=== PATIENT | female | born 1935 | race Caucasian/White ===

== ENCOUNTER 2020-07-17 10:43 | Outpatient (CLI) | payer MEDICARE, SELFPAY ==
--- NOTE | 2020-07-21 16:47 | WPDHOLTEREM ---
Holter/Event Monitor Holter/Event Monitor Date of procedure: 07/17/20 Procedure Type: 24 hour holter monitor Indications: Cardiac arrhythmia Conclusion: 1. 24 hour holter monitor on 07/17/20. 2. Predominant rhythm is sinus rhythm. HR range 49-110 bpm; average HR 67 bpm. 3. There are 3,196 premature supraventricular complexes, 276 supraventricular couplets, 59 supraventricular bigeminy and 27 supraventricular trigeminy. There are 9 runs of atrial tachycardia, fastest at 140 bpm and longest lasting 99 beats. 4. There are 85 premature ventricular complexes. No ventricular tachycardia. 5. No sinoatrial or atrioventricular blocks. No significant pauses greater than 2 seconds. 6. Patient reports symptoms of shortness of breath, heart flutters which demonstrate Sinus rhythm HR range 77-96 bpm with PAC's and one episode of atrial tachycardia at 112 bpm.
== END 2020-07-17 10:44 | disposition home or self-care (01) ==
PROVIDERS: PCP Family Medicine; Visit Provider Family Medicine
DX: I49.8 Other specified cardiac arrhythmias (principal)
CPT/HCPCS: 93225; 93226

== ENCOUNTER 2020-08-25 08:35 | Outpatient (CLI) | payer MEDICARE, SELFPAY ==
--- NOTE | ~2020-08-25 | US_ITS ---
EXAMINATION: US carotid duplex BI DATE: 08/25/2020 09:36 INDICATION: Other specified symptoms and signs involving the circulatory system. TECHNIQUE: Grayscale, color Doppler, and pulsed Doppler images of the cervical carotid arteries were obtained. The degree of vessel stenosis is placed in one of the following categories: normal, <50%, 5 0-69%, >=70% but less than near-occlusion, near-occlusion, or total occlusion. Note that percent sten osis relative to normal distal artery lumen diameter is indirectly measured from velocity measurement s as described by Giuseppe, et al. Radiology 2003; 229:340-346. COMPARISON: None. FINDINGS: RIGHT: The right common carotid artery (CCA) peak systolic velocity (PSV) is 99 cm/s. The right internal car otid artery (ICA) PSV is 147 cm/s. The right ICA end-diastolic velocity (EDV) is 25 cm/s. The right I CA/CCA PSV ratio is 1.5. Grayscale and color Doppler images yield an estimate of <50% diameter reduct ion from plaque in the ICA. There is antegrade flow in the right vertebral artery. LEFT: The left CCA PSV is 106 cm/s. The left ICA PSV is 130 cm/s. The left ICA EDV is 18 cm/s. The left ICA /CCA PSV ratio is 1.2. Grayscale and color Doppler images yield an estimate of <50% diameter reductio n from plaque in the ICA. There is antegrade flow in the left vertebral artery. IMPRESSION: 1. <50% stenosis in the right internal carotid artery. 2. <50% stenosis in the left internal carotid artery. Reviewed, dictated and finalized at location A.
== END 2020-08-25 08:36 | disposition home or self-care (01) ==
LOC: ANHIMG 08:35
PROVIDERS: PCP Family Medicine; Visit Provider Nurse Practitioner Family
DX: I65.23 Occlusion and stenosis of bilateral carotid arteries (principal)
CPT/HCPCS: 93880

== ENCOUNTER → 2021-02-17 14:06 | Outpatient (CLI) | payer MEDICARE, SELFPAY ==
--- NOTE | ~2021-02-17 | XR_ITS ---
XR chest 2V DATE: 02/17/2021 14:47 INDICATION: Emphysema TECHNIQUE: 2 views COMPARISON: 11/22/2016 PA and lateral chest FINDINGS: Mild cardiomegaly. Mitral annulus calcification. There is extensive thoracic aortic calcifi cation. Prominent diffuse osteopenia. Azygos lobe, normal variant. There is moderate bilateral hyperinflation consistent with clinical diagnosis of emphysema. No pulmon esteban infiltrate or consolidation, pleural effusion or pulmonary vascular congestion or pneumothorax is detected. IMPRESSION: Cardiomegaly Aortic atherosclerosis No active pulmonary disease Diffuse osteopenia Reviewed, dictated and finalized at location A.
== END ==
PROVIDERS: PCP Family Medicine; Visit Provider Family Medicine
DX: J43.8 Other emphysema (principal); I51.7 Cardiomegaly; I70.0 Atherosclerosis of aorta; M85.88 Other specified disorders of bone density and structure, other site
CPT/HCPCS: 71046

== ENCOUNTER 2022-04-09 14:17 | Outpatient (CLI) | payer MEDICARE, SELFPAY ==
--- NOTE | ~2022-04-09 | DEXA_ITS ---
Bone Density Report Name: JINNY LANDAVERDE Age: 87 Sex: Female Ethnicity: White Date of : 1935 Indication: osteopenia; height loss; prior fracture; cancer; Referring Provider: JOHN HENLEY Study: Bone densitometry was performed. Exam Date: April 09, 2022 Accession number: [id number] Bone Density: Region BMD T-score Z-score Classification AP Spine(L3, L4) 0.966 -1.2 1.8 Osteopenia Femoral Neck (Left) 0.645 -1.8 0.7 Osteopenia Total Hip (Left) 0.699 -2.0 0.3 Osteopenia Femoral Neck (Right) 0.612 -2.1 0.4 Osteopenia Total Hip (Right) 0.648 -2.4 -0.1 Osteopenia Total Hip Mean 0.674 -2.2 0.1 Osteopenia World Health Organization criteria for BMD impression classify patients as: Normal (T-score at or above -1.0), Osteopenia (T-score between -1.0 and -2.5), or Osteoporosis (T-score at or below -2.5). 10-year Fracture Risk: FRAX not reported because: Prior hip or vertebral fracture Previous Exams: Region Exam Age BMD T-score BMD Change BMD Change Date g/cm2 vs Baseline vs Previous AP Spine (L3-L4) 04/09/2022 87 0.966 -1.2 0.044 (4.7%)* 0.044 (4.7%)* 09/07/2016 81 0.922 -1.6 Total Hip(Left) 04/09/2022 87 0.699 -2.0 -0.051 (-6.9%) -0.051 (-6.9%) 09/07/2016 81 0.751 -1.6 Total Hip(Right) 04/09/2022 87 0.648 -2.4 -0.028 (-4.2%) -0.028 (-4.2%) 09/07/2016 81 0.676 -2.2 *Denotes significance at 95% confidence level, LSC for AP Spine = 0.022 g/cm2, LSC for Total Hip = 0.027 g/cm2 Clinical Information Provided by Patient: Have had a previous hip or vertebral fracture Has had a low trauma fracture Has used the following medications: Vitamin D, Calcium Has the following medical conditions: Cancer Patient maximum height was 66 Menopause Age: 48 No regular weight bearing exercise Drinks caffeinated beverages Onset of menses at age 13 Number of children 1 Impression: The patient has low bone mass, based on the Right Total Hip T-score. The patient has risk factors, including: previous fracture. The BMD for the Total Hip(Left) decreased, changing by -6.9% since the last DXA exam. The BMD for the Total Hip(Right) decreased, changing by -4.2% since the last DXA exam. Discussion: INCREASED RISK OF FRACTURE DUE TO HISTORY OF FRACTURE. The patient's previous fracture puts the patient at high risk of a future fracture. In untreated patients, the risk of osteoporotic fracture increases approximately two-fold for each 1.0 SD dec
== END 2022-04-09 14:18 | disposition home or self-care (01) ==
PROVIDERS: PCP Family Medicine; Visit Provider Internal Medicine Endocrinology, Diabetes & Metabolism
DX: M85.89 Other specified disorders of bone density and structure, multiple sites (principal); E05.90 Thyrotoxicosis, unspecified without thyrotoxic crisis or storm
CPT/HCPCS: 77080

== ENCOUNTER 2022-05-23 11:14 | Inpatient (IN) | payer MEDICARE, SELFPAY ==
[2022-05-23] VITALS (8 sets, daily range): BP systolic 134–163; BP diastolic 44–69; PULSE 70–82; RESP 16–18; TEMP 36.3–36.4; O2SAT 95–100; BMI 24.4
--- NOTE | ~2022-05-23 | XR_ITS ---
XR chest 2V DATE: 05/23/2022 11:45 INDICATION: Shortness of breath TECHNIQUE: PA and lateral views COMPARISON: 2 view chest FINDINGS: Borderline heart size. Aortic calcification. There is mild pulmonary vascular congestion and redistribution. There are small pleural effusions. There is patchy bilateral lower lung infiltrate and/or atelectasis, left greater than right. Differen tial diagnosis for the pulmonary infiltrates includes pneumonia, aspiration and/or pulmonary edema. Diffuse osteopenia. Dextroscoliosis of the thoracolumbar spine. IMPRESSION: Mild congestive heart failure Bilateral lower lung infiltrates, left greater than right, suggesting pneumonia, atelectasis and/or p ulmonary edema Bilateral small pleural effusions Aortic calcification Reviewed, dictated and finalized at location A. IMPRESSION: Mild congestive heart failure Bilateral lower lung infiltrates, left greater than right, suggesting pneumonia , atelectasis and/or pulmonary edema Bilateral small pleural effusions Aortic calcification
--- NOTE | 2022-05-23 11:21 | ECG_ITS ---
Measurements Intervals [place] Rate: 76 P: 95 SC: 235 QRS: -7 QRSD: 138 T: 104 QT: 426 QTc: 480 Interpretive Statements SINUS RHYTHM WITH FIRST DEGREE AV BLOCK LEFT BUNDLE BRANCH BLOCK BASELINE ARTIFACT- V1 ABNORMAL ECG Electronically Signed On 05-23-2022 23:17:09 CDT by Sony Mauricio D.O.
[2022-05-23 11:48] LABS: Basophils Percent Auto 0.4 % (0.2-1.2); Eosinophils Absolute Auto 0.1 K/mm3 (0-0.3); Eosinophils Percent Auto 0.5 % (0-4.4); Hematocrit 34.5 % (37.0-47.0); Hemoglobin 10.7 g/dL (12.0-15.0); Immature Granulocyte Absolute 0.04 K/mm3 (0.00-0.031); Immature Granulocyte Percent A 0.4 % (0-0.5); Lymphocytes Absolute Auto 1.07 K/mm3 (0.9-3.2); Lymphocytes Percent Auto 10.3 % (18.3-44.2); Mean Corpuscular Hemoglobin 28.2 pg (26-34); Mean Platelet Volume 9.6 fl (7.4-10.4); Monocytes Absolute Auto 0.6 K/mm3 (0.1-0.6); Monocytes Percent Auto 5.6 % (2.6-8.5); Neutrophils Absolute Auto 8.6 K/mm3 (1.3-6.7); Neutrophils Percent Auto 82.8 % (45.5-73.1); Platelet Count Result 389 k/mm3 (150-375); Red Blood Count 3.79 M/mm3 (4.2-5.4); Red Cell Distribution Width 13.7 % (11.5-14.5); White Blood Count 10.4 K/mm3 (4.5-10.0)
[2022-05-23 12:02] LABS: Alanine Aminotransferase 31 U/L (6-35); Albumin Level 4.3 g/dL (3.5-5.1); Alkaline Phosphatase 74 U/L (38-126); Anion Gap 4 mmol/L (8-16); Aspartate Amino Transferase 32 U/L (14-36); Bilirubin,Total 1.2 mg/dL (0.2-1.3); Blood Urea Nitrogen 13 mg/dL (7-17); Calcium 8.8 mg/dL (8.4-10.2); Carbon Dioxide 31 mmol/L (22-30); Chloride 96 mmol/L (98-107); Estimated CRCL calculation 37 ml/min; Estimated Glomerular Filt Rate > 60; Glucose 115 mg/dL (65-110); Potassium 4.4 mmol/L (3.4-5.0); Sodium 131 mmol/L (137-145)
[2022-05-23 14:28] LABS: SARS-CoV-2 RNA PCR Negative
--- NOTE | 2022-05-23 14:36 | ED.GENADULT ---
HPI - General Adult General Chief complaint: Shortness of Breath/Dyspnea Stated complaint: SHORTNESS OF BREATH Time Seen by Provider: 05/23/22 13:32 History of Present Illness HPI narrative: 87-year-old female presented the emergency department for evaluation of worsening exertional shortness of breath over the last 2 days. Patient states that normally she is able to walk a fairly significant distance without having any shortness of breath. Patient states since Tuesday she is getting tired simply by walking around the room. Patient denies any prior history of congestive heart failure. Patient does have lower extremity edema which she states is normal for her. Related Data Home Medications Medication Instructions Recorded Confirmed aspirin 81 mg tablet,delayed 81 mg PO DAILY 01/05/20 03/01/22 release (Aspir-) cholecalciferol (vitamin D3) 50 50 mcg PO DAILY 08/28/21 03/01/22 mcg (2,000 unit) capsule sodium chloride 5 % eye drops 1 drp EACH EYE BID 08/28/21 03/01/22 Allergies Allergy/AdvReac Type Severity Reaction Status Date / Time alendronate sodium AdvReac Unknown Gastrointestinal Verified 05/23/22 11:21 [From Fosamax] Upset Review of Systems Review of Systems: CONSTITUTIONAL: Denies fever, chills, or sweats. EYES: Denies visual changes, redness, or discharge. ENT: Denies rhinorrhea, congestion, sore throat, or otalgia. CARDIOVASCULAR: Denies chest pain, palpitations, or edema. RESPIRATORY: See HPI GASTROINTESTINAL: Denies abdominal pain, nausea, vomiting, or diarrhea. GENITOURINARY: Denies dysuria or hematuria. SKIN: Denies rash or itching. MUSCULOSKELETAL: Denies back pain, joint pain, or myalgia. NEUROLOGIC: Denies headache, numbness, or weakness. [facility] Past Medical History Medical History (Updated 05/23/22 @ 18:44 by Edu Womack MD) Anxiety disorder, unspecified BMI 26.0-26.9,adult Carotid bruit Edema of both lower extremities Essential (primary) hypertension GERD without esophagitis Graves disease Hyperthyroidism Low vitamin D level Lumbar spondylosis Murmur Osteopenia Other emphysema Psoriasis Sinus arrhythmia Weight loss Surgical History Surgical History History of cataract surgery both eyes 06/18/21 07/02/21 Family History Family History Sibling Family history of diabetes mellitus in first degree relative Family history of pancreatic cancer Family history of malignant neoplasm of bone Family history of malignant neoplasm of breast in first degree relative Father Family history of pancreatic cancer Social History Social History Second hand tobacco smoke exposure: No Alcohol intake: never Exam Narrative: APPEARANCE: Well appearing, no pain, no distress, well-nourished. HEAD: normocephalic, atraumatic. EYES: PERRLA/EOMI, conjunctivae clear. THROAT: Pharynx clear, no exudate. NECK: Supple. No adenopathy, no masses. RESPIRATORY: Airway patent, respirations nonlabored. Rhonchi bilaterally. CARDIOVASCULAR: Regular rate and rhythm without murmurs rubs or gallops. ABDOMINAL: Soft, nontender, nondistended, normal bowel sounds MUSCULOSKELETAL: Moves all extremities. Lower extreme edema worse on right than left NEURO: Alert. Cranial nerves II through XII intact. Grossly intact SKIN: Warm, dry. Normal Color Course Course Emergency Course: Patient had a chest x-ray showing pulm edema versus pneumonia. Patient does hav an elevated BNP. Patient is afebrile. Patient does have a mild leukocytosis. COVID is negative. Low suspicion for pneumonia higher suspicion for pulmonary edema/new onset CHF. Patient has no prior history of CHF. Patient does not take a diuretic. Patient was treated with IV Lasix and did have a significant output to this. Patient was ambulated in the emergency department and still state
[2022-05-23 14:46] LABS: NT Pro B Type Natriuretic Pept 2130 pg/mL (5-100)
[2022-05-23] MEDS: FUROSEMIDE INJ 40 MG/4 ML VIAL IV PUSH ×2 (15:33→21:08)
--- NOTE | 2022-05-23 18:09 | ECG_ITS ---
Rate 76 CO 235 QRSd 138 QT 426 QTc 480 --[place]-- P 95 QRS -7 T 104 SINUS RHYTHM WITH FIRST DEGREE AV BLOCK LEFT BUNDLE BRANCH BLOCK BASELINE ARTIFACT- V1 ABNORMAL ECG Electronically Signed On 05-23-2022 23:17:09 CDT by Sony Mauricio D.O. NO PREVIOUS ECG AVAILABLE FOR COMPARISO MTDD
--- NOTE | 2022-05-23 18:48 | PM.IMHP ---
H&P: HPI History of Present Illness Date/Time: 05/23/22 18:20 Chief Complaint: Dyspnea Narrative: This pleasant 87 year old female patient with Significant past medical history of anxiety, carotid bruit, bilateral lower extremity edema that is chronic, hypertension, GERD, COPD, Graves disease, hyperthyroidism, vitamin-D deficiency, lumbar spondylosis, heart murmur, osteopenia, psoriasis, sinus arrhythmia who presents to the emergency room this evening with complaints of several days of increased dyspnea with exertion. Patient has no prior history of heart failure, and she endorses that her bilateral lower extremities are Always swollen to some degree. She denies any new cough, fever, chest pain or dyspnea at rest. The only aggravating factor is increased exertion. She was given a dose of IV Lasix in the emergency room with good results, however she does not feel safe going home at this time. Her chest x-ray was significant for pulmonary edema versus pneumonia and her BNP was greater than 2130. Patient has not shown any symptoms of acute infection. No echocardiogram is noted on file for this patient. Her COVID test is negative. Patient denies this feeling like a typical COPD exacerbation for her. Hospitalist service is admitting her to the hospital for cardiac evaluation for potential heart failure, with cardiology consult and further workup of dyspnea. At the time of my exam the patient denies any chest pain, she denies any dyspnea she is lying still in bed at this time. She denies any nausea, vomiting, diarrhea and no urinary complaints of burning, urgency, frequency, hematuria. Review of Systems Review of Systems: All systems reviewed & are unremarkable except as noted in HPI and below PMFSH Past Medical History Medical History Anxiety disorder, unspecified BMI 26.0-26.9,adult Carotid bruit Edema of both lower extremities Essential (primary) hypertension GERD without esophagitis Graves disease Hyperthyroidism Low vitamin D level Lumbar spondylosis Murmur Osteopenia Other emphysema Psoriasis Sinus arrhythmia Weight loss Surgical History Surgical History History of cataract surgery both eyes 06/18/21 07/02/21 Family History Family History Sibling Family history of diabetes mellitus in first degree relative Family history of pancreatic cancer Family history of malignant neoplasm of bone Family history of malignant neoplasm of breast in first degree relative Father Family history of pancreatic cancer Social History Social History Second hand tobacco smoke exposure: No Alcohol intake: never Meds Home Medications and Allergies Home Medications Medication Instructions Recorded Confirmed Type aspirin 81 mg tablet,delayed 81 mg PO DAILY 01/05/20 03/01/22 History release (Aspir-) calcipotriene 0.005 % topical 1 applic topical BID #60 grams 07/07/20 03/01/22 Rx cream (Dovonex) bisacodyl 5 mg tablet,delayed 5 mg PO ONCE #20 tabs 02/17/21 03/01/22 Rx release (Bisa-Lax (bisacodyl)) cholecalciferol (vitamin D3) 50 50 mcg PO DAILY 08/28/21 03/01/22 History mcg (2,000 unit) capsule sodium chloride 5 % eye drops 1 drp EACH EYE BID 08/28/21 03/01/22 History lisinopril 20 mg tablet 20 mg PO DAILY #30 tabs 09/27/21 03/01/22 Rx omeprazole 40 mg capsule,delayed See Rx Instructions .Route 12/17/21 03/01/22 Rx release .COMPLEX #90 caps methimazole 10 mg tablet 10 mg PO DAILY 90 days #90 tabs 12/28/21 03/01/22 Rx metoprolol succinate 25 mg 50 mg PO DAILY #90 tabs 03/02/22 Rx tablet,extended release 24 hr sennosides 8.6 mg tablet (Senokot) 17.2 mg PO DAILY PRN constipation 03/22/22 Rx #30 tabs alendronate 70 mg tablet (Fosamax) 70 mg PO WEEKLY #14 t
--- NOTE | 2022-05-23 19:55 | ADMGEN ---
This patient, Nestor Carter, was admitted to Medical Room 246-01. Patient/family oriented to hospital policies and general routines including ID bracelet, bed and alarms, visiting hours, pain management, procedures, bathroom and other care routines, personal items, smoking policy, room service/diet, and visiting hours. Information on how to activate the Rapid Response Team has been discussed. Patient/Family are encouraged to report perceived risks to care and to ask questions if they do not understand what they are told or what they should do.
[2022-05-23] MEDS: FLUTICASONE/SALMETEROL 115-21 MCG INHALER 1 PUFF 2 PUFF INHALATION (20:32)
[2022-05-23] MEDS: SENNOSIDES 8.6 MG TABLET PO (21:08)
[2022-05-24] VITALS (18 sets, daily range): BP systolic 106–146; BP diastolic 38–73; PULSE 58–150; RESP 16–18; TEMP 36.5–37; O2SAT 93–97; BMI 24.3
--- NOTE | 2022-05-24 | ECHO_ITS ---
Patient Info Name: Nestor Carter Age: 87 years : 1935 Gender: Female Ht: 61 in Wt: 136 lbs BSA: 1.64 m2 HR: 92 bpm BP: 146 / 56 mmHg Heart Rhythm: Sinus Rhythm Exam Date: 05/24/2022 8:33 AM Exam Location: [facility] Patient Status: Inpatient Admit Date: 05/23/2022 Staff Ordering Physician: Sola Ocasio Leaf Tinner: Rodrigo Jalloh RDCS, RT Attending Provider: Cortez Jay MD Referring Physician: Amarjit FARRAR; Exam Type: CA echo doppler color flow Study Info Indications R06.00 - Dyspnea, unspecified Complete two-dimensional, color flow and Doppler transthoracic echocardiogram is performed. Strain analysis performed. Summary 1. Complete two-dimensional, color flow and Doppler transthoracic echocardiogram is performed. 2. There is severe concentric increased left ventricular wall thickness. 3. Left ventricular systolic function is hyperdynamic, estimated at >70%. 4. The left ventricular diastolic function is grade II diastolic dysfunction. 5. Left atrial chamber dimension is severely enlarged. 6. Severe mitral annular calcification. 7. There is trace mitral valve regurgitation. Left Ventricle Left ventricular chamber dimension is normal. Left ventricular systolic function is hyperdynamic, estimated at >70%. There is severe concentric increased left ventricular wall thickness. The left ventricular diastolic function is grade II diastolic dysfunction. Right Ventricle Right ventricular chamber dimension is normal. Left Atria Left atrial chamber dimension is severely enlarged. Right Atria Right atrial chamber dimension is normal. Aortic Valve The aortic valve is normal. Pulmonic Valve The pulmonic valve is normal. Mitral Valve The mitral valve has normal leaflets. There is trace mitral valve regurgitation. Severe mitral annular calcification. Tricuspid Valve The tricuspid valve leaflets are normal. There is mild tricuspid valve regurgitation. Severe pulmonary hypertension, estimated pulmonary arterial systolic pressure is 70 mmHg. Pericardium/Pleural The pericardium appears normal. Aorta The aortic root size at the sinus of Valsalva is normal. Left Ventricular Outflow Tract Name Value Normal LVOT 2D LVOT Diameter 2.0 cm LVOT Doppler LVOT Peak Gradient 9 mmHg LVOT Mean Gradient 4 mmHg LVOT VTI 27 cm LVOT VTI/AV VTI Ratio 0.9 LVOT Stroke Volume 82 ml LVOT CO 7.5 l/min LVOT CI 4.5 l/min/m2 Mitral Valve Name Value Normal MV Doppler MV Decel [place] 863 cm/s2 MV PHT 47 ms MV Area (PHT)
[2022-05-24 05:10] LABS: Basophils Percent Auto 0.5 % (0.2-1.2); Eosinophils Absolute Auto 0.1 K/mm3 (0-0.3); Eosinophils Percent Auto 0.9 % (0-4.4); Hematocrit 34.6 % (37.0-47.0); Hemoglobin 10.6 g/dL (12.0-15.0); Immature Granulocyte Absolute 0.02 K/mm3 (0.00-0.031); Immature Granulocyte Percent A 0.3 % (0-0.5); Lymphocytes Percent Auto 13.5 % (18.3-44.2); Mean Corpuscular HGB Conc 30.6 g/dl (32-36); Mean Corpuscular Hemoglobin 27.9 pg (26-34); Mean Corpuscular Volume 91.1 fl (80-100); Mean Platelet Volume 9.9 fl (7.4-10.4); Monocytes Absolute Auto 0.6 K/mm3 (0.1-0.6); Monocytes Percent Auto 7.8 % (2.6-8.5); Neutrophils Absolute Auto 5.7 K/mm3 (1.3-6.7); Platelet Count Result 357 k/mm3 (150-375); Red Cell Distribution Width 13.8 % (11.5-14.5); White Blood Count 7.4 K/mm3 (4.5-10.0)
[2022-05-24 05:20] LABS: Alanine Aminotransferase 26 U/L (6-35); Albumin Level 3.9 g/dL (3.5-5.1); Alkaline Phosphatase 69 U/L (38-126); Anion Gap 3 mmol/L (8-16); Aspartate Amino Transferase 25 U/L (14-36); Bilirubin,Total 0.9 mg/dL (0.2-1.3); Blood Urea Nitrogen 13 mg/dL (7-17); Calcium 8.6 mg/dL (8.4-10.2); Carbon Dioxide 35 mmol/L (22-30); Chloride 96 mmol/L (98-107); Estimated CRCL calculation 29 ml/min; Estimated Glomerular Filt Rate 59; Glucose 103 mg/dL (65-110); Magnesium 1.9 mg/dL (1.6-2.3); Potassium 3.9 mmol/L (3.4-5.0); Sodium 134 mmol/L (137-145)
--- NOTE | 2022-05-24 07:47 | PM.IMPN ---
Progress Note: A&P Assessment and Plan (1) Exertional shortness of breath: Code(s): R06.02 - Shortness of breath Status: Acute Assessment and Plan: - suspect heart failure. - Echocardiogram pending - daily weight - accurate intake and output -consult Cardiology, appreciate assistance and recommendations - continue Lasix 40 mg q.12 hours IV push. - daily labs and vital signs. - Supplemental potassium initiated at 10 mEq p.o. daily, may increase or discontinue as needed. - heart healthy diet (2) Edema of both lower extremities: Code(s): R60.0 - Localized edema Status: Acute Assessment and Plan: - Etiology uncertain. Suspect secondary to certain degree of heart failure, however may also be secondary to Norvasc. - Monitor for resolution and or worsening. - Elevate extremities - fall precautions - heart healthy diet (3) Hyperthyroidism: Code(s): E05.90 - Thyrotoxicosis, unspecified without thyrotoxic crisis or storm Status: Acute Assessment and Plan: - Graves disease, previously took methimazole. - check TSH. - continue telemetry and metoprolol. (4) Low vitamin D level: Code(s): R79.89 - Other specified abnormal findings of blood chemistry Status: Acute Assessment and Plan: - Continue supplemental cholecalciferol (5) Essential (primary) hypertension: Code(s): I10 - Essential (primary) hypertension Status: Acute Assessment and Plan: - continue home medications of lisinopril 20 mg p.o. daily, metoprolol succinate 50 mg p.o. daily and amlodipine 10 mg daily - monitor blood pressure with vital signs. - Heart healthy diet (6) Anxiety disorder, unspecified: Qualifiers: Anxiety disorder type: generalized anxiety disorder Qualified Code(s): F41.1 - Generalized anxiety disorder Code(s): F41.9 - Anxiety disorder, unspecified Status: Acute Assessment and Plan: - continue p.r.n. Xanax (7) COPD (chronic obstructive pulmonary disease): Code(s): J44.9 - Chronic obstructive pulmonary disease, unspecified Status: Acute Assessment and Plan: - continue budesonide/ formoterol here Advair is substituted. - Monitor SpO2 with vital signs. Subjective Date/time seen: 05/24/22 07:47 Patient is alert and oriented x4. She is sitting up in the bed. Echocardiogram and just finished. Cardiology will be consulted for further recommendations and management pending echocardiogram. Patient current continues to receive diuresis 40 mg IVP Lasix. With good results. Review of Systems Review of Systems: All systems reviewed & are unremarkable except as noted in HPI and below Exam Narrative: General: No acute distress. Mental Status: Awake, alert and oriented to person, place, and time with clear speech. Skin: Skin in warm, dry and intact without rashes or lesions. Head: Normocephalic and atraumatic. Eyes: Conjunctivae are clear without exudates or hemorrhage. Sclera is non-icteric. EOM are intact, PERRLA. Ears: The external ear and canal are non-tender and without swelling or discharge. Nose: Nasal mucosa is pink and moist. Septum midline. Nares patent bilaterally. Throat: Oral mucosa pink and moist with good dentition. Tongue midline. Neck: The neck supple without adenopathy. Trachea midline. No JVD. Cardiac: S1 and S2 regular rate and rhythm. Positive murmurs, no gallops, or rubs auscultated. Respiratory: Chest wall symmetric, nontender and without deformity or trauma. Respirations even and unlabored. Lung sounds are clear to auscultation in all lobes bilaterally without wheezes, rhonchi, or rales. Abdominal: Abdomen soft, round and non-tender to palpation. Bowel sounds present and normoactive in all 4 quadrants. Spine: Neck and back with grossly normal curvature, no deformity in appearance or signs of trauma. Extremities: Upper and lower extremities atraumatic wit
[2022-05-24] MEDS: POTASSIUM CHLORIDE 10 MEQ TABLET.ER PO (08:03)
[2022-05-24] MEDS: ENOXAPARIN 40 MG/0.4 ML SYRINGE SUB-Q (08:04)
[2022-05-24] MEDS: lisinopriL 20 MG TABLET PO (08:04)
[2022-05-24] MEDS: PANTOPRAZOLE 40 MG TABLET PO (08:04)
[2022-05-24] MEDS: amLODIPine BESYLATE 5 MG TABLET 10 MG PO (08:04)
[2022-05-24] MEDS: ASPIRIN 81 MG ENTERIC TABLET PO (08:04)
[2022-05-24] MEDS: FUROSEMIDE INJ 40 MG/4 ML VIAL IV PUSH ×2 (08:04→21:12)
[2022-05-24] MEDS: CHOLECALCIFEROL 1,000 UNITS TABLET 2000 UNITS PO (08:04)
[2022-05-24] MEDS: METOPROLOL SUCCINATE EXT REL 50 MG TABCR PO (08:05)
--- NOTE | 2022-05-24 10:56 | PCNSR ---
On 05/24/22, the student, Josephine Scott, provided care and completed [facility] documentation on this patient. I have reviewed the student's documentation and agree with the findings.
--- NOTE | 2022-05-24 13:31 | PM.CNCAR ---
Assessment and Plan Assessment and plan (1) CHF (congestive heart failure): Qualifiers: Heart failure type: unspecified Code(s): I50.9 - Heart failure, unspecified Status: Acute Plan this is an 87-year-old lady with longstanding hypertension she has mild mitral valve regurgitation impressive left ventricular hypertrophy with vigorous systolic function. She presents with some shortness of breath and appears to have mild diastolic heart failure. She is receiving IV furosemide in is improved. I would recommend probably tomorrow transition her to oral furosemide in hopes of preventing over diuresis. Her physical exam at this time does not suggest that she is significantly or severely volume overloaded. I reassured her that her echocardiogram continues to demonstrate no evidence of systolic heart failure and her valvular heart disease is quite mild. I would anticipate her being ready for discharge in the next 24-48 hours. A low dose of oral furosemide should be part of her discharge regimen. Cortez Suarez MD [facility] History of Present Illness History of Present Illness Consult date/time: 05/24/22 13:31 Consult reason: shortness of breath Reason For Visit: CHF, Exertional Shortness of Breath Narrative: This is a very pleasant elderly 87-year-old lady that I see in the office for follow-up of mild valvular heart disease and hypertension. She entered the hospital here yesterday because of some shortness of breath that is been coming on she thinks for about 5-7 days that she has not had before. When the shortness of breath became more problematic couple of days ago she finally came in for evaluation. She was felt to be in some mild congestive heart failure by the appearance of her chest x-ray with some mild small bilateral pleural effusions. She was placed on some IV furosemide and is feeling better today. She has a history of longstanding hypertension and left ventricular hypertrophy with good systolic function. I saw her in the hospital for the last couple of years initially because of an abnormal Holter monitor. She had the sense of some palpitations and a Holter monitor had been done by her PCP which demonstrated a lot of atrial ectopic activity but no other significant arrhythmia. She has a cyst murmur of mitral valve regurgitation which is mild by echo and with these issues she has been followed in the office. Her last visit with me was about 6 months ago which time she was asymptomatic. Last year she was found also to have Graves disease she was significantly hyperthyroid. I started her on beta-shayne treatment to help the symptoms of this she was seen by an elective machinist 2nd shift treated this with methimazole. Recently she states finally her laboratory data demonstrates her to be euthyroid. She continues to take methimazole. Echocardiogram done during this hospitalization which I just looked at this morning continues to show impressive concentric LVH with vigorous, hyperdynamic looking systolic function a heavily calcified mitral valve annulus and a markedly dilated left atrium. She is in sinus rhythm with left bundle branch block. He is comfortable at the time of providing this history she is denying any orthopnea PND or accumulating edema. Review of Systems Constitutional: Constitutional: Reports no additional constitutional complaints Eyes: Eyes: Reports no additional eye complaints ENT: Reports system reviewed and no additional complaints, except as documented Cardiovascular: Cardiovascular: Reports no additional cardiovascular complaints Respiratory: Respiratory: Reports dyspnea on exertion Gastrointestinal: Gastrointestinal: Reports no additional gastrointestinal complaints Musculoskeletal: Musculoskeletal: Reports no additional musculoskeletal complaints Integumentary/Breasts: Skin/Breast: Reports system reviewed and no additional complaints, except as docu Neurologic: Reports sys
--- NOTE | 2022-05-24 16:21 | ECG_ITS ---
Measurements Intervals [place] Rate: 151 P: TN: 0 QRS: -27 QRSD: 124 T: 125 QT: 296 QTc: 470 Interpretive Statements SUPRAVENTRICULAR TACHYCARDIA LEFT BUNDLE BRANCH BLOCK ABNORMAL ECG Electronically Signed On 05-24-2022 18:54:35 CDT by Sony Mauricio D.O.
[2022-05-24] MEDS: ALPRAZolam (*CRX) 0.25 MG TABLET PO (16:36)
[2022-05-24] MEDS: SODIUM CHLORIDE 0.9% IV 500 ML 100 ML IRRIGATION (16:45)
--- NOTE | 2022-05-24 16:45 | PC.NURSE ---
1615 Pt c/o nausea and feeling hot. On tele with hr jumping up in 150'2 then back down to low 100's. Bp 130/73. RA sat 97%. Wendy Guo HEAD TELLER notified
--- NOTE | 2022-05-24 16:47 | PC.NURSE ---
1624 [facility]ARD ESC[facility] SET UP ON FLOOR TO SEE PATIENT. STAT EKG ORDERED.
[2022-05-24] MEDS: METOPROLOL TARTRATE 12.5 MG TABLET PO (16:48)
--- NOTE | 2022-05-24 18:16 | PC.NURSE ---
This patient, Nestor Carter, was transferred to IMU on 05/24/22 at 1816. Personal belongings sent with patient. Report given to LIZZETH ZHENG. Appropriate documentation sent with patient.
[2022-05-24] MEDS: AMIODARONE 150 MG/D5W 100 ML 150 MG/100 ML BAG 600 MG IV CONT (18:21)
--- NOTE | 2022-05-24 18:36 | PC.NURSE ---
This patient, Nestor Carter, was received from [[id number] ] on 05/24/22 at 1808. Patient/family oriented to unit policies and routines
[2022-05-24] MEDS: FLUTICASONE/SALMETEROL 115-21 MCG INHALER 1 PUFF 2 PUFF INHALATION (20:30)
[2022-05-24] MEDS: AMIODARONE 360 MG/D5W 200 ML 360 MG/200 ML BAG 33.33 MG IV CONT (21:00)
[2022-05-24] MEDS: ENOXAPARIN 60 MG/0.6 ML SYRINGE 58 MG SUB-Q (21:13)
[2022-05-25] VITALS (20 sets, daily range): BP systolic 98–122; BP diastolic 37–46; PULSE 63–88; RESP 16–20; TEMP 36.4–36.8; O2SAT 97–99
[2022-05-25] MEDS: AMIODARONE 360 MG/D5W 200 ML 360 MG/200 ML BAG 16.67 MG IV CONT (03:15)
[2022-05-25] MEDS: PANTOPRAZOLE 40 MG TABLET PO (08:34)
[2022-05-25] MEDS: ASPIRIN 81 MG ENTERIC TABLET PO (08:34)
[2022-05-25] MEDS: CHOLECALCIFEROL 1,000 UNITS TABLET 2000 UNITS PO (08:34)
[2022-05-25] MEDS: POTASSIUM CHLORIDE 10 MEQ TABLET.ER PO (08:34)
[2022-05-25] MEDS: FLUTICASONE/SALMETEROL 115-21 MCG INHALER 1 PUFF 2 PUFF INHALATION ×2 (09:09→19:21)
--- NOTE | 2022-05-25 09:21 | PM.IMPN ---
Progress Note: A&P Assessment and Plan (1) Exertional shortness of breath: Code(s): R06.02 - Shortness of breath Status: Acute Assessment and Plan: - Echo from yesterday 05/24/2022:?1. Complete two-dimensional, color flow and Doppler transthoracic echocardiogram is performed. ? 2. There is severe concentric increased left ventricular wall thickness. ? 3. Left ventricular systolic function is hyperdynamic, estimated at >70%. ? 4. The left ventricular diastolic function is grade II diastolic dysfunction. ? 5. Left atrial chamber dimension is severely enlarged. ? 6. Severe mitral annular calcification. ? 7. There is trace mitral valve regurgitation. - daily weight - accurate intake and output -I spoke with Cardiology regarding patient's treatment plan. Will switch her to oral Lasix now that her DM a is pretty much gone now. Patient had a run of SVT yesterday which may be atrial flutter. May consider anticoagulation. Patient's Ronald Vasc score is a 5. Patient is on subcu Lovenox therapeutic at this time. Further recommendation per Cardiology. -change IV Lasix to p.o. today and continue with supplemental potassium. - daily labs and vital signs. - Supplemental potassium initiated at 10 mEq p.o. daily, may increase or discontinue as needed. - heart healthy diet -continue with lisinopril. However Norvasc may be causing some edema as well. (2) Edema of both lower extremities: Code(s): R60.0 - Localized edema Status: Acute Assessment and Plan: - may also be secondary to Norvasc. - Monitor for resolution and or worsening. - Elevate extremities - fall precautions - heart healthy diet -daily weights. -strict I&O. -continue with p.o. Lasix and potassium (3) Hyperthyroidism: Code(s): E05.90 - Thyrotoxicosis, unspecified without thyrotoxic crisis or storm Status: Acute Assessment and Plan: - Graves disease, previously took methimazole. - continue telemetry and metoprolol. -TSH is 3.080. (4) Low vitamin D level: Code(s): R79.89 - Other specified abnormal findings of blood chemistry Status: Acute Assessment and Plan: - Continue supplemental cholecalciferol (5) Essential (primary) hypertension: Code(s): I10 - Essential (primary) hypertension Status: Acute Assessment and Plan: - continue home medications of lisinopril 20 mg p.o. daily, metoprolol succinate 50 mg p.o. daily and amlodipine 10 mg daily - monitor blood pressure with vital signs. - Heart healthy diet -her blood pressure is low today. (6) Anxiety disorder, unspecified: Qualifiers: Anxiety disorder type: generalized anxiety disorder Qualified Code(s): F41.1 - Generalized anxiety disorder Code(s): F41.9 - Anxiety disorder, unspecified Status: Acute Assessment and Plan: - continue p.r.n. Xanax (7) COPD (chronic obstructive pulmonary disease): Code(s): J44.9 - Chronic obstructive pulmonary disease, unspecified Status: Acute Assessment and Plan: - continue budesonide/ formoterol here Advair is substituted. - Monitor SpO2 with vital signs. Plan I had plan to discharge her today. However spoke with cardiology who is going to determine whether not the patient will be on anticoagulation. The patient is currently on an aspirin. The patient stated that she is too weak to go home today. However the nurse stated that the patient was able to walk to the bathroom without difficulty. Her edema is down and she is -580 mL on her I/o. However the patient stated that she lives home alone and does not feel comfortable going home today. I will have PT and OT evaluate her and have palliative care physician evaluate the patient for some home health. Subjective Date/time seen: 05/25/22 09:21Thiherb is a 87-year-old female patient who came in on 05/24/2022 with exertional shortness of breath. The patient was started on IV Lasix and h
[2022-05-25] MEDS: METOPROLOL SUCCINATE EXT REL 50 MG TABCR PO (09:51)
--- NOTE | 2022-05-25 10:47 | PM.PNCARD ---
Progress Note: A&P Assessment and Plan (1) CHF (congestive heart failure): Qualifiers: Heart failure type: unspecified Code(s): I50.9 - Heart failure, unspecified Status: Acute Assessment and Plan: Presents with mild shortness of breath and is being treated for acute on chronic diastolic heart failure. Improved with IV diuresis. Should be shifted to a low dose of p.o. furosemide upon discharge. (2) SVT (supraventricular tachycardia): Code(s): I47.1 - Supraventricular tachycardia Status: Acute Assessment and Plan: Yesterday evening had some SVT and was symptomatic with palpitations, nausea, light headedness. She converted to sinus rhythm on amiodarone drip which has been stopped at this point. Will place 30 day traffic monitor specialist to assess for recurrence of SVT (? atrial flutter) or any other arrhythmias. Continue usual beta shayne dose. Subjective Date/time seen: 05/25/22 10:47 Cardiology follow up for CHF, SVT Patient transferred to IMU yesterday evening because of SVT that she was very symptomatic with. She converted to sinus rhythm on amiodarone drip which has now been discontinued. She is feeling much better this morning and denies any palpitations, shortness of breath. She complains of feeling weak. Review of Systems Constitutional: Constitutional: Reports no additional constitutional complaints Eyes: Eyes: Reports no additional eye complaints ENT: Reports system reviewed and no additional complaints, except as documented Cardiovascular: Cardiovascular: Reports no additional cardiovascular complaints and Reports dyspnea on exertion Respiratory: Respiratory: Reports dyspnea on exertion Gastrointestinal: Gastrointestinal: Reports no additional gastrointestinal complaints Musculoskeletal: Musculoskeletal: Reports no additional musculoskeletal complaints Integumentary/Breasts: Skin/Breast: Reports system reviewed and no additional complaints, except as docu Neurologic: Reports system reviewed and no additional complaints, except as documented Endocrine: Endocrine: Reports as per HPI Hematologic/Lymphatic: Hematologic/Lymphatic: Reports no additional hematologic/lymphatic complaints Allergic/Immunologic: Allergic/Immunologic: Reports no additional allergic/immunologic complaints Exam Const: General: comfortable and no acute distress Other: Very pleasant elderly lady no distress of any kind HENMT: Mouth: Yes moist mucous membranes Eyes: Sclera: sclerae normal Pupils: Equal, round and reactive pupils present Neck: Neck: supple and no JVD Other: carotid pulses are normal Resp: Effort & Inspection: normal respiratory effort Auscultation: clear to auscultation bilaterally Cardio: Rate: regular rate Rhythm: regular rhythm Heart sounds: Murmur heart sound present systolic II/ Other: GI: Auscultation: normal bowel sounds Skin: General skin exam: normal color Neuro: Cranial nerves: Yes Equal, round and reactive pupils present Other: alert responsive normal cognition Extrem: Other: Objective Data Vital Signs Vital Signs: Vital Signs - 24 hr 05/24/22 12:00 05/24/22 14:00 05/24/22 16:48 Temperature 36.5 C Pulse Rate 85 58 L 150 H Respiratory Rate 16 Blood Pressure 117/64 Pulse Oximetry 95 Oxygen Delivery 05/24/22 16:00 05/24/22 16:15 05/24/22 17:48 Temperature Pulse Rate 103 H Respiratory Rate Blood Pressure 130/73 108/51 L Pulse Oximetry Oxygen Delivery 05/24/22 18:21 05/24/22 18:08 05/24/22 19:08 Temperature Pulse Rate 105 H 136 H Respiratory Rate Blood Pressure Pulse Oximetry Oxygen Delivery Room Air 05/24/22 20:00 05/24/22 20:00 05/24/22 21:00 Temperature 37.0 C Pulse Rate 86 131 H 82 Respiratory Rate 16 Blood Pressure 110/54 L 106/38 L Pulse Oximetry 95 Oxygen Delivery 05/24/22 20:00 05/24/22 20:30 05/24/22 22:[address] [facility]
[2022-05-25] MEDS: ENOXAPARIN 60 MG/0.6 ML SYRINGE 58 MG SUB-Q (20:19)
[2022-05-26] VITALS (16 sets, daily range): BP systolic 102–122; BP diastolic 36–53; PULSE 60–111; RESP 15–18; TEMP 36.4–36.7; O2SAT 96–100
[2022-05-26 05:14] LABS: Basophils Percent Auto 0.3 % (0.2-1.2); Eosinophils Absolute Auto 0.1 K/mm3 (0-0.3); Eosinophils Percent Auto 1.6 % (0-4.4); Hematocrit 30.1 % (37.0-47.0); Hemoglobin 9.6 g/dL (12.0-15.0); Immature Granulocyte Absolute 0.05 K/mm3 (0.00-0.031); Immature Granulocyte Percent A 0.6 % (0-0.5); Lymphocytes Absolute Auto 1.66 K/mm3 (0.9-3.2); Lymphocytes Percent Auto 18.8 % (18.3-44.2); Mean Corpuscular HGB Conc 31.9 g/dl (32-36); Mean Corpuscular Hemoglobin 28.7 pg (26-34); Mean Corpuscular Volume 89.9 fl (80-100); Mean Platelet Volume 9.9 fl (7.4-10.4); Monocytes Absolute Auto 0.9 K/mm3 (0.1-0.6); Neutrophils Absolute Auto 6.1 K/mm3 (1.3-6.7); Neutrophils Percent Auto 68.7 % (45.5-73.1); Platelet Count Result 274 k/mm3 (150-375); Red Blood Count 3.35 M/mm3 (4.2-5.4); Red Cell Distribution Width 13.7 % (11.5-14.5); White Blood Count 8.8 K/mm3 (4.5-10.0)
[2022-05-26 05:22] LABS: Alanine Aminotransferase 17 U/L (6-35); Albumin Level 3.4 g/dL (3.5-5.1); Alkaline Phosphatase 45 U/L (38-126); Anion Gap 6 mmol/L (8-16); Aspartate Amino Transferase 26 U/L (14-36); Bilirubin,Total 0.9 mg/dL (0.2-1.3); Blood Urea Nitrogen 20 mg/dL (7-17); Calcium 7.8 mg/dL (8.4-10.2); Carbon Dioxide 31 mmol/L (22-30); Chloride 91 mmol/L (98-107); Estimated CRCL calculation 29 ml/min; Estimated Glomerular Filt Rate 59; Glucose 95 mg/dL (65-110); Potassium 3.6 mmol/L (3.4-5.0); Sodium 128 mmol/L (137-145)
[2022-05-26] MEDS: POTASSIUM CHLORIDE 10 MEQ TABLET.ER PO (08:11)
[2022-05-26] MEDS: ASPIRIN 81 MG ENTERIC TABLET PO (08:11)
[2022-05-26] MEDS: CHOLECALCIFEROL 1,000 UNITS TABLET 2000 UNITS PO (08:11)
[2022-05-26] MEDS: METOPROLOL SUCCINATE EXT REL 50 MG TABCR PO (08:12)
[2022-05-26] MEDS: ENOXAPARIN 60 MG/0.6 ML SYRINGE 58 MG SUB-Q (08:12)
[2022-05-26] MEDS: FUROSEMIDE 20 MG TABLET PO (08:12)
[2022-05-26] MEDS: PANTOPRAZOLE 40 MG TABLET PO (08:19)
[2022-05-26] MEDS: lisinopriL 20 MG TABLET PO (08:19)
[2022-05-26] MEDS: FLUTICASONE/SALMETEROL 115-21 MCG INHALER 1 PUFF 2 PUFF INHALATION ×2 (09:41→20:46)
--- NOTE | 2022-05-26 11:13 | PM.PNCARD ---
Progress Note: A&P Assessment and Plan (1) SVT (supraventricular tachycardia): Code(s): I47.1 - Supraventricular tachycardia Status: Acute (2) Exertional shortness of breath: Code(s): R06.02 - Shortness of breath Status: Acute Plan 87-year-old lady with hypertension and diastolic dysfunction. She is clinically stable and euvolemic. Appears to be a reasonably good candidate for discharge from my perspective. Her electrolytes are going to be checked again this afternoon. When she does go home plans are in place for a event monitor to be started and then follow-up in the office after that takes place. She has no previous history of documented atrial arrhythmias and no history of syncope so at this time we have decided not to start additional antiarrhythmic medical treatment. Cortez Suarez MD [facility] Subjective Date/time seen: Date of service: 05/26/22 11:13 Interval history: Follow-up visit in this 87-year-old lady with: Shortness of breath evidence of some diastolic heart failure patient has impressive LVH with vigorous systolic function. She feels well this morning and denies any active complaints. Interestingly yesterday she had an episode of SVT most consistent with atypical atrial flutter but other etiologies cannot be excluded. She has not had any history of arrhythmias like this in the past and the incident was terminated with intravenous amiodarone which has been stopped. She feels well this morning was hoping to be discharged. States that her sodium level was lower today and that will be recheck this afternoon and determine her suitability for discharge. Reviewed plans in place to conduct a 30 day event monitor after discharge in the office and then follow-up after that. Exam Const: General: comfortable and no acute distress Other: Very pleasant elderly lady no distress of any kind HENMT: Mouth: Yes moist mucous membranes Eyes: Sclera: sclerae normal Pupils: Equal, round and reactive pupils present Neck: Neck: supple and no JVD Other: carotid pulses are normal Resp: Effort & Inspection: normal respiratory effort Auscultation: clear to auscultation bilaterally Cardio: Rate: regular rate and tachycardic Rhythm: regular rhythm Heart sounds: Murmur heart sound present systolic II/ Other: GI: Auscultation: normal bowel sounds Skin: General skin exam: normal color Neuro: Cranial nerves: Yes Equal, round and reactive pupils present Other: alert responsive normal cognition Extrem: Other: Objective Data Vital Signs Vital Signs: Vital Signs - 24 hr 05/25/22 12:00 05/25/22 12:08 05/25/22 12:00 Temperature 36.6 C Pulse Rate 68 73 Respiratory Rate 18 Blood Pressure 98/39 L Pulse Oximetry 99 Oxygen Delivery Room Air 05/25/22 14:00 05/25/22 16:00 05/25/22 16:00 Temperature Pulse Rate 68 66 Respiratory Rate Blood Pressure Pulse Oximetry Oxygen Delivery Room Air 05/25/22 16:00 05/25/22 18:00 05/25/22 20:00 Temperature 36.6 C 36.8 C Pulse Rate 63 83 73 Respiratory Rate 20 16 Blood Pressure 112/39 L 110/39 L Pulse Oximetry 98 97 Oxygen Delivery 05/25/22 20:55 05/25/22 19:23 05/25/22 20:00 Temperature Pulse Rate 80 80 88 Respiratory Rate 16 16 Blood Pressure Pulse Oximetry 97 Oxygen Delivery Room Air 05/25/22 22:00 05/25/22 20:00 05/25/22 23:48 Temperature 36.4 C Pulse Rate 66 66 68 Respiratory Rate 16 16 Blood Pressure 122/46 L Pulse Oximetry 97 98 Oxygen Delivery Room Air 05/26/22 00:00 05/26/22 00:00 05/26/22 02:00 Temperature Pulse Rate 77 77 71 Respiratory Rate 16 Blood Pressure Pulse Oximetry 98 Oxygen Delivery Room Air 05/26/22 04:00 05/26/22 04:00 05/26/22 04:00 Temperature 36.4 C Pulse Rate 83 77 77 Respiratory Rate 16 16 Blood Pressure 122/42 L Pulse Oximetry 100 100 Oxygen Delivery Room Air 05/26/22 06:00 05/26/22
[2022-05-26] MEDS: amLODIPine BESYLATE 5 MG TABLET 10 MG PO (12:08)
[2022-05-26 12:20] LABS: Sodium 129 mmol/L (137-145)
--- NOTE | 2022-05-26 13:55 | PM.IMPN ---
Progress Note: A&P Assessment and Plan (1) CHF (congestive heart failure): Qualifiers: Heart failure chronicity: acute Heart failure type: diastolic Qualified Code(s): I50.31 - Acute diastolic (congestive) heart failure Code(s): I50.9 - Heart failure, unspecified Status: Acute Assessment and Plan: Patient admitted from home with complaints of dyspnea on exertion, and lower extremity edema, BNP on admission 2130, and chest x-ray with bilateral pleural effusions and likely pulmonary edema. - Transthoracic echocardiogram shows grade 2 diastolic dysfunction, hyperdynamic LV systolic function with an EF greater than 70% and severe concentric left ventricular wall thickness. - patient diuresed with IV Lasix and transitioned to low-dose oral Lasix on 05/26. - continue daily weights and strict I/Os; intake and output inaccurate, and which show 2+ kg gain in 24 hours which is likely inaccurate as well. - patient does appear to be clinically improved and respiratory symptoms have resolved, lower extremity edema is improved. Will continue current plan. - Add 1500 mL fluid restriction for hyponatremia as below. - Continue Addison-inhibitor, beta-shayne, baby aspirin, and potassium supplement. - Elevate extremities for lower extremity edema. - Fall precautions - Heart healthy diet (2) SVT (supraventricular tachycardia): Code(s): I47.1 - Supraventricular tachycardia Status: Acute Assessment and Plan: patient had episode of SVT 150s on 05/24 and was treated with amiodarone drip, to which she converted to sinus rhythm / sinus arrhythmia. - Cardiology following and appreciate recommendations. - Monitor telemetry - Patient was treated with Lovenox 1 milligram/kilogram q.12 hours, started 05/24; no need for DOAC, per Cardiology. Change to dvt prophylaxis Lovenox. - Continue Toprol XL 50 mg daily. - Patient will need event monitor at discharge for further monitoring of arrhythmia. - K 3.6, give 20 mEQ PO x1 and increase to 20 mEQ daily to keep >4.0 - Check magnesium level in am. (3) Hyponatremia: Code(s): E87.1 - Hypo-osmolality and hyponatremia Status: Acute Assessment and Plan: Sodium 128 today, down from 134 yesterday. Patient has been receiving diuretics this hospital stay, but also reports drinking large amounts of water. I/Os appear inaccurate. - Repeat sodium at noon 129 and improving. - 1500 mL fluid restriction. - Patient appears euvolemic. - Repeat BMP tomorrow. Appears baseline 133-134. (4) Hyperthyroidism: Code(s): E05.90 - Thyrotoxicosis, unspecified without thyrotoxic crisis or storm Status: Chronic Assessment and Plan: - Graves disease, chronic. Not in thyrotoxic storm, previously took methimazole. - continue telemetry and metoprolol. - TSH 3.080 and stable. (5) Low vitamin D level: Code(s): R79.89 - Other specified abnormal findings of blood chemistry Status: Chronic Assessment and Plan: - Continue supplemental cholecalciferol (6) Essential (primary) hypertension: Code(s): I10 - Essential (primary) hypertension Status: Chronic Assessment and Plan: - continue home medications of lisinopril 20 mg p.o. daily, metoprolol succinate 50 mg p.o. daily and amlodipine 10 mg daily - Heart healthy diet - Stable (7) Anxiety disorder, unspecified: Qualifiers: Anxiety disorder type: generalized anxiety disorder Qualified Code(s): F41.1 - Generalized anxiety disorder Code(s): F41.9 - Anxiety disorder, unspecified Status: Chronic Assessment and Plan: - continue p.r.n. Xanax - Stable. (8) COPD (chronic obstructive pulmonary disease): Code(s): J44.9 - Chronic obstructive pulmonary disease, unspecified Status: Acute Assessment and Plan: - Not in acute exacerbation. - continue Advair maintena
[2022-05-26] MEDS: ALPRAZolam (*CRX) 0.25 MG TABLET PO (14:04)
[2022-05-26] MEDS: POTASSIUM CHLORIDE 20 MEQ TABLET PO (16:24)
[2022-05-27] VITALS (7 sets, daily range): BP systolic 111–126; BP diastolic 32–46; PULSE 61–90; RESP 12–16; TEMP 36.3–36.5; O2SAT 97–99
[2022-05-27 05:09] LABS: Anion Gap 1 mmol/L (8-16); Blood Urea Nitrogen 24 mg/dL (7-17); Calcium 7.7 mg/dL (8.4-10.2); Carbon Dioxide 34 mmol/L (22-30); Chloride 94 mmol/L (98-107); Estimated CRCL calculation 22 ml/min; Estimated Glomerular Filt Rate 42; Glucose 94 mg/dL (65-110); Magnesium 1.8 mg/dL (1.6-2.3); Potassium 4.4 mmol/L (3.4-5.0); Sodium 129 mmol/L (137-145)
--- NOTE | 2022-05-27 08:17 | PM.DS ---
DS: Admitting Diagnosis Discharge Date 05/27/2022 1003 Admitting Diagnosis Dyspnea on exertion Bilateral lower extremity edema DS: Discharge Diagnosis Discharge Diagnosis (1) CHF (congestive heart failure): Qualifiers: Heart failure chronicity: acute Heart failure type: diastolic Qualified Code(s): I50.31 - Acute diastolic (congestive) heart failure Code(s): I50.9 - Heart failure, unspecified Status: Acute Assessment and Plan: Patient admitted from home with complaints of dyspnea on exertion, and lower extremity edema, BNP on admission 2130, and chest x-ray with bilateral pleural effusions and likely pulmonary edema. - Cardiology was consulted for recommendations and assistance with management. - Transthoracic echocardiogram on 05/24/22 showed grade 2 diastolic dysfunction, hyperdynamic LV systolic function with an EF greater than 70% and severe concentric left ventricular wall thickness. - patient was diuresed with IV Lasix 40 mg BID from 05/23 to 05/25 and transitioned to low-dose oral Lasix on 05/26. - daily weights and strict I/Os were initiated, however, the appeared inaccurate, and weight gain showing 2+ kg gain in 24 hours which is likely inaccurate as well as she improved clinically with respiratory symptoms resolved and lower extremity edema improved. - 1500 mL fluid restriction for hyponatremia as below. - She was continue lisinopril, metoprolol, baby aspirin, and potassium supplement during her hospital stay. - Elevate extremities for lower extremity edema. - Fall precautions - Heart healthy diet (2) SVT (supraventricular tachycardia): Code(s): I47.1 - Supraventricular tachycardia Status: Acute Assessment and Plan: Patient had an episode of SVT 150s on 05/24 and was treated with amiodarone drip, to which she converted to sinus rhythm / sinus arrhythmia. - Cardiology was consulted and assisted with management. Amiodarone drip was stopped when she converted and she was maintained on her home dose of metoprolol XL. - She remained SR/SA versus SR with frequent PACs during her hospital stay. - Patient was treated with Lovenox 1 milligram/kilogram q.12 hours starting 05/24 due arrhythmia; however, this was stopped after she converted and maintained sinus rhythm. Per Cardiology, no need for DOAC or other anticoagulation was needed. - Event monitor was recommended and applied at discharge for further monitoring of arrhythmia. - Electrolytes were replaced: K 3.6, give 20 mEQ PO x1 and increase to 20 mEQ daily to keep >4.0 - magnesium level was stable. (3) Hyponatremia: Code(s): E87.1 - Hypo-osmolality and hyponatremia Status: Acute Assessment and Plan: Sodium 128 on 05/26, down from 134 the preceding day and 131 on admission. The patient had been receiving diuretics during her hospital stay as above, but also reported drinking large amounts of water because she was taking diuretics. Repeat sodium was 129 and maintained this level the following day after initiation of 1500 mL fluid restriction. She was asymptomatic. - I/Os appeared inaccurate. The patient, however, appeared euvolemic. - 1500 mL fluid restriction initiated and recommended to continue for 1 week at discharge. - She was counseled on no added salt diet upon discharge, but otherwise no restriction with well-balanced diet. - Repeat BMP was ordered for 5-7 days and should be addressed by PCP at follow-up. (4) Hyperthyroidism: Code(s): E05.90 - Thyrotoxicosis, unspecified without thyrotoxic crisis or storm Status: Chronic Assessment and Plan: - Graves disease, chronic. Not in thyrotoxic storm, previously took methimazole. - One episode of SVT as above. Metoprolol was continued. - TSH 3.080 and stable. - Methimazole was resumed at maintenance dose at discharge. (5) Low vitamin D level: Code(s): R79.89 - Other specified
[2022-05-27] MEDS: CHOLECALCIFEROL 1,000 UNITS TABLET 2000 UNITS PO (08:30)
[2022-05-27] MEDS: METOPROLOL SUCCINATE EXT REL 50 MG TABCR PO (08:32)
[2022-05-27] MEDS: lisinopriL 20 MG TABLET PO (08:32)
[2022-05-27] MEDS: amLODIPine BESYLATE 5 MG TABLET 10 MG PO (08:32)
[2022-05-27] MEDS: methiMAzole 10 MG TAB PO (08:32)
[2022-05-27] MEDS: ASPIRIN 81 MG ENTERIC TABLET PO (08:32)
[2022-05-27] MEDS: PANTOPRAZOLE 40 MG TABLET PO (08:33)
[2022-05-27] MEDS: FLUTICASONE/SALMETEROL 115-21 MCG INHALER 1 PUFF 2 PUFF INHALATION (08:38)
--- NOTE | 2022-05-27 10:27 | PC.NURSE ---
Discharged home- instructions discussed with pt- and pt verbalized understanding.pt accompanied to [facility] office via w/c with an order to have event monitor applied
== END 2022-05-27 10:27 | disposition home or self-care (01) | DRG 291 ==
LOC: ANHED 14:04 → ANH2MED 18:38 → ANHIMU 05-24 18:06
PROVIDERS: Nurse Practitioner; Nurse Practitioner Adult Health; Admitting Provider Chiropractor; Emergency Provider Emergency Medicine; PCP Family Medicine; Visit Provider Nurse Practitioner Family
DX: I11.0 Hypertensive heart disease with heart failure (principal); I50.33 Acute on chronic diastolic (congestive) heart failure; I47.1 Supraventricular tachycardia; E87.1 Hypo-osmolality and hyponatremia; I34.0 Nonrheumatic mitral (valve) insufficiency; F41.1 Generalized anxiety disorder; J43.8 Other emphysema; R01.1 Cardiac murmur, unspecified; K21.9 Gastro-esophageal reflux disease without esophagitis; E05.00 Thyrotoxicosis with diffuse goiter without thyrotoxic crisis or storm; E55.9 Vitamin D deficiency, unspecified; M47.896 Other spondylosis, lumbar region; M85.80 Other specified disorders of bone density and structure, unspecified site; L40.9 Psoriasis, unspecified; R09.89 Other specified symptoms and signs involving the circulatory and respiratory systems; Z20.822 Contact with and (suspected) exposure to COVID-19; Z79.82 Long term (current) use of aspirin; Z79.899 Other long term (current) drug therapy
CPT/HCPCS: 36415; 71046; 80048; 80053; 83735; 83880; 84295; 84443; 85025; 93005; 93306; 94640; 96365; 96366; 96372; 96374; 96376; 97161; 97165; 99285; A9270; C9803; G0378; J0282; J1650; J1940; J7040; U0003; U0005

== ENCOUNTER → 2023-03-15 12:19 | Outpatient (CLI) | payer MEDICARE, SELFPAY ==
--- NOTE | ~2023-03-15 | XR_ITS ---
Clinical Indication: Bronchitis PA and lateral views of the chest: Comparison: 05/23/2022 Findings: There is mild diffuse interstitial prominence. There is mild blunting of the bilateral cost ophrenic angles. Cardiomediastinal silhouette is within normal limits. Bones and soft tissues are un remarkable. Impression: Interstitial pulmonary edema versus chronic interstitial disease. Suspected small bilateral pleural effusions. Reviewed, dictated and finalized at location . Impression: Interstitial pulmonary edema versus chronic interstitial disease. Suspected small bilateral pleural effusions.
== END ==
PROVIDERS: PCP Family Medicine; Visit Provider Family Medicine
DX: J40 Bronchitis, not specified as acute or chronic (principal); J90 Pleural effusion, not elsewhere classified
CPT/HCPCS: 71046

== ENCOUNTER 2023-04-22 09:58 | Outpatient (CLI) | payer MEDICARE, SELFPAY ==
--- NOTE | ~2023-04-22 | XR_ITS ---
EXAMINATION: XR chest 2V 04/22/2023 11:19 INDICATION: Bronchitis PROCEDURE: 2 view chest COMPARISON: Comparison to multiple prior studies sequentially, with oldest reviewed study dated 11/22. FINDINGS: The lungs are clear. The cardiomediastinal silhouette is within normal limits. There are no pleural effusions. There is no pneumothorax suspected. There is dextroscoliosis. IMPRESSION: 1: NO ACUTE CARDIOPULMONARY DISEASE. Reviewed, dictated and finalized at location []
--- NOTE | 2023-04-26 06:58 | WPDPFTINT ---
PFT Procedure Performed PFT Procedure Performed Spirometry with Pre/Post Bronchodilator Plethysmography (Lung Vol) Diffusing Cap (DLCO) Flow Vol Loop PFT Interpretation DOS: 04/22/2023 REQUESTING: Oliverio Nelson MD REASON FOR TESTING: Interstitial lung disease PULMONARY FUNCTION TESTS Results are reliable and reproducible. Spirometry: The pre-bronchodilator FEV1 is 1.09 L, 69% predicted, mildly decreased. The pre-bronchodilator FVC is 1.60 L, 76%, normal. FEV1/FVC ratio is 68%, normal. After bronchodilator, there is a 5% increase in the FEV1, 1.1 5 L, 73%, normal. There is a 3% increase in the FVC, 1.66 L, 79%, normal. These are not statistically significant increases. Post bronchodilator FEV1/FVC is 70%, normal. There [id number]% is low 47% redicted, 0.60 L, and remains low at 0.69 L, 54% predicted, a 15% increase after bronchodilator administration. Lung volumes: Total lung capacity is 4.35 L, 94%, normal. Residual volume is 2.53 L, 105%, normal. RV/TLC is 58%, within the normal range. Airway resistance is 3.70, 233%, elevated. Diffusion: DLCO 11.2, 65%, low end of normal. DLCO /VA is 3.68, 89%, normal. Flow volume loop: The flow volume loop shows overall diminished size which suggest a restrictive pattern. IMPRESSION: This study shows a decrease in FEV1 which normalizes with bronchodilator administration so a mild obstructive pattern which is severe in the small airways, air trapping reflected in an increase in RV/TLC ratio with normal RV, borderline low diffusion that corrects for alveolar volume. Lack of response to bronchodilator should not preclude use if clinically indicated. This PFT could be seen in interstitial lung disease with a trend toward decrease TLC and decrease in DLCO. Compared to a study 12/21/2016, the FEV1 has dropped more than expected as the FEV1 was 1.31 L, 84%; FVC was 1.92 L, 82%, still with borderline low FEV1/FVC = 69% predicted, no change with bronchodilator, normal TLC 115%, air trapping with RV 164% which is now 105% normal, high RV/TLC 61%, with normal diffusion. DLCO was 80%, DLCO/VA was 139%. There is a trend towards worsening diffusion. Jacquelyn Winkler MD
== END 2023-04-22 09:59 | disposition home or self-care (01) ==
PROVIDERS: PCP Family Medicine; Visit Provider Family Medicine
DX: J84.9 Interstitial pulmonary disease, unspecified (principal)
CPT/HCPCS: 71046; 94060; 94726; 94729

== ENCOUNTER 2024-09-17 12:10 | Outpatient (CLI) | payer MEDICARE, SELFPAY ==
--- NOTE | ~2024-09-17 | DEXA_ITS ---
Bone Density Report Name: JINNY LANDAVERDE Age: 89 Sex: Female Ethnicity: White Date of : 1935 Indication: osteopenia; height loss; history of glucocorticoids; prior fracture; cancer; Referring Provider: JOHN HENLEY Study: Bone densitometry was performed. Exam Date: September 17, 2024 Accession number: [id number] Bone Density: Region BMD T-score Z-score Classification AP Spine(L1-L4) 0.935 -1.0 1.9 Normal Femoral Neck (Left) 0.664 -1.7 0.9 Osteopenia Total Hip (Left) 0.711 -1.9 0.4 Osteopenia Femoral Neck (Right) 0.624 -2.0 0.5 Osteopenia Total Hip (Right) 0.612 -2.7 -0.4 Osteoporosis Total Hip Mean 0.661 -2.3 0.0 Osteopenia World Health Organization criteria for BMD impression classify patients as: Normal (T-score at or above -1.0), Osteopenia (T-score between -1.0 and -2.5), or Osteoporosis (T-score at or below -2.5). 10-year Fracture Risk: FRAX not reported because: Some T-score for Spine Total or Hip Total or Femoral Neck at or below -2.5 Previous Exams: Region Exam Age BMD T-score BMD Change BMD Change Date g/cm2 vs Baseline vs Previous AP Spine (L1-L4) 09/17/2024 89 0.935 -1.0 -0.013 (-1.4%) -0.013 (-1.4%) 09/07/2016 81 0.949 -0.9 Total Hip(Left) 09/17/2024 89 0.711 -1.9 -0.040 (-5.3%) 0.012 (1.7%)# 04/09/2022 87 0.699 -2.0 -0.051 (-6.9%) -0.051 (-6.9%) 09/07/2016 81 0.751 -1.6 Total Hip(Right) 09/17/2024 89 0.612 -2.7 -0.065 (-9.6%) -0.037 (-5.7%) 04/09/2022 87 0.648 -2.4 -0.028 (-4.2%) -0.028 (-4.2%) 09/07/2016 81 0.676 -2.2 *Denotes significance at 95% confidence level, LSC for AP Spine = 0.022 g/cm2, LSC for Total Hip = 0.027 g/cm2 # Denotes dissimilar scan types or analysis methods Clinical Information Provided by Patient: Has had a low trauma fracture Has taken Glucocorticoids Has used the following medications: Vitamin D, Calcium Has the following medical conditions: Cancer Patient maximum height was 65 Menopause Age: 48 No regular weight bearing exercise Drinks caffeinated beverages Onset of menses at age 13 Number of children 1 Impression: The patient has established osteoporosis, based on the Right Total Hip T-score and the existence of a prior fracture. The patient has risk factors, including: previous fracture, history of glucocorticoid therapy. No significant bone loss was observed. Discussion: HIGH RISK OF FRACTURE. BONE DENSITY IS UNDESIRABLY LOW AT ONE OR MORE SKELETAL SITES, CONSISTENT WITH POSTMENOPAUSAL OSTEOPOROSIS. This patient's lowest T-score, in a patient who has previously fractured, meets the World Health Organization's (WHO) criteria for severe osteoporosis. In untreated patients, the risk of osteoporotic fracture increases approximately two-fold for each 1.0 SD decrease in T-score. Low bone density is not the only risk factor for fracture; also consider factors such as patient's age, frailty or poor health, risk of falling, risk of injury, previous osteoporotic fracture, family history of osteoporosis, cigarette smoking, low body weight, etc. Not everyone with low bone mineral density has osteoporosis; osteomalacia and other metabolic bone disorders should also be considered. Patients who have osteoporosis should be evaluated for specific diseases and conditions (secondary causes) that may cause or contribute to bone loss. The [place] Association of Clinical Endocrinologists (AACE) and National Osteoporosis Foundation (NOF) recommend pharmacologic intervention for all postmenopausal women whose T-score is in this range. The patient should follow a healthful lifestyle (good nutrition with adequate calcium and vitamin D, and appropriate weight-bearing exercise). Follow-Up: Consider a repeat BMD and Vertebral Fracture Assessment (VFA) exam in 2 years or sooner if medically necessary, to reassess this patient's status. Reported by: MELANIE on 09/17/2024 12:48:00 PM. Reviewed, dictated and finalized at location AMiriam FELDER
--- NOTE | ~2024-09-17 | XR_ITS ---
3 VIEWS LUMBAR SPINE Ordering provider: Elisha Wing MD History: . evaluate compression fracture . Comparison: None. FINDINGS: VERTEBRAL BODIES:Dextroscoliosis. No visible fracture or subluxation. Degenerative changes of the sp ine. DISK SPACES: Narrowing of the disc spaces T12-L1, L1-L2, L2-L3, L4-L5 and L5-S1 is noted. Facet joint disease at the level of L4-L5 and L5-S1. SOFT TISSUES: Atherosclerotic changes of the aorta. Fibroid calcification in the left side. IMPRESSION: No acute osseous abnormality lumbar spine. Reviewed, dictated and finalized at location A. RVATION CLERK
== END 2024-09-17 12:11 | disposition home or self-care (01) ==
LOC: ANHIMG 12:17
PROVIDERS: PCP Family Medicine; Visit Provider Internal Medicine Endocrinology, Diabetes & Metabolism
DX: M85.89 Other specified disorders of bone density and structure, multiple sites (principal); E05.00 Thyrotoxicosis with diffuse goiter without thyrotoxic crisis or storm; R79.89 Other specified abnormal findings of blood chemistry; Z91.89 Other specified personal risk factors, not elsewhere classified
CPT/HCPCS: 72100; 77080

== ENCOUNTER 2025-01-20 13:33 | Inpatient (IN) | payer MEDICARE, SELFPAY ==
[2025-01-20] VITALS (16 sets, daily range): BP systolic 126–188; BP diastolic 63–99; PULSE 84–101; RESP 17–24; TEMP 36.2–36.6; O2SAT 92–96; BMI 26.9
--- NOTE | ~2025-01-20 | CT_ITS ---
EXAMINATION: CTA chest PE protocol DATE: 01/20/2025 15:58 INDICATION: sob, influenza and covid +, pericardial effusion? TECHNIQUE: Computed tomography angiography (CTA) of the chest was performed with 100 mL Omnipaque-350 intravenous contrast timed to evaluate the pulmonary arteries. Coronal maximum intensity projection 3D-reconstructions were created by the technologist. The dose-length product (DLP) was 135.76 mGy-cm. Automated exposure control and iterative reconstruction technique were employed. COMPARISON: X-ray chest, same date. FINDINGS: Lung parenchyma and airways: Septal thickening. Mild bronchial wall thickening. Mild patchy scattered groundglass opacities. Tubular opacities in the peripheral lingula. Mild peripheral and basilar erlinda ycombing. Minimal airway debris in a left lower lobe bronchus. Pleura: Unremarkable. Thoracic inlet, axillae and chest wall: Thyroid goiter. Mild body wall edema. Thoracic aorta: No significant dilation. No dissection. Moderate atherosclerotic calcification. Mediastinum: Patulous debris-filled esophagus. Dilated central pulmonary arteries as can be seen with pulmonary arterial hypertension. Heart and pericardium: Cardiomegaly. No significant pleural effusion. Aortic valve and mitral annulus calcification. Coronary artery calcifications: Mild. Upper abdomen: Large hiatal hernia. Bones: No acute osseous finding. Pulmonary arteries: Study quality: Adequate. No pulmonary emboli detected. IMPRESSION: No CT evidence of acute pulmonary embolus. Mild interstitial edema versus respiratory bronchiolitis. Lingular tubular opacities may represent mucoid impaction or infection such as ABPA. 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 No large pericardial effusion, prior radiograph findings related to cardiomegaly. Large hiatal hernia with a dilated debris-filled esophagus may be related to esophageal dysmotility o r prior pull-through procedure. Thyroid goiter. Reviewed, dictated and finalized at location K. IMPRESSION: No CT evidence of acute pulmonary embolus. Mild interstitial edema versus respiratory bronchiolitis. Lingular tubular opacities may represent mucoid impaction or infection such as ABPA. 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 No large pericardial effusion, prior radiograph findings related to cardiomegal y. Large hiatal hernia with a dilated debris-filled esophagus may be related to es ophageal dysmotility or prior pull-through procedure. Thyroid goiter.
--- NOTE | ~2025-01-20 | XR_ITS ---
EXAMINATION: XR chest 2V Exam Date/Time: 01/20/2025 14:40 CDT HISTORY: SHORT OF BREATH Comparison: 04/22/2023. RESULT: Lines, tubes, and devices: None. Lungs and pleura: No focal consolidation, pleural effusion, or pneumothorax. Senescent/emphysematou s change. Cardiomediastinal silhouette: Marked, globular, somewhat water bottle shaped heart enlargement. Mitr al annulus calcification. Other: No acute osseous or upper abdominal finding. IMPRESSION: Globular heart enlargement, may reflect cardiomegaly and/or pericardial effusion. Reviewed, dictated and finalized at location K. IMPRESSION: Globular heart enlargement, may reflect cardiomegaly and/or pericardial effusio nMiriam
--- OUTSIDE RECORDS SUMMARY | 2025-01-20 13:35 | XMS_ITS | Clinical Summary ---
Author Organization [facility] Address [facility] [place] [address] Care Team Providers Care Training Engineer Name Role Phone Oliverio Nelson MD Primary Care Provider + [phone] Allergies Active Allergy Reactions Criticality Noted Date Comments Alendronate Stomach upset Low 06/25/2022 Medications lisinopriL (PRINIVIL,ZESTR IL) 20 mg tablet Take 1 tablet (20 mg total) by mouth daily 0 Active OMEPRAZOLE ORAL Take by mouth daily 0 Active cholecalciferol (VITAMIN D-3) 25 mcg (1,000 unit) tablet Take 2 tablets (2,000 Units total) by mouth daily Active docusate sodium (COLACE) 100 mg capsuleIndicati ons:constipatio n Take 1 capsule (100 mg total) by mouth nightly Active melatonin tablet Take 1 tablet (3 mg total) by mouth Active ALPRAZolam (XANAX) 0.25 mg tablet Take 1 tablet (0.25 mg total) by mouth nightly as needed for anxiety Active Symbicort 160-4.5 mcg/actuation inhaler 2 puffs every 12 (twelve) hours 1 Active methIMAzole (TAPAZOLE) 10 mg tablet 1 tablet (10 mg total) 1 Active Senna Laxative 8.6 mg tablet TAKE 2 TABLETS BY MOUTH DAILY NEEDED FOR CONSTIPATION 2 Active ferrous sulfate 325 mg (65 mg of elemental iron) tablet Take 1 tablet (325 mg total) by mouth daily 2 Active calcium carbonate (OS-GLADIS) 1,500 mg (600 mg elemental) tablet Take 1 tablet (1,500 mg total) by mouth daily Active albuterol HFA (PROVENTIL HFA,VENTOLIN HFA,PROAIR HFA) 90 mcg/actuation inhaler Inhale 2 puffs every 6 (six) hours as needed for wheezing Active clobetasoL (TEMOVATE) 0.05 % ointment PLEASE SEE ATTACHED FOR DETAILED DIRECTIONS 4 Active apixaban (Eliquis) 5 mg tablet TAKE 1 TABLET BY MOUTH TWICE A DAY 180 tablet 3 4 Active potassium chloride ER 10 mEq CR tabletIndicatio ns:Chronic diastolic congestive heart failure (HCC) TAKE 1 TABLET BY MOUTH EVERY DAY 90 tablet 3 4 Active furosemide (LASIX) 20 mg tabletIndicatio ns:Chronic diastolic congestive heart failure (HCC) TAKE 1 TABLET BY MOUTH EVERY DAY 90 tablet 3 4 Active metoprolol XL (TOPROL-XL) 50 mg extended release tablet TAKE 1 TABLET BY MOUTH EVERY DAY 90 tablet 3 4 Active Active Problems Problem Noted Date Diagnosed Date Persistent atrial fibrillation 07/26/2023 Other thrombophilia 07/26/2023 LBBB (left bundle branch block) 09/09/2020 PAC (premature atrial contraction) 09/09/2020 PVC (premature ventricular contraction) 09/09/20 20 Medical History Medical History Date Comments Hypertension Arrhythmia Family History Medical History Relation Name Comments Cancer Brother Cancer Father Cancer Mother Cancer Sister Heart disease Sister Relation Name Status Comments Brother Father Mother Sister Social History Tobacco Use Types Packs/Day Years Used Date Smoking Tobacco: Never Smokeless Tobacco: Never Tobacco Cessation:Counseling Given: Not Answered Alcohol Use Standard Drinks/Week Comments Never 0 (1 standard drink = 0.6 oz pur e alcohol) AUDIT-C Answer Date Recorded Q1: How often do you have a drink containing alc ohol? Never 09/09/2020 Average Number of Drinks Not on file 020 Frequency of Binge Drinking Not on file 01/2020 Comments Unknown Sex and Gender Information Value Date Recorded Sex Assigned at Not on file Legal Sex Female 9:17 PM TECHNICAL SERVICES SPECIALIST Gender Identity Female 09/23/2020 8:47 AM TECHNICAL SERVICES SPECIALIST Sexual Orientation Straight 09/23/2020 8: 49 AM TECHNICAL SERVICES SPECIALIST Obstetrics History Last Filed Vital Signs Vital Sign Reading Time Taken Comments Blood Pressure 120/84 09/20/2024 3:16 PM TECHNICAL SERVICES SPECIALIST Pulse 71 09/20/2024 3:16 PM TECHNICAL SERVICES SPECIALIST Temperature 36.5 C (97.7 F) 11/10/2020 2:04 PM TECHNICAL SERVICES SPECIALIST Respiratory Rate 15 09/09/2020 2:01 PM TECHNICAL SERVICES SPECIALIST Oxygen Saturation 99% 09/20/2024 3:16 PM TECHNICAL SERVICES SPECIALIST Inhaled Oxygen Concentration - - Weight 62.7 kg (138 lb 4.8 oz) 09/20/2024 3:16 P M TECHNICAL SERVICES SPECIALIST Height 157.5 cm (5' 2 ) 09/20/2024 3:16 PM TECHNICAL SERVICES SPECIALIST Body Mass Index 25.3 09/20/2024 3:16 PM TECHNICAL SERVICES SPECIALIST Plan of Treatment Health Maintenance Due Date Last Done Comments Depression Screening 1935 DTaP/Tdap/Td Vaccine (1 - Tdap) 1946 Hepatitis B Screening 1953 Well Visit 65+ 2000 Pneumococcal vaccine 65+ (2 of 2 - PCV) 11/21/2019 0 11/21/2018 Fall Risk Assessment 09/09/2021 09/09/2020 Influenza Vaccine (#1) 2024 Zoster Vaccine Completed 11/22/2019, 09/21/2019 Insurance [employer]NA MEDICARE GOLD AETNA MEDICARE GOLD Care Teams Training Engineer Relationship Specialty Start Date End Date Oliverio Nelson MD PCP - General Family Medicine 08/01/20
--- OUTSIDE RECORDS SUMMARY | 2025-01-20 13:35 | XMS_ITS | Referral Summary ---
Author Organization [facility] Address [facility] [place] [address] Care Team Providers Care Manufacturing Coordinator Name Role Phone Oliverio Nelson MD Primary Care Provider + [phone] Allergies Active Allergy Reactions Criticality Noted Date [...] 09/09/2020 PVC (premature ventricular contraction) 09/09/20 20 Social History Tobacco Use Types Packs/Day Years [...] on file Legal Sex Female 9:17 PM BODY CARE MANAGER Gender Identity Female 09/23/2020 8:47 AM BODY CARE MANAGER Sexual Orientation Straight 09/23/2020 8: 49 AM BODY CARE MANAGER Last Filed Vital Signs Vital Sign Reading Time Taken Comments Blood Pressure 120/84 09/20/2024 3:16 PM BODY CARE MANAGER Pulse 71 09/20/2024 3:16 PM BODY CARE MANAGER Temperature 36.5 C (97.7 F) 11/10/2020 2:04 PM BODY CARE MANAGER Respiratory Rate 15 09/09/2020 2:01 PM BODY CARE MANAGER Oxygen Saturation 99% 09/20/2024 3:16 PM BODY CARE MANAGER Inhaled Oxygen Concentration - - Weight 62.7 kg (138 lb 4.8 oz) 09/20/2024 3:16 P M BODY CARE MANAGER Height 157.5 cm (5' 2 ) 09/20/2024 3:16 PM BODY CARE MANAGER Body Mass Index 25.3 09/20/2024 3:16 PM BODY CARE MANAGER Plan of Treatment Not on file Insurance MEDICARE [facility] MEDICARE [facility] Care Teams Manufacturing Coordinator Relationship Specialty Start Date End Date Oliverio Nelson MD PCP - General Family Medicine 08/01/20
--- OUTSIDE RECORDS SUMMARY | 2025-01-20 13:35 | XMS_ITS | Continuity of Care Document ---
Author Organization [facility] Address [address] [place] [address] [place] [address] Phone Care Team Providers Care Employment Supervisor Name Role Phone [facility] Unavailable Unavail able You Storm Unavailable Unavailable Advance Directives Directive Yes / No Effective Date File Name No Information Encounters Encounter Description Practice Location Reason(s) For Visit Diagnoses Date Provider Providers Copied on Encounter [facility], [id number] [place] [address] [address], [place], [place], [id number], [place] tel:[phone] SEC [facility] No Information 1-200 0 [facility] [address] [facility], [address], [place], [place], [address] , [place]. tel:[phone] Consulting Provider: You Storm, [address] [facility], [place], [address]. tel:[phone] Family History Family Member Type Diagnosis Age At Onset No Information Payers Payer name Insurance type Covered alliance party ID Authoriza tion(s) No Information Social History Type Description Quantity Date Captured Comments Sex Female Smoking Status No Information Chief Complaint And Reason For Visit No Information Reason For Referral Reason For Referral No Information History Of Present Illness Encounter Date Complaint History Of Prese nt Illness No Information Functional Status Date Functional Assessmen t No Information Instructions Date Instruction Additional Infor mation No Information Assessments Type Assessment Date No Information Patient Care Teams Name Effective Dates (start - stop) Status Members No Information
--- NOTE | 2025-01-20 13:41 | ECG_ITS ---
Test Date: 2025-01-20 13:48:34 Measurements Intervals [place] Rate: 84 P: 0 AR: 0 QRS: -65 QRSD: 139 T: 86 QT: 421 QTc: 498 Interpretive Statements ATRIAL FIBRILLATION MARKED LEFT AXIS DEVIATION [QRS AXIS < -30] INTRAVENTRICULAR CONDUCTION DELAY [130+ ms QRS DURATION] POSSIBLE ANTERIOR MYOCARDIAL INFARCTION , OF INDETERMINATE AGE [30 ms Q WAVE IN V3/V4, OR R < 0.2 mV IN V4] No previous ECG available for comparison Electronically Signed On 01-21-2025 15:07:00 CDT by Matt Colunga M.D.
[2025-01-20 13:56] LABS: Basophils Percent Auto 0.3 % (0.2-1.2); Eosinophils Percent Auto 0.2 % (0-4.4); Hematocrit 39.6 % (37.0-47.0); Immature Granulocyte Absolute 0.06 K/mm3 (0.00-0.031); Immature Granulocyte Percent A 0.6 % (0-0.5); Lymphocytes Absolute Auto 1.53 K/mm3 (0.9-3.2); Lymphocytes Percent Auto 14.2 % (18.3-44.2); Mean Corpuscular HGB Conc 30.3 g/dl (32-36); Mean Corpuscular Hemoglobin 25.9 pg (26-34); Mean Corpuscular Volume 85.3 fl (80-100); Mean Platelet Volume 10.3 fl (7.4-10.4); Monocytes Absolute Auto 0.9 K/mm3 (0.1-0.6); Monocytes Percent Auto 8.3 % (2.6-8.5); Neutrophils Absolute Auto 8.2 K/mm3 (1.3-6.7); Neutrophils Percent Auto 76.4 % (45.5-73.1); Platelet Count Result 252 k/mm3 (150-375); Red Blood Count 4.64 M/mm3 (4.2-5.4); Red Cell Distribution Width 15.5 % (11.5-14.5); White Blood Count 10.8 K/mm3 (4.5-10.0)
[2025-01-20 14:06] LABS: Alanine Aminotransferase 21 U/L (6-35); Albumin Level 4.3 g/dL (3.5-5.1); Alkaline Phosphatase 62 U/L (38-126); Anion Gap 11 mmol/L (4-12); Aspartate Amino Transferase 33 U/L (14-36); Bilirubin,Total 1.4 mg/dL (0.2-1.3); Blood Urea Nitrogen 15 mg/dL (7-17); Calcium 8.7 mg/dL (8.4-10.2); Carbon Dioxide 32 mmol/L (22-30); Chloride 88 mmol/L (98-107); Estimated CRCL calculation 31 ml/min; Estimated Glomerular Filt Rate 57; Glucose 128 mg/dL (65-110); Potassium 3.3 mmol/L (3.4-5.0); Sodium 131 mmol/L (137-145)
[2025-01-20 14:07] LABS: INR 1.8; Prothrombin Time 21.1 Seconds (11.1-14.7)
[2025-01-20 14:09] LABS: Partial Thromboplastin Time 51.4 Seconds (22.3-36.8)
--- OUTSIDE RECORDS SUMMARY | 2025-01-20 14:09 | XMS_ITS | Continuity of Care Document ---
Author Organization [facility] Address [address] [place] [address] [place] [address] Phone Care Team Providers Care Endoscopy Technican Name Role Phone [facility] Unavailable Unavail able You Storm Unavailable Unavailable Advance Directives Directive Yes / No Effective Date File Name No Information Encounters Encounter Description Practice Location Reason(s) For Visit Diagnoses Date Provider Providers Copied on Encounter [facility], [id number] [place] [address] [address], [place], [place], [id number], [place] tel:[phone] SEC [facility] No Information 1-200 0 [facility] [address] [facility], [address], [place], [place], [id number] , [place]. tel:[phone] Consulting Provider: You Storm, [address] [facility], [place], [address]. tel:[phone] Family History Family Member Type Diagnosis Age At Onset No Information Payers Payer name Insurance type Covered libertarian ID Authoriza tion(s) No Information Social History [...]
--- OUTSIDE RECORDS SUMMARY | 2025-01-20 14:09 | XMS_ITS | Referral Summary ---
Author Organization [facility] Address [facility] [place] [address] Care Team Providers Care Sandblaster Paint Sprayer Name Role Phone Oliverio Nelson MD Primary Care Provider + [phone] Allergies Active Allergy Reactions Criticality Noted Date [...] on file Legal Sex Female 9:17 PM DIRECTOR OF ACCOUNTING Gender Identity Female 09/23/2020 8:47 AM DIRECTOR OF ACCOUNTING Sexual Orientation Straight 09/23/2020 8: 49 AM DIRECTOR OF ACCOUNTING Last Filed Vital Signs Vital Sign Reading Time Taken Comments Blood Pressure 120/84 09/20/2024 3:16 PM DIRECTOR OF ACCOUNTING Pulse 71 09/20/2024 3:16 PM DIRECTOR OF ACCOUNTING Temperature 36.5 C (97.7 F) 11/10/2020 2:04 PM DIRECTOR OF ACCOUNTING Respiratory Rate 15 09/09/2020 2:01 PM DIRECTOR OF ACCOUNTING Oxygen Saturation 99% 09/20/2024 3:16 PM DIRECTOR OF ACCOUNTING Inhaled Oxygen Concentration - - Weight 62.7 kg (138 lb 4.8 oz) 09/20/2024 3:16 P M DIRECTOR OF ACCOUNTING Height 157.5 cm (5' 2 ) 09/20/2024 3:16 PM DIRECTOR OF ACCOUNTING Body Mass Index 25.3 09/20/2024 3:16 PM DIRECTOR OF ACCOUNTING Plan of Treatment Not on file Insurance MEDICARE [facility] MEDICARE [facility] Care Teams Sandblaster Paint Sprayer Relationship Specialty Start Date End Date Oliverio Nelson MD PCP - General Family Medicine 08/01/20
--- OUTSIDE RECORDS SUMMARY | 2025-01-20 14:09 | XMS_ITS | Clinical Summary ---
Author Organization [facility] Address [facility] [place] [address] Care Team Providers Care Salesforce Administrator Name Role Phone Oliverio Nelson MD Primary Care Provider + [phone] Allergies Active Allergy Reactions Criticality Noted Date [...] on file Legal Sex Female 9:17 PM GOVERNMENT AFFAIRS SPECIALIST Gender Identity Female 09/23/2020 8:47 AM GOVERNMENT AFFAIRS SPECIALIST Sexual Orientation Straight 09/23/2020 8: 49 AM GOVERNMENT AFFAIRS SPECIALIST Obstetrics History Last Filed Vital Signs Vital Sign Reading Time Taken Comments Blood Pressure 120/84 09/20/2024 3:16 PM GOVERNMENT AFFAIRS SPECIALIST Pulse 71 09/20/2024 3:16 PM GOVERNMENT AFFAIRS SPECIALIST Temperature 36.5 C (97.7 F) 11/10/2020 2:04 PM GOVERNMENT AFFAIRS SPECIALIST Respiratory Rate 15 09/09/2020 2:01 PM GOVERNMENT AFFAIRS SPECIALIST Oxygen Saturation 99% 09/20/2024 3:16 PM GOVERNMENT AFFAIRS SPECIALIST Inhaled Oxygen Concentration - - Weight 62.7 kg (138 lb 4.8 oz) 09/20/2024 3:16 P M GOVERNMENT AFFAIRS SPECIALIST Height 157.5 cm (5' 2 ) 09/20/2024 3:16 PM GOVERNMENT AFFAIRS SPECIALIST Body Mass Index 25.3 09/20/2024 3:16 PM GOVERNMENT AFFAIRS SPECIALIST Plan of Treatment Health Maintenance Due Date Last Done Comments Depression Screening 1935 DTaP/Tdap/Td Vaccine (1 - Tdap) 1946 Hepatitis B Screening 1953 Well Visit 65+ 2000 Pneumococcal vaccine 65+ (2 of 2 - PCV) 11/21/2019 0 11/21/2018 Fall Risk Assessment 09/09/2021 09/09/2020 Influenza Vaccine (#1) 2024 Zoster Vaccine Completed 11/22/2019, 09/21/2019 Insurance AETNA MEDICARE GOLD AETNA MEDICARE GOLD Care Teams Salesforce Administrator Relationship Specialty Start Date End Date Oliverio Nelson MD PCP - General Family Medicine 08/01/20
[2025-01-20 14:18] LABS: NT Pro B Type Natriuretic Pept 18300 pg/mL (19.9-100); Troponin I 0.034 ng/mL (0.000-0.034)
[2025-01-20 14:23] LABS: Magnesium 1.5 mg/dL (1.6-2.3)
--- NOTE | 2025-01-20 14:40 | ED_ITS ---
HPI - SOB/Dyspnea General Chief Complaint: Shortness of Breath/Dyspnea <Agata Garcia PA-C - Last Filed: 01/20/25 18:30> Stated Complaint: SOB <CECI Barajas Last Filed: 01/20/25 18:30> Time Seen by Provider: 01/20/25 14:04 <Agata Garcia PA-C - Last Filed: 01/20/25 18:30> Source: patient <CECI Barajas Last Filed: 01/20/25 18:30> Mode of arrival: ambulatory <CECI Barajas Last Filed: 01/20/25 18:30> Limitations: no limitations <CECI Barajas Last Filed: 01/20/25 18:30> History of Present Illness HPI Narrative: This is a 89 year old female that presents to the ER for shortness of breath. Reports she has been experiencing cold symptoms the last several days. She was started on a Z pack by her PCP. She has had worsening congestion, wheezing, swelling in her legs. She attempted to increase her lasix at home with little relief. <Agata Garcia PA-C - Last Filed: 01/20/25 18:30> Related Data Home Medications: Home Medications ?Medication ?Instructions ?Recorded ?Confirmed ?Last Taken ?Type cholecalciferol (vitamin D3) 50 50 mcg PO DAILY 08/28/21 01/10/25 Unknown History mcg (2,000 unit) capsule sodium chloride 5 % eye drops 1 drp EACH EYE BID 08/28/21 01/10/25 Unknown History calcium carbonate 600 mg PO BID 07/05/22 01/10/25 Unknown History docusate sodium 100 mg capsule 100 mg PO DAILY 06/13/23 01/10/25 Unknown History (Stool Softener) apixaban 5 mg tablet (Eliquis) 5 mg PO BID 08/04/23 01/10/25 Unknown History clobetasol 0.05 % topical ointment 1 applic topical DAILY 03/12/24 01/10/25 Unknown History <CECI Barajas Last Filed: 01/20/25 18:30> Allergies/Adverse Reactions: Allergies Allergy/AdvReac Type Severity Reaction Status Date / Time alendronate sodium (From AdvReac Unknown Gastrointestinal Verified 01/10/25 09:50 Fosamax) Upset <Agata Garcia PA-C - Last Filed: 01/20/25 18:30> Review of Systems 2 Review of Systems: All systems reviewed & are unremarkable except as noted in HPI and below <Agata Garcia PA-C - Last Filed: 01/20/25 18:30> [facility] Past Medical History Medical History: Medical History Anxiety Low vitamin D level Osteopenia GERD without esophagitis Psoriasis Interstitial lung disease Bronchitis Other emphysema Insomnia COPD (chronic obstructive pulmonary disease) Hypothyroidism (acquired) Graves disease Hyperthyroidism CHF (congestive heart failure) Murmur Carotid bruit Atrial fibrillation Essential (primary) hypertension Lumbar spondylosis <Agata Garcia PA-C - Last Filed: 01/20/25 18:30> Surgical History Surgical History: Surgical History History of cataract surgery both eyes 06/18/21 07/02/21 <Agata Garcia PA-C - Last Filed: 01/20/25 18:30> Family History Family History: Family History Sibling Family history of diabetes mellitus in first degree relative Family history of pancreatic cancer Family history of malignant neoplasm of bone Family history of malignant neoplasm of breast in first degree relative Father Family history of pancreatic cancer Mother , Blood clot Heart disease Sibling Diabetes mellitus Heart disease <Agata Garcia PA-C - Last Filed: 01/20/25 18:30> Social History Social History: Social History Smoking status: Never smoker Second hand tobacco smoke exposure: Yes Alcohol intake: never Substance use: never Substance use type: does not use Do You Feel Safe in your Home?: Yes Lack of Transportation: No Lack of Food: Never True Current Housing: I Have Housing Concerned About Future Housing: No Difficulty Paying Gas/Electric Bills: No Difficulty Paying for Meds: No Currently Unemployed: No Education: High School Diploma/GED Difficulty w/ Childcare or Family Care: No Living arrangements: alone Occupation/Education: retired 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 HEAD: Normocephalic, atraumatic. EYES: EOMI. ENT: Nares clear, no rhinorrhea or epistaxis. Mucous membranes moist. Oropharynx without tonsillar hypertrophy exudate or other lesions. NECK: Supple. No adenopathy or masses. CHEST: No respiratory distress. Expiratory wheezing, rales at the bases. No rhonchi HEART: Regular rate and rhythm. No murmur heard. Normal peripheral pulses. EXTREMITIES: Normal range of motion. Edema to the bilateral lower extremities. Normal DP pulses SKIN: Warm, dry, no rash. NEURO: No focal deficits. Alert and oriented x3. PSYCH: Normal mood and affect <Agata Garcia PA-C - Last Filed: 01/20/25 18:30> Course Course Emergency Course: Patient and family updated on workup and recommendation for admission < Agata Garcia PA-C - Last Filed: 01/20/25 18:30> DIESEL SERVICE TECHNICIAN/PA Physician Supervision For this patient encounter, I reviewed the DIESEL SERVICE TECHNICIAN or PA documentation, treatment plan, and medical decision making; and I had [id number] time with this patient. <Edu Womack MD - Last Filed: 01/20/25 19:02> Consultations Consultation #1: Spoke with hospitalist about patient and workup who accepts admission < Agata Garcia PA-C - Last Filed: 01/20/25 18:30> Date: 01/20/25 <Agata Garcia PA-C - Last Filed: 01/20/25 18:30> Vital Signs Vital signs: Vital Signs Temperature 97.8 F 01/20/25 13:42 Pulse Rate 85 01/20/25 13:42 Respiratory Rate 24 H 01/20/25 13:42 Blood Pressure 136/90 01/20/25 13:42 Pulse Oximetry 96 01/20/25 13:42 Oxygen Delivery Room Air 01/20/25 13:42 Temperature 97.8 F 01/20/25 13:42 Pulse Rate 89 01/20/25 18:20 Respiratory Rate 18 01/20/25 18:20 Blood Pressure 152/87 H 01/20/25 18:20 Pulse Oximetry 94 01/20/25 18:20 Oxygen Delivery Room Air 01/20/25 13:45 <Agata Garcia PA-C - Last Filed: 01/20/25 18:30> Vital Signs Temperature 97.8 F 01/20/25 13:42 Pulse Rate 85 01/20/25 13:42 Respiratory Rate 24 H 01/20/25 13:42 Blood Pressure 136/90 01/20/25 13:42 Pulse Oximetry 96 01/20/25 13:42 Oxygen Delivery Room Air 01/20/25 13:42 Temperature 97.8 F 01/20/25 13:42 Pulse Rate 89 01/20/25 18:20 Respiratory Rate 18 01/20/25 18:20 Blood Pressure 152/87 H 01/20/25 18:20 Pulse Oximetry 94 01/20/25 18:20 Oxygen Delivery Room Air 01/20/25 13:45 <Edu Womack MD - Last Filed: 01/20/25 19:02> MDM - SOB/Dyspnea MDM Narrative Medical decision making narrative: Patient presents to the emergency department for shortness of breath, cold symptoms. She is afebrile and nontoxic appearing. Oxygen saturation is normal on room air. She does have notable edema to the bilateral lower extremities, rales in the lower lungs. Wheezing upon arrival. CBC with mild leukocytosis to 10.8. Metabolic panel with mild hypokalemia as well as hypomagnesemia. These were replaced. Patient is influenza A and COVID positive. Chest x-ray shows a globular heart which could be cardiomegaly or a pericardial effusion. CTA of the chest obtained for further evaluation. No evidence of PE. Mild interstitial edema. Cardiomegaly. Large hiatal hernia. Patient given nebulizer treatment, steroid, Tamiflu, Lasix. Patient and family updated on workup and recommendation for admission. Spoke with hospitalist about patient and workup who accepts admission <Agata Garcia PA-C - Last Filed: 01/20/25 18:30> Differential Diagnosis Differential diagnosis: Likely acute exacerbation of chronic obstructive airways disease, congestive heart failure, community acquired pneumonia, asthma with exacerbation, pulmonary embolism and other (COVID, influenza) <Agata Garcia PA-C - Last Filed: 01/20/25 18:30> Lab Data Attestation: I reviewed the patient's lab results. <Agata Garcia PA-C - Last Filed: 01/20/25 18:30> Result diagrams: 01/20/25 13:51 01/20/25 13:51 <Agata Garcia PA-C - Last Filed: 01/20/25 18:30> Labs: Lab Results 01/20/25 01/20/25 Range/Units 13:51 14:31 WBC 10.8 H (4.5-10.0) K/mm3 RBC 4.64 (4.2-5.4) M/mm3 Hgb 12.0 (12.0-15.0) g/dL Hct 39.6 (37.0-47.0) % MCV 85.3 (80-100) fl MCH 25.9 L (26-34) pg MCHC 30.3 L (32-36) g/dl RDW 15.5 H (11.5-14.5) % Plt Count 252 (150-375) k/mm3 MPV 10.3 (7.4-10.4) fl Immature Gran % (Auto) 0.6 H (0-0.5) % Neut % (Auto) 76.4 H (45.5-73.1) % Lymph % (Auto) 14.2 L (18.3-44.2) % [place] % (Auto) 8.3 (2.6-8.5) % Eos % (Auto) 0.2 (0-4.4) % Baso % (Auto) 0.3 (0.2-1.2) % Lymph # (Auto) 1.53 (0.9-3.2) K/mm3 [place] # (Auto) 0.9 H (0.1-0.6) K/mm3 Eos # (Auto) 0.0 (0-0.3) K/mm3 Baso # (Auto) 0.0 (0.0-0.1) K/mm3 Abs Immat Gran (auto) 0.06 H (0.00-0.031) K/mm3 Absolute Neuts (auto) 8.2 H (1.3-6.7) K/mm3 Absolute Nucleated RBC 0.000 (0.0-0.012) K/mm3 Nucleated RBC % 0.0 (0.0-0.2) % PT 21.1 H (11.1-14.7) Seconds INR 1.8 APTT 51.4 H (22.3-36.8) Seconds Sodium 131 L (137-145) mmol/L Potassium 3.3 L (3.4-5.0) mmol/L Chloride 88 L (98-107) mmol/L Carbon Dioxide 32 H (22-30) mmol/L Anion Gap 11 (4-12) mmol/L BUN 15 D (7-17) mg/dL Creatinine 0.93 (0.7-1.0) mg/dL Estim Creat Clear Calc 31 ml/min Estimated GFR 57 L (59 - ) Glucose 128 H (65-110) mg/dL Calcium 8.7 (8.4-10.2) mg/dL Magnesium 1.5 L (1.6-2.3) mg/dL Total Bilirubin 1.4 H (0.2-1.3) mg/dL AST 33 (14-36) U/L ALT 21 (6-35) U/L Alkaline Phosphatase 62 (38-126) U/L Troponin I 0.034 (0.000-0.034) ng/mL NT-Pro-B Natriuret Pep 41847 H (19.9-100) pg/mL Total Protein 8.0 (6.3-8.2) g/dL Albumin 4.3 (3.5-5.1) g/dL Influenza A (RT-PCR) Positive A (Negative) Influenza B (RT-PCR) Negative (Negative) RSV (RT-PCR) Negative (Negative) SARS-CoV-2 RNA (RT-PCR) Positive A (Negative) <Agata Garcia PA-C - Last Filed: 01/20/25 18:30> Lab Results 01/20/25 01/20/25 Range/Units 13:51 14:31 WBC 10.8 H (4.5-10.0) K/mm3 RBC 4.64 (4.2-5.4) M/mm3 Hgb 12.0 (12.0-15.0) g/dL Hct 39.6 (37.0-47.0) % MCV 85.3 (80-100) fl MCH 25.9 L (26-34) pg MCHC 30.3 L (32-36) g/dl RDW 15.5 H (11.5-14.5) % Plt Count 252 (150-375) k/mm3 MPV 10.3 (7.4-10.4) fl Immature Gran % (Auto) 0.6 H (0-0.5) % Neut % (Auto) 76.4 H (45.5-73.1) % Lymph % (Auto) 14.2 L (18.3-44.2) % [place] % (Auto) 8.3 (2.6-8.5) % Eos % (Auto) 0.2 (0-4.4) % Baso % (Auto) 0.3 (0.2-1.2) % Lymph # (Auto) 1.53 (0.9-3.2) K/mm3 [place] # (Auto) 0.9 H (0.1-0.6) K/mm3 Eos # (Auto) 0.0 (0-0.3) K/mm3 Baso # (Auto) 0.0 (0.0-0.1) K/mm3 Abs Immat Gran (auto) 0.06 H (0.00-0.031) K/mm3 Absolute Neuts (auto) 8.2 H (1.3-6.7) K/mm3 Absolute Nucleated RBC 0.000 (0.0-0.012) K/mm3 Nucleated RBC % 0.0 (0.0-0.2) % PT 21.1 H (11.1-14.7) Seconds INR 1.8 APTT 51.4 H (22.3-36.8) Seconds Sodium 131 L (137-145) mmol/L Potassium 3.3 L (3.4-5.0) mmol/L Chloride 88 L (98-107) mmol/L Carbon Dioxide 32 H (22-30) mmol/L Anion Gap 11 (4-12) mmol/L BUN 15 D (7-17) mg/dL Creatinine 0.93 (0.7-1.0) mg/dL Estim Creat Clear Calc 31 ml/min Estimated GFR 57 L (59 - ) Glucose 128 H (65-110) mg/dL Calcium 8.7 (8.4-10.2) mg/dL Magnesium 1.5 L (1.6-2.3) mg/dL Total Bilirubin 1.4 H (0.2-1.3) mg/dL AST 33 (14-36) U/L ALT 21 (6-35) U/L Alkaline Phosphatase 62 (38-126) U/L Troponin I 0.034 (0.000-0.034) ng/mL NT-Pro-B Natriuret Pep 29606 H (19.9-100) pg/mL Total Protein 8.0 (6.3-8.2) g/dL Albumin 4.3 (3.5-5.1) g/dL Influenza A (RT-PCR) Positive A (Negative) Influenza B (RT-PCR) Negative (Negative) RSV (RT-PCR) Negative (Negative) SARS-CoV-2 RNA (RT-PCR) Positive A (Negative) <Edu Womack MD - Last Filed: 01/20/25 19:02> Imaging Data Radiologist's impression: ITS Impressions Chest X-Ray 01/20/25 15:28 IMPRESSION: Globular heart enlargement, may reflect cardiomegaly and/or pericardial effusion. Chest CTA 01/20/25 16:52 IMPRESSION: No CT evidence of acute pulmonary embolus. Mild interstitial edema versus respiratory bronchiolitis. Lingular tubular opacities may represent mucoid impaction or infection such as ABPA. 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 No large pericardial effusion, prior radiograph findings related to cardiomegaly. Large hiatal hernia with a dilated debris-filled esophagus may be related to esophageal dysmotility or prior pull-through procedure. Thyroid goiter. <Agata Garcia PA-C - Last Filed: 01/20/25 18:30> ECG Data EKG #1: ECG completion date: 01/20/25 <Agata Garcia PA-C - Last Filed: 01/20/25 18:30> EKG Interpretation: atrial fibrillation <Agata Garcia PA-C - Last Filed: 01/20/25 18:30> Critical Care Time Critical Care Time Critical Care Time: Yes <Agata Garcia PA-C - Last Filed: 01/20/25 18:30> Total Critical Care Time: 35 <Agata Garcia PA-C - Last Filed: 01/20/25 18:30> Discharge Plan Discharge Clinical Impression: Influenza A, COVID-19, Hypomagnesemia, Hypokalemia CHF exacerbation Qualifiers: Heart failure type: unspecified Qualified Code(s): I50.9 - Heart failure, unspecified <Agata Garcia PA-C - Last Filed: 01/20/25 18:30> Patient Disposition: Still a Patient <Agata Garcia PA-C - Last Filed: 01/20/25 18:30> Condition: Improved <Agata Garcia PA-C - Last Filed: 01/20/25 18:30>
[2025-01-20] MEDS: FUROSEMIDE INJ 40 MG/4 ML VIAL IV PUSH (14:45)
[2025-01-20] MEDS: MAGNESIUM SULF 2 GM/WATER 50ML 2 GM/50 ML BAG IVPB (14:47)
[2025-01-20] MEDS: methylPREDNISolone SOD SUCC 125 MG VIAL IV PUSH (14:47)
[2025-01-20] MEDS: IPRATROPIUM BR 0.02% INH SOLN 0.5 MG/2.5 ML VIAL INHALATION (14:50)
[2025-01-20] MEDS: LEVALBUTEROL NEB 1.25 MG/3 ML INHALATION (14:50)
[2025-01-20 15:11] LABS: Influenza A QL RT-PCR Positive (Negative); Influenza B QL RT-PCR Negative (Negative); RSV RNA, RT-PCR Negative (Negative); SARS-CoV-2 RNA PCR Positive (Negative)
[2025-01-20] MEDS: OSELTAMIVIR PHOSPHATE 75 MG CAPSULE PO (16:02)
--- NOTE | 2025-01-20 18:14 | P.HP_ITS ---
H&P: HPI History of Present Illness Date/Time: 01/20/25 18:14 Chief Complaint: Shortness of Breath Narrative: 89 y/o F presents here with shortness of breath with PMH of interstitial lung disease, diastolic dysfunction grade 2, osteopenia, Graves disease, hyperthyroidism, sinus arrhythmia, psoriasis, GERD, and HTN. The patient presents here with shortness of breath from home or facility? She reports onset over the last few weeks. At first shortness of breath was exertional, she was not able to walk as far as she typically can. The shortness of breath worsened in the last 3 days. She initially contacted her PCP a week ago and they planned for an EKG and outpatient echo this . She then contacted them 3 days ago and was prescribed a Z-Jayme on 01/17. She reports she has taken doses x3 days without relief and patient tolerated the medication poorly. The shortness of breath is also accompanied by lower extremity swelling, congestion, wheezing, diarrhea and mild nausea. She denies fever, chi lls, body aches, or vomiting. Denies sick contacts. The patient is on 20 mg of Lasix daily, she increased this dose to 40 mg (3 doses) in attempts to treat the swelling with minimal relief. Last echo done in 2021 which showed hyperdynamic systolic function, estimated EF greater than 70%, and grade 2 diastolic dysfunction (see report for full details). Initial VS at presentation: 97.8? F, HR 85, R 24, 136/90, and 96% on RA. ED workup showed: WBC 10.8, no anemia, INR 1.8, sodium 131, potassium 3.3, creatinine 0.93 and GFR 57, magnesium 1.5, BNP 13091, initial troponin 0.034. Patient tested positive for Influenza A and COVID. CXR showed globular heart and large mint may reflect cardiomegaly and/or pericardial effusion. Chest CTA showed no evidence of PE, mild interstitial edema versus respiratory bronchiolitis, lingular tubular opacities, chronic interstitial change, cardiomegaly, large hiatal hernia, and thyroid goiter. Review of Systems Review of Systems: All systems reviewed & are unremarkable except as noted in HPI and below PMFSH Past Medical History Medical History (Updated 01/20/25 @ 23:30 by Laureen Prince, VIANEY) Hyperthyroidism Anxiety Low vitamin D level Osteopenia GERD without esophagitis Psoriasis Interstitial lung disease Bronchitis Other emphysema Insomnia COPD (chronic obstructive pulmonary disease) Graves disease CHF (congestive heart failure) Murmur Carotid bruit Atrial fibrillation Essential (primary) hypertension Lumbar spondylosis Surgical History Surgical History History of cataract surgery both eyes 06/18/21 07/02/21 Family History Family History Sibling Family history of diabetes mellitus in first degree relative Family history of pancreatic cancer Family history of malignant neoplasm of bone Family history of malignant neoplasm of breast in first degree relative Father Family history of pancreatic cancer Mother , Blood clot Heart disease Sibling Diabetes mellitus Heart disease Social History Social History Smoking status: Never smoker Second hand tobacco smoke exposure: Yes Alcohol intake: never Substance use: never Substance use type: does not use Do You Feel Safe in your Home?: Yes Lack of Transportation: No Lack of Food: Never True Current Housing: I Have Housing Concerned About Future Housing: No Difficulty Paying Gas/Electric Bills: No Difficulty Paying for Meds: No Currently Unemployed: No Education: High School Diploma/GED Difficulty w/ Childcare or Family Care: No Living arrangements: alone Occupation/Education: retired 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 Gender identity (if verbalized by the patient): Female Spiritual care concerns: No Meds Home Medications and Allergies Home Medications ?Medication ?Instructions ?Recorded ?Confirmed ?Type cholecalciferol (vitamin D3) 50 50 mcg PO DAILY 08/28/21 01/20/25 History mcg (2,000 unit) capsule sodium chloride 5 % eye drops 1 drp EACH EYE BID 08/28/21 01/20/25 History potassium chloride 10 mEq 10 meq PO DAILY #30 caps 05/27/22 01/20/25 Rx capsule,extended release calcium carbonate 600 mg PO BID 07/05/22 01/20/25 History docusate sodium 100 mg capsule 100 mg PO QHS 06/13/23 01/20/25 History (Stool Softener) apixaban 5 mg tablet (Eliquis) 10 mg PO BID 08/04/23 01/20/25 History metoprolol succinate 50 mg 50 mg PO DAILY #90 tabs 08/04/23 01/20/25 Rx tablet,extended release 24 hr albuterol sulfate 90 mcg/actuation 1 inh inhalation Q4H PRN shortness 08/06/24 01/20/25 Rx aerosol inhaler (Ventolin HFA) of breath or wheezing #8.5 grams alprazolam 0.25 mg tablet (Xanax) 0.25 mg PO TID anxiety #90 tabs 08/12/24 01/20/25 Rx lisinopril 20 mg tablet See Rx Instructions .Route 09/13/24 01/20/25 Rx .COMPLEX #90 tabs methimazole 10 mg tablet 10 mg PO DAILY #90 tabs 12/28/24 01/20/25 Rx furosemide 20 mg tablet 20 mg PO QAM #30 tabs 01/01/25 01/20/25 Rx omeprazole 20 mg capsule,delayed 20 mg PO BID #180 caps 01/16/25 01/20/25 Rx release azithromycin 250 mg tablet See Rx Instructions PO .COMPLEX #6 01/17/25 01/20/25 Rx tabs levothyroxine 75 mcg tablet 75 mcg PO DAILY #30 tabs 01/17/25 01/20/25 Rx (Levoxyl) budesonide-formoterol HFA 160 2 puff inhalation Q12H 01/20/25 01/20/25 History mcg-4.5 mcg/actuation aerosol inhaler (Symbicort) Allergies Allergy/AdvReac Type Severity Reaction Status Date / Time alendronate sodium (From AdvReac Unknown Gastrointestinal Verified 01/10/25 09:50 Fosamax) Upset Vital Signs Vital Signs - 24 hr 01/20/25 13:42 01/20/25 13:45 01/20/25 13:45 Temperature 97.8 F Pulse Rate 85 85 Respiratory Rate 24 H Blood Pressure 136/90 Pulse Oximetry 96 Oxygen Delivery Room Air Room Air 01/20/25 14:02 01/20/25 14:16 01/20/25 14:31 Temperature Pulse Rate 88 97 96 Respiratory Rate 21 H 20 24 H Blood Pressure 138/65 130/63 128/70 Pulse Oximetry 92 94 92 Oxygen Delivery 01/20/25 14:53 01/20/25 15:03 01/20/25 15:20 Temperature Pulse Rate 84 87 85 Respiratory Rate 17 18 21 H Blood Pressure 126/72 Pulse Oximetry 94 Oxygen Delivery 01/20/25 16:00 01/20/25 17:01 01/20/25 17:31 Temperature Pulse Rate 101 H 97 97 Respiratory Rate 22 H 22 H 23 H Blood Pressure 130/74 162/77 H 169/72 H Pulse Oximetry 94 94 94 Oxygen Delivery 01/20/25 18:01 Temperature Pulse Rate 87 Respiratory Rate 17 Blood Pressure 149/65 H Pulse Oximetry 94 Oxygen Delivery Exam Narrative: 1+ pittin g edema, SYM. Const: General: comfortable and no acute distress Other: , female, nontoxic appearance, elderly HENMT: Face/Nose/Sinus: Normal nares present Mouth: Yes moist mucous membranes Eyes: General: appearance normal, both eyes and all related structures Sclera: sclerae normal Pupils: Equal, round and reactive pupils present EOM: EOMs intact bilaterally Resp: Effort & Inspection: normal respiratory effort Other: No wheezing. Bibasilar crackles. Cardio: Rate: regular rate Rhythm: regular rhythm Other: S1-S2 present without murmur, rub, ectopy GI: Other: Abdomen soft, nondistended, nontender. Skin: General skin exam: normal color and no rashes or lesions noted Wounds: no wounds Neuro: Speech: normal speech Motor exam (neuro): 5/5 motor strength present throughout Sensory Exam: normal sensation Other: A&O x4 Extrem: Other: 1 to 2 +pitting edema to bilateral lower extremities, symmetric Psych: Mental Status: mental status grossly normal Affect: normal affect Other: Good insight and judgment, very pleasant H&P: Results Labs Labs: Short CBC 01/20/25 Range/Units 13:51 WBC 10.8 H (4.5-10.0) K/mm3 Hgb 12.0 (12.0-15.0) g/dL Hct 39.6 (37.0-47.0) % Plt Count 252 (150-375) k/mm3 BMP 01/20/25 13:51 Sodium 131 L Potassium 3.3 L Chloride 88 L Carbon Dioxide 32 H BUN 15 D Creatinine 0.93 Glucose 128 H Calcium 8.7 Cardiac Enzymes 01/20/25 Range/Units 13:51 Troponin I 0.034 (0.000-0.034) ng/mL Liver Function 01/20/25 Range/Units 13:51 Total Bilirubin 1.4 H (0.2-1.3) mg/dL AST 33 (14-36) U/L ALT 21 (6-35) U/L Alkaline Phosphatase 62 (38-126) U/L Albumin 4.3 (3.5-5.1) g/dL Assessment and Plan Assessment and plan (1) CHF (congestive heart failure): Qualifiers: Heart failure chronicity: chronic Heart failure type: diastolic Qualified Code(s): I50.32 - Chronic diastolic (congestive) heart failure Code(s): I50.9 - Heart failure, unspecified Status: Acute Assessment and Plan: - BNP 36849 - most recent echo (2021): Severe concentric increased left ventricular wall thickness, systolic function hyperdynamic, estimated EF greater than 70%, grade 2 diastolic dysfunction. See report for details. - currently on Lasix 20 daily will transition the patient to Lasix 40 mg IV daily - monitor I&Os and daily weights - trend renal function (2) Influenza A: Code(s): J10.1 - Influenza due to other identified influenza virus with other respiratory manifestations Status: Acute Assessment and Plan: - tested positive for influenza A on 01/20 - CXR: Globular heart enlargement, may reflect cardiomegaly and/or pericardial effusion. - CTA: No CT evidence of acute pulmonary embolus. Mild interstitial edema versus respiratory bronchiolitis. Lingular tubular opacities may represent mucoid impaction or infection such as ABPA. 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 No large pericardial effusion, prior radiograph findings related to cardiomegaly. Large hiatal hernia with a dilated debris-filled esophagus may be related to esophageal dysmotility or prior pull-through procedure. Thyroid goiter. - Tamiflu 75 mg BID - supportive care: Tylenol p.r.n. Mucinex adriana DuoNeb p.r.n. Tessalon Perles p.r.n. Lozenge p.r.n. - monitor WBC/CBC - currently not requiring increased supplemental O2 (3) COVID-19: Code(s): U07.1 - COVID-19 Status: Acute Assessment and Plan: - symptom onset: 01/17 - tested positive for COVID on: 01/20 - complicating comorbidities: concurrent Flu A, COPD - start remdesivir - see CXR/CTA results above - supportive care - monitor VS/O2 - monitor daily labs, add CRP to AM labs (4) COPD (chronic obstructive pulmonary disease): Qualifiers: COPD type: emphysema Emphysema type: unspecified Qualified Code(s): J43.9 - Emphysema, unspecified Code(s): J44.9 - Chronic obstructive pulmonary disease, unspecified Status: Acute Assessment and Plan: - DuoNebs adriana - start steroids: Initially given with prednisone, will transition to oral prednisone x5 days - continue Symbicort (5) Hyperthyroidism: Code(s): E05.90 - Thyrotoxicosis, unspecified without thyrotoxic crisis or storm Status: Acute Assessment and Plan: Patient has a history of hyperthyroidism and follows with [facility] for her endocrine care. Denies having ever undergone a thyroidectomy. Last saw her on 09/12/2024 and the patient's methimazole was increased from 7.5-10 mg. Patient then had follow-up with her primary who checked a TSH on 01/10/2025 which showed a TSH of 8.24 with a T4 of 0.9. Patient was prescribed Synthroid. The patient denies any history of thyroid surgery. Synthroid and Methimazole have been held. The patient plans to reach out to her video game designer to alert her to the change in thyroid levels/review plan. (6) Essential (primary) hypertension: Code(s): I10 - Essential (primary) hypertension Status: Chronic Assessment and Plan: - chronic, currently 188/99 - continue home medications: Lisinopril, metoprolol - monitor Plan The patient was started on azithromycin outpatient due to concerns for pneumonia/bronchitis. She reports she has taken 4 pills (3 doses), will continue this course inpatient. Patient also had Lingular tubular opacities on CT which may represent mucoid impaction or infection such as ABPA. Will consult pulmonology for their review/recommendations. Diet: Heart healthy GI Prophylaxis: Not currently indicated DVT Prophylaxis: Eliquis Lines: Peripheral Code Status: DNR Quality VTE Prophylaxis VTE prophylaxis: pharmacologic ordered Hospitalist [facility] Advance Care Plan I have confirmed that the patient's Advanced Care Plan is present, code status is documented, or surrogate decision maker is listed in patient medical record.: Yes Medication Reconciliation I have utilized all available resources to obtain, update and review [facility] current medications (includes all prescriptions, OTC, herbals, cannabis, and nutritional supplements).: Yes
[2025-01-20] MEDS: POTASSIUM CHLORIDE 20 MEQ ER TABLET 40 MEQ PO (18:32)
--- NOTE | 2025-01-20 19:56 | ADMGEN ---
This patient, Nestor Carter, was admitted to [facility] Room 302-01. Patient/family oriented to hospital policies and general routines including ID bracelet, bed and alarms, visiting hours, pain management, procedures, bathroom and other care routines, personal items, smoking policy, room service/diet, and visiting hours. Information on how to activate the Rapid Response Team has been discussed. Patient/Family are encouraged to report perceived risks to care and to ask questions if they do not understand what they are told or what they should do.
[2025-01-20] MEDS: POTASSIUM CHLORIDE 20 MEQ PACKET (FOR LIQUID) 40 MEQ PO (20:31)
[2025-01-20] MEDS: REMDESIVIR 200 MG/NS 250 ML 200 MG/250 ML BAG 250 MG IVPB (20:32)
[2025-01-20] MEDS: guaiFENesin 12 HR 600 MG TABCR PO (20:46)
--- NOTE | 2025-01-20 21:05 | PHAR ---
Lisinopril 20mg AM Vitamin D 2000mg AM Methimazole 10mg AM
[2025-01-20] MEDS: DOCUSATE SODIUM 100 MG CAPSULE PO (21:50)
[2025-01-20] MEDS: SODIUM CHLORIDE 5% OP SOLN 15 ML BTL 1 DROP EACH EYE (21:50)
[2025-01-20] MEDS: APIXABAN 5 MG TABLET 10 MG PO (21:50)
[2025-01-21] VITALS (9 sets, daily range): BP systolic 127–141; BP diastolic 60–88; PULSE 65–86; RESP 16–20; TEMP 36.2–36.4; O2SAT 91–98
[2025-01-21 05:24] LABS: Basophils Percent Auto 0.2 % (0.2-1.2); Hematocrit 36.2 % (37.0-47.0); Hemoglobin 11.4 g/dL (12.0-15.0); Immature Granulocyte Absolute 0.04 K/mm3 (0.00-0.031); Immature Granulocyte Percent A 0.7 % (0-0.5); Lymphocytes Absolute Auto 0.83 K/mm3 (0.9-3.2); Lymphocytes Percent Auto 14.4 % (18.3-44.2); Mean Corpuscular HGB Conc 31.5 g/dl (32-36); Mean Corpuscular Hemoglobin 26.6 pg (26-34); Mean Corpuscular Volume 84.4 fl (80-100); Mean Platelet Volume 10.6 fl (7.4-10.4); Monocytes Absolute Auto 0.3 K/mm3 (0.1-0.6); Monocytes Percent Auto 5.2 % (2.6-8.5); Neutrophils Absolute Auto 4.6 K/mm3 (1.3-6.7); Neutrophils Percent Auto 79.5 % (45.5-73.1); Platelet Count Result 215 k/mm3 (150-375); Red Blood Count 4.29 M/mm3 (4.2-5.4); Red Cell Distribution Width 15.3 % (11.5-14.5); White Blood Count 5.8 K/mm3 (4.5-10.0)
[2025-01-21 05:38] LABS: Anion Gap 6 mmol/L (4-12); Blood Urea Nitrogen 18 mg/dL (7-17); Calcium 8.4 mg/dL (8.4-10.2); Carbon Dioxide 33 mmol/L (22-30); Chloride 95 mmol/L (98-107); Estimated CRCL calculation 29 ml/min; Estimated Glomerular Filt Rate 52; Glucose 156 mg/dL (65-110); Sodium 134 mmol/L (137-145)
[2025-01-21] MEDS: OSELTAMIVIR PHOSPHATE 30 MG CAPSULE PO ×2 (05:44→16:56)
[2025-01-21] MEDS: METOPROLOL SUCCINATE EXT REL 50 MG TABCR PO (09:40)
[2025-01-21] MEDS: lisinopriL 20 MG TABLET PO (09:40)
[2025-01-21] MEDS: CHOLECALCIFEROL 1,000 UNITS TABLET 2000 UNITS PO (09:40)
[2025-01-21] MEDS: BENZONATATE 100 MG CAPSULE PO ×3 (09:43→17:47)
[2025-01-21] MEDS: APIXABAN 5 MG TABLET 10 MG PO ×2 (09:46→21:25)
[2025-01-21] MEDS: AZITHROMYCIN 250 MG TABLET PO (09:46)
[2025-01-21] MEDS: guaiFENesin 12 HR 600 MG TABCR PO ×2 (09:46→21:25)
[2025-01-21] MEDS: CALCIUM CARBONATE (OSCAL) 500 MG TABLET PO ×2 (09:46→16:56)
[2025-01-21] MEDS: POTASSIUM CHLORIDE 10 MEQ ER TABLET PO (09:46)
[2025-01-21] MEDS: PANTOPRAZOLE 40 MG TABLET PO ×2 (09:46→16:56)
[2025-01-21] MEDS: ALPRAZolam (*CRX) 0.25 MG TABLET PO ×2 (09:46→16:56)
[2025-01-21] MEDS: SODIUM CHLORIDE 5% OP SOLN 15 ML BTL 1 DROP EACH EYE ×2 (09:47→21:25)
[2025-01-21] MEDS: predniSONE 20 MG TABLET 40 MG PO (09:47)
[2025-01-21] MEDS: FUROSEMIDE INJ 40 MG/4 ML VIAL IV PUSH (09:47)
--- NOTE | 2025-01-21 10:01 | PCRCNOTE ---
Window of time for administration has passed. See next scheduled administration.
--- NOTE | 2025-01-21 10:10 | P.CONPL_ITS ---
Assessment and Plan Assessment and plan (1) CHF (congestive heart failure): Qualifiers: Heart failure chronicity: chronic Heart failure type: diastolic Q ualified Code(s): I50.32 - Chronic diastolic (congestive) heart failure Code(s): I50.9 - Heart failure, unspecified Status: Acute (2) CHF exacerbation: Qualifiers: Heart failure type: unspecified Qualified Code(s): I50.9 - Heart failure, unspecified Code(s): I50.9 - Heart failure, unspecified Status: Acute (3) Mitral regurgitation: Code(s): I34.0 - Nonrheumatic mitral (valve) insufficiency Status: Acute (4) Hyperthyroidism: Code(s): E05.90 - Thyrotoxicosis, unspecified without thyrotoxic crisis or storm Status: Acute (5) Influenza A: Code(s): J10.1 - Influenza due to other identified influenza virus with other respiratory manifestations Status: Acute (6) COVID-19: Code(s): U07.1 - COVID-19 Status: Acute (7) Abnormal CT of the chest: Code(s): R93.89 - Abnormal findings on diagnostic imaging of other specified body structures Status: Acute Assessment and Plan: This 89-year-old female has a history of heart failure with preserved ejection fraction, for which she has been receiving treatment. Her clinical history and diagnostic studies suggest an exacerbation of her congestive heart failure, likely triggered by viral infections such as influenza A and/or COVID-19. She is currently on Tamiflu and receiving treatment for a COVID-19 infection. A review of her chest CT shows no evidence of pneumonia related to COVID-19, although she is currently receiving remdesivir. The chest CT reveals some nonspecific changes described in the radiology report, including mild bronchial wall thickening, mild patchy scattered ground-glass opacities, and tubular opacities in the peripheral lingula. Additionally, it shows very mild localized honeycombing changes and very mild peripheral reticulation, especially in the left lower lung, which are not typical for UIP but rather suggest nonspecific interstitial lung disease changes. As noted, pulmonary function testing shows no clear evidence of COPD or restrictive respiratory disease. Plan: I have discontinued remdesivir. Continue using short-acting bronchodilators on a p.r.n. basis. Maintain the current antibiotic, maintenance bronchodilator, and oral prednisone. Anticipate discontinuing prednisone in a day or so. I will continue to follow the patient along with you. History of Present Illness History of Present Illness Consult date: 01/21/25 Chief complaint: chf exacerbation,shanae charles Narrative: This is an 89-year-old female with a history of left ventricular diastolic dysfunction who presented with shortness of breath and upper respiratory symptoms lasting several days. She has a history of congestive heart failure related to left ventricular diastolic dysfunction, with an echocardiogram from approximately three years ago showing mild mitral regurgitation and severe left ventricular hypertrophy. Regarding respiratory issues, the patient has been using a Symbicort inhaler, presumably for COPD. She was in her usual state of health until about two weeks ago when she began experiencing shortness of breath. A few days before this admission, she developed symptoms resembling an upper respiratory infection, including a runny nose, mild coughing, and wheezing, but no fever, chills, or hemoptysis. She also noticed increasing lower extremity edema over the past couple of weeks. Azithromycin was prescribed approximately 3 to 4 days before this admission, but there was no improvement. A chest CT revealed nonspecific interstitial lung disease changes, with mild honeycombing, particularly on the right, rare reticulations, and scattered ground-glass opacities, especially in the left lung. She tested positive for both influenza A and COVID-19. Her BNP was elevated to over 18,000. In addition to treatment for congestive heart failure, she is currently receiving steroids, Tamiflu, remdesivir, short-acting bronchodilators, and azithromycin. Upon questioning, she reported improvement since her hospital admission and is currently on room air. A review of previous pulmonary function tests from the summer showed a borderline normal FEV1 with no evidence of restrictive or obstructive airway disease. Her lung diffusion capacity was also borderline normal. The patient is a never smoker. As an outpatient, she has been on Symbicort but is unsure why she was started on this maintenance bronchodilator. She also uses nebulized short-acting bronchodilators at home for shortness of breath. Review of Systems 2 Review of Systems: All systems reviewed & are unremarkable except as noted in HPI and below (HPI and below) [facility] Past Medical History Medical History (Updated 01/21/25 @ 10:20 by Ady Fofana MD) Hyperthyroidism Anxiety Low vitamin D level Osteopenia GERD without esophagitis Psoriasis Interstitial lung disease Bronchitis Other emphysema Insomnia COPD (chronic obstructive pulmonary disease) Graves disease CHF (congestive heart failure) Murmur Carotid bruit Atrial fibrillation Essential (primary) hypertension Lumbar spondylosis Surgical History Surgical History History of cataract surgery both eyes 06/18/21 07/02/21 Family History Family History Sibling Family history of diabetes mellitus in first degree relative Family history of pancreatic cancer Family history of malignant neoplasm of bone Family history of malignant neoplasm of breast in first degree relative Father Family history of pancreatic cancer Mother , Blood clot Heart disease Sibling Diabetes mellitus Heart disease Social History Social History Smoking status: Never smoker Second hand tobacco smoke exposure: Yes Alcohol intake: never Substance use: never Substance use type: does not use Do You Feel Safe in your Home?: Yes Lack of Transportation: No Lack of Food: Never True Current Housing: I Have Housing Concerned About Future Housing: No Difficulty Paying Gas/Electric Bills: No Difficulty Paying for Meds: No Currently Unemployed: No Education: High School Diploma/GED Difficulty w/ Childcare or Family Care: No Living arrangements: alone Occupation/Education: retired 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 Gender identity (if verbalized by the patient): Female Spiritual care concerns: No Meds Home Medications and Allergies Home Medications ?Medication ?Instructions ?Recorded ?Confirmed ?Type cholecalciferol (vitamin D3) 50 50 mcg PO DAILY 08/28/21 01/20/25 History mcg (2,000 unit) capsule sodium chloride 5 % eye drops 1 drp EACH EYE BID 08/28/21 01/20/25 History potassium chloride 10 mEq 10 meq PO DAILY #30 caps 05/27/22 01/20/25 Rx capsule,extended release calcium carbonate 600 mg PO BID 07/05/22 01/20/25 History docusate sodium 100 mg capsule 100 mg PO QHS 06/13/23 01/20/25 History (Stool Softener) apixaban 5 mg tablet (Eliquis) 10 mg PO BID 08/04/23 01/20/25 History metoprolol succinate 50 mg 50 mg PO DAILY #90 tabs 08/04/23 01/20/25 Rx tablet,extended release 24 hr albuterol sulfate 90 mcg/actuation 1 inh inhalation Q4H PRN shortness 08/06/24 01/20/25 Rx aerosol inhaler (Ventolin HFA) of breath or wheezing #8.5 grams alprazolam 0.25 mg tablet (Xanax) 0.25 mg PO TID anxiety #90 tabs 08/12/24 01/20/25 Rx lisinopril 20 mg tablet See Rx Instructions .Route 09/13/24 01/20/25 Rx .COMPLEX #90 tabs methimazole 10 mg tablet 10 mg PO DAILY #90 tabs 12/28/24 01/20/25 Rx furosemide 20 mg tablet 20 mg PO QAM #30 tabs 01/01/25 01/20/25 Rx omeprazole 20 mg capsule,delayed 20 mg PO BID #180 caps 01/16/25 01/20/25 Rx release azithromycin 250 mg tablet See Rx Instructions PO .COMPLEX #6 01/17/25 01/20/25 Rx tabs levothyroxine 75 mcg tablet 75 mcg PO DAILY #30 tabs 01/17/25 01/20/25 Rx (Levoxyl) budesonide-formoterol HFA 160 2 puff inhalation Q12H 01/20/25 01/20/25 History mcg-4.5 mcg/actuation aerosol inhaler (Symbicort) Allergies Allergy/AdvReac Type Severity Reaction Status Date / Time alendronate sodium (From AdvReac Unknown Gastrointestinal Verified 01/10/25 09:50 Fosamax) Upset Vital Signs Vital Signs - 24 hr 01/20/25 13:42 01/20/25 13:45 01/20/25 13:45 Temperature 36.6 C Pulse Rate 85 85 Respiratory Rate 24 H Blood Pressure 136/90 Pulse Oximetry 96 Oxygen Delivery Room Air Room Air 01/20/25 14:02 01/20/25 14:16 01/20/25 14:31 Temperature Pulse Rate 88 97 96 Respiratory Rate 21 H 20 24 H Blood Pressure 138/65 130/63 128/70 Pulse Oximetry 92 94 92 Oxygen Delivery 01/20/25 14:53 01/20/25 15:03 01/20/25 15:20 Temperature Pulse Rate 84 87 85 Respiratory Rate 17 18 21 H Blood Pressure 126/72 Pulse Oximetry 94 Oxygen Delivery 01/20/25 16:00 01/20/25 17:01 01/20/25 17:31 Temperature Pulse Rate 101 H 97 97 Respiratory Rate 22 H 22 H 23 H Blood Pressure 130/74 162/77 H 169/72 H Pulse Oximetry 94 94 94 Oxygen Delivery 01/20/25 18:01 01/20/25 18:20 01/20/25 19:11 Temperature 36.6 C Pulse Rate 87 89 94 Respiratory Rate 17 18 20 Blood Pressure 149/65 H 152/87 H 188/99 H Pulse Oximetry 94 94 96 Oxygen Delivery 01/20/25 20:00 01/20/25 21:53 01/21/25 05:09 Temperature 36.2 C L 36.2 C L Pulse Rate 94 88 80 Respiratory Rate 20 18 18 Blood Pressure 143/96 H 141/88 H Pulse Oximetry 96 92 93 Oxygen Delivery Room Air Exam 2 Narrative: GENERAL APPEARANCE: Well developed, well nourished, alert and cooperative, and appears to be in no acute distress while breathing room air sitting in chair SKIN: Inspection of the skin reveals no rashes, ulcerations or petechiae. HEENT: Sclerae anicteric and conjunctivae pink and moist. Extraocular movements were intact and pupils were equal, round. Moist mucosa NECK: Supple. There was no thyroid enlargement, and no tenderness, or masses were felt. LUNGS: Crackles at bases posteriorly CARDIAC: There was a regular rate and rhythm without any murmurs, gallops, rubs. ABDOMEN: Soft and nontender with normal bowel sounds. There was no organomegaly. LYMPH NODES: No lymphadenopathy was appreciated in the neck. EXTREMITIES: No cyanosis, clubbing; 1+ edema. NEUROLOGIC: Alert and oriented x 3. Normal affect. Results Laboratory Findings 01/21/25 04:51 01/21/25 04:51 ABG, PT/INR, D-dimer: PT/INR, D-dimer PT 21.1 Seconds (11.1-14.7) H 01/20/25 13:51 INR 1.8 01/20/25 13:51 Abnormal lab findings: Abnormal Labs 01/20/25 01/20/25 01/21/25 13:51 14:31 04:51 WBC 10.8 H Hgb 11.4 L Hct 36.2 L MCH 25.9 L MCHC 30.3 L 31.5 L RDW 15.5 H 15.3 H MPV 10.6 H Immature Gran % (Auto) 0.6 H 0.7 H Neut % (Auto) 76.4 H 79.5 H Lymph % (Auto) 14.2 L 14.4 L Lymph # (Auto) 0.83 L [place] # (Auto) 0.9 H Abs Immat Gran (auto) 0.06 H 0.04 H Absolute Neuts (auto) 8.2 H PT 21.1 H APTT 51.4 H Sodium 131 L 134 L Potassium 3.3 L Chloride 88 L 95 L Carbon Dioxide 32 H 33 H BUN 18 H Estimated GFR 57 L 52 L Glucose 128 H 156 H Magnesium 1.5 L Total Bilirubin 1.4 H NT-Pro-B Natriuret Pep 21492 H Influenza A (RT-PCR) Positive A SARS-CoV-2 RNA (RT-PCR) Positive A
--- NOTE | 2025-01-21 13:20 | P.PNIM_ITS ---
Progress Note: A&P Assessment and Plan (1) CHF (congestive heart failure): Qualifiers: Heart failure chronicity: chronic Heart failure type: diastolic Qualified Code(s): I50.32 - Chronic diastolic (congestive) heart failure Code(s): I50.9 - Heart failure, unspecified Status: Acute Assessment and Plan: - BNP 79696 - most recent echo (2021): Severe concentric increased left ventricular wall thickness, systolic function hyperdynamic, estimated EF greater than 70%, grade 2 diastolic dysfunction. See report for details. - currently on Lasix 20 daily will transition the patient to Lasix 40 mg IV daily - monitor I&Os and daily weights - trend renal function (2) Influenza A: Code(s): J10.1 - Influenza due to other identified influenza virus with other respiratory manifestations Status: Acute Assessment and Plan: - tested positive for influenza A on 01/20 - CXR: Globular heart enlargement, may reflect cardiomegaly and/or pericardial effusion. - CTA: No CT evidence of acute pulmonary embolus. Mild interstitial edema versus respiratory bronchiolitis. Lingular tubular opacities may represent mucoid impaction or infection such as ABPA. 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 No large pericardial effusion, prior radiograph findings related to cardiomegaly. Large hiatal hernia with a dilated debris-filled esophagus may be related to esophageal dysmotility or prior pull-through procedure. Thyroid goiter. - Tamiflu 75 mg BID-started inED but stopped per pulm. - supportive care: Tylenol p.r.n. Mucinex adriana DuoNeb p.r.n. Tessalon Perles p.r.n. Lozenge p.r.n. - monitor WBC/CBC - currently not requiring increased supplemental O2 pulm was consulted- notes reviewed. (3) COVID-19: Code(s): U07.1 - COVID-19 Status: Acute Assessment and Plan: - symptom onset: 01/17 - tested positive for COVID on: 01/20 - complicating comorbidities: concurrent Flu A, COPD - start remdesivir- stopped - see CXR/CTA results above - supportive care - monitor VS/O2 - monitor daily labs, add CRP to AM labs (4) COPD (chronic obstructive pulmonary disease): Qualifiers: COPD type: emphysema Emphysema type: unspecified Qualified Code(s): J43.9 - Emphysema, unspecified Code(s): J44.9 - Chronic obstructive pulmonary disease, unspecified Status: Acute Assessment and Plan: - [facility] - start steroids: Initially given with prednisone, will transition to oral prednisone x5 days - continue Symbicort (5) Hyperthyroidism: Code(s): E05.90 - Thyrotoxicosis, unspecified without thyrotoxic crisis or storm Status: Acute Assessment and Plan: Patient has a history of hyperthyroidism and follows with [facility] for her endocrine care. Denies having ever undergone a thyroidectomy. Last saw her on 09/12/2024 and the patient's methimazole was increased from 7.5-10 mg. Patient then had follow-up with her primary who checked a TSH on 01/10/2025 which showed a TSH of 8.24 with a T4 of 0.9. Patient was prescribed Synthroid. The patient denies any history of thyroid surgery. Synthroid and Methimazole have been held. The patient plans to reach out to her principal quality engineer to alert her to the change in thyroid levels/review plan. (6) Essential (primary) hypertension: Code(s): I10 - Essential (primary) hypertension Status: Chronic Assessment and Plan: - chronic, 141/88 - continue home medications: Lisinopril, metoprolol - monitor Plan The patient was started on azithromycin outpatient due to concerns for pneumonia/bronchitis. She reports she has taken 4 pills (3 doses), will continue this course inpatient. Patient also had Lingular tubular opacities on CT which may represent mucoid impaction or infection such as ABPA. Will consult pulmonology for their review/recommendations. Diet: Heart healthy GI Prophylaxis: Not currently indicated DVT Prophylaxis: Eliquis Lines: Peripheral Code Status: DNR Time Spent With Patient Time with patient: 25 - 35 minutes Subjective Date/time seen: 01/21/25 13:20 Interval history: 89 y/o F presents here with shortness of breath with PMH of interstitial lung disease, diastolic dysfunction grade 2, osteopenia, Graves disease, hyperthyroidism, sinus arrhythmia, psoriasis, GERD, and HTN admitted with shortness of breath. She was prescribed and completed Z-Jayme on 01/17. She reports she has taken doses x3 days without relief and patient tolerated the medication poorly. The shortness of breath is also accompanied by lower extremity swelling, congestion, wheezing, diarrhea and mild nausea. She denies fever, chills, body aches, or vomiting. Denies sick contacts. The patient is on 20 mg of Lasix daily, she increased this dose to 40 mg (3 doses) in attempts to treat the swelling with minimal relief. Last echo done in 2021 which showed hyperdynamic systolic function, estimated EF greater than 70%, and grade 2 diastolic dysfunction (see report for full details). Initial VS at presentation: 97.8? F, HR 85, R 24, 136/90, and 96% on RA. ED workup showed: WBC 10.8, no anemia, INR 1.8, sodium 131, potassium 3.3, creatinine 0.93 and GFR 57, magnesium 1.5, BNP 98928, initial troponin 0.034. Patient tested positive for Influenza A and COVID. CXR showed globular heart and large mint may reflect cardiomegaly and/or pericardial effusion. Chest CTA showed no evidence of PE, mild interstitial edema versus respiratory bronchiolitis, lingular tubular opacities, chronic interstitial change, cardiomegaly, large hiatal hernia, and thyroid goiter. Pt is seen and examined. she is on RA, still sob with activities. Legs get swollen at times. Review of Systems Review of Systems: All systems reviewed & are unremarkable except as noted in HPI and below Exam Narrative: 1+ pittin g edema, SYM. Const: General: comfortable and no acute distress Other: , female, nontoxic appearance, elderly HENMT: Face/Nose/Sinus: Normal nares present Mouth: Yes moist mucous membranes Eyes: General: appearance normal, both eyes and all related structures Sclera: sclerae normal Pupils: Equal, round and reactive pupils present EOM: EOMs intact bilaterally Resp: Effort & Inspection: normal respiratory effort Other: No wheezing. Bibasilar crackles. Cardio: Rate: regular rate Rhythm: regular rhythm Other: S1-S2 present without murmur, rub, ectopy GI: Other: Abdomen soft, nondistended, nontender. Skin: General skin exam: normal color and no rashes or lesions noted Wounds: no wounds Neuro: Cranial nerves: Yes Equal, round and reactive pupils present Speech: normal speech Motor exam (neuro): 5/5 motor strength present throughout Sensory Exam: normal sensation Other: A&O x4 Extrem: Other: 1 to 2 +pitting edema to bilateral lower extremities, symmetric Psych: Mental Status: mental status grossly normal Affect: normal affect Other: Good insight and judgment, very pleasant Objective Data Vital Signs Vital Signs: Vital Signs - 24 hr 01/20/25 13:42 01/20/25 13:45 01/20/25 13:45 Temperature 97.8 F Pulse Rate 85 85 Respiratory Rate 24 H Blood Pressure 136/90 Pulse Oximetry 96 Oxygen Delivery Room Air Room Air 01/20/25 14:02 01/20/25 14:16 01/20/25 14:31 Temperature Pulse Rate 88 97 96 Respiratory Rate 21 H 20 24 H Blood Pressure 138/65 130/63 128/70 Pulse Oximetry 92 94 92 Oxygen Delivery 01/20/25 14:53 01/20/25 15:03 01/20/25 15:20 Temperature Pulse Rate 84 87 85 Respiratory Rate 17 18 21 H Blood Pressure 126/72 Pulse Oximetry 94 Oxygen Delivery 01/20/25 16:00 01/20/25 17:01 01/20/25 17:31 Temperature Pulse Rate 101 H 97 97 Respiratory Rate 22 H 22 H 23 H Blood Pressure 130/74 162/77 H 169/72 H Pulse Oximetry 94 94 94 Oxygen Delivery 01/20/25 18:01 01/20/25 18:20 01/20/25 19:11 Temperature 97.8 F Pulse Rate 87 89 94 Respiratory Rate 17 18 20 Blood Pressure 149/65 H 152/87 H 188/99 H Pulse Oximetry 94 94 96 Oxygen Delivery 01/20/25 20:00 01/20/25 21:53 01/21/25 05:09 Temperature 97.1 F L 97.2 F L Pulse Rate 94 88 80 Respiratory Rate 20 18 18 Blood Pressure 143/96 H 141/88 H Pulse Oximetry 96 92 93 Oxygen Delivery Room Air Intake/Output Intake/Output: Intake & Output 01/18/25 01/19/25 01/20/25 01/21/25 23:59 23:59 23:59 23:59 Intake Total 300 360 Output Total 900 300 Balance -600 60 Meds/Results Medications: Active Medications Generic Name Dose Route Start Last Admin Trade Name Freq PRN Reason Stop Dose Admin Acetaminophen 650 mg 01/20/25 20:31 Acetaminophen 325 Mg Tablet PO Q4H PRN Mild Pain (1-3) or Fever Albuterol/Ipratropium 3 ml 01/20/25 20:00 01/21/25 09:59 Ipratropium 0.5 Mg/Albuterol Sulfate 2.5 Mg Ampul.Neb 3 Ml INHALATION Not Given Q6HRT [facility] Alprazolam 0.25 mg 01/21/25 09:00 01/21/25 09:46 Alprazolam (*Crx) 0.25 Mg Tablet PO 0.25 mg TID ADRIANA Administration Apixaban 10 mg 01/20/25 21:00 01/21/25 09:46 Apixaban 5 Mg Tablet PO 10 mg Q12HR ADRIANA Administration Azithromycin 250 mg 01/21/25 09:00 01/21/25 09:46 Azithromycin 250 Mg Tablet PO 01/22/25 09:01 250 mg DAILY [facility] Administration Benzocaine 1 lozenge 01/20/25 20:31 Benzocaine/Menthol (*Bkc) 18 Ea Lozenge PO PRN PRN Sore Throat Benzonatate 100 mg 01/21/25 09:00 01/21/25 09:43 Benzonatate 100 Mg Capsule PO 100 mg TID [facility] Administration Calcium Carbonate 500 mg 01/21/25 09:00 01/21/25 09:46 Calcium Carbonate (Oscal) 500 Mg Tablet PO 500 mg BID ADRIANA Administration Docusate Sodium 100 mg 01/20/25 21:00 01/20/25 21:50 Docusate Sodium 100 Mg Capsule PO 100 mg QHS ADRIANA Administration Furosemide 40 mg 01/21/25 09:00 01/21/25 09:47 Furosemide Inj 40 Mg/4 Ml Vial IV PUSH 40 mg DAILY ADRIANA Administration Guaifenesin 600 mg 01/20/25 21:00 01/21/25 09:46 Guaifenesin 12 Hr 600 Mg Tabcr PO 600 mg Q12HR ADRIANA Administration Lisinopril 20 mg 01/21/25 09:00 01/21/25 09:40 Lisinopril 20 Mg Tablet PO 20 mg DAILY [facility] Administration Metoprolol Succinate 50 mg 01/21/25 09:00 01/21/25 09:40 Metoprolol Succinate Ext Rel 50 Mg Tabcr PO 50 mg DAILY ADRIANA Administration Oseltamivir Phosphate 30 mg 01/21/25 06:00 01/21/25 05:44 Oseltamivir Phosphate 30 Mg Capsule PO 01/26/25 05:59 30 mg Q12H ADRIANA Administration Pantoprazole Sodium 40 mg 01/21/25 09:00 01/21/25 09:46 Pantoprazole 40 Mg Tablet PO 40 mg BID ADRIANA Administration Potassium Chloride 10 meq 01/21/25 09:00 01/21/25 09:46 Potassium Chloride 10 Meq Er Tablet PO 10 meq DAILY ADRIANA Administration Prednisone 40 mg 01/21/25 08:00 01/21/25 09:47 Prednisone 20 Mg Tablet PO 01/26/25 07:59 40 mg DAILY@0800 ADRIANA Administration Fluticasone/Salmeterol 2 puff 01/21/25 08:00 01/21/25 09:59 Fluticasone/Salmeterol 115-21 Mcg Inhaler 1 Puff INHALATION Not Given Q12HRT ADRIANA Sodium Chloride 1 drop 01/20/25 21:25 01/21/25 09:47 Sodium Chloride 5% Op Soln 15 Ml Btl EACH EYE 1 drop Q12HR ADRIANA Administration Vitamin D 2,000 units 01/21/25 09:00 01/21/25 09:40 Cholecalciferol 1,000 Units Tablet PO 2,000 units DAILY ADRIANA Administration Radiology Results: ITS Impressions Chest X-Ray 01/20/25 15:28 IMPRESSION: Globular heart enlargement, may reflect cardiomegaly and/or pericardial effusion. Chest CTA 01/20/25 16:52 IMPRESSION: No CT evidence of acute pulmonary embolus. Mild interstitial edema versus respiratory bronchiolitis. Lingular tubular opacities may represent mucoid impaction or infection such as ABPA. 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 No large pericardial effusion, prior radiograph findings related to cardiomegaly. Large hiatal hernia with a dilated debris-filled esophagus may be related to esophageal dysmotility or prior pull-through procedure. Thyroid goiter. Labs Labs: Laboratory Results - last 24 hr 01/20/25 01/20/25 01/21/25 13:51 14:31 04:51 WBC 10.8 H 5.8 RBC 4.64 4.29 Hgb 12.0 11.4 L Hct 39.6 36.2 L MCV 85.3 84.4 MCH 25.9 L 26.6 MCHC 30.3 L 31.5 L RDW 15.5 H 15.3 H Plt Count 252 215 MPV 10.3 10.6 H Immature Gran % (Auto) 0.6 H 0.7 H Neut % (Auto) 76.4 H 79.5 H Lymph % (Auto) 14.2 L 14.4 L [place] % (Auto) 8.3 5.2 Eos % (Auto) 0.2 0.0 Baso % (Auto) 0.3 0.2 Lymph # (Auto) 1.53 0.83 L [place] # (Auto) 0.9 H 0.3 Eos # (Auto) 0.0 0.0 Baso # (Auto) 0.0 0.0 Abs Immat Gran (auto) 0.06 H 0.04 H Absolute Neuts (auto) 8.2 H 4.6 Absolute Nucleated RBC 0.000 0.000 Nucleated RBC % 0.0 0.0 PT 21.1 H INR 1.8 APTT 51.4 H Sodium 131 L 134 L Potassium 3.3 L 5.0 Chloride 88 L 95 L Carbon Dioxide 32 H 33 H Anion Gap 11 6 BUN 15 D 18 H Creatinine 0.93 1.00 Estim Creat Clear Calc 31 29 Estimated GFR 57 L 52 L Glucose 128 H 156 H Calcium 8.7 8.4 Magnesium 1.5 L Total Bilirubin 1.4 H AST 33 ALT 21 Alkaline Phosphatase 62 Troponin I 0.034 NT-Pro-B Natriuret Pep 33218 H Total Protein 8.0 Albumin 4.3 Influenza A (RT-PCR) Positive A Influenza B (RT-PCR) Negative RSV (RT-PCR) Negative SARS-CoV-2 RNA (RT-PCR) Positive A Quality VTE Prophylaxis VTE prophylaxis: pharmacologic ordered
[2025-01-21] MEDS: IPRATROPIUM 0.5 MG/ALBUTEROL SULFATE 2.5 MG AMPUL.NEB 3 ML INHALATION ×2 (13:27→21:06)
[2025-01-21] MEDS: FLUTICASONE/SALMETEROL 115-21 MCG INHALER 1 PUFF 2 PUFF INHALATION (21:07)
[2025-01-21] MEDS: DOCUSATE SODIUM 100 MG CAPSULE PO (21:25)
[2025-01-22] VITALS (11 sets, daily range): BP systolic 128–143; BP diastolic 58–69; PULSE 82–105; RESP 14–18; TEMP 35.8–36.2; O2SAT 93–98
[2025-01-22] MEDS: OSELTAMIVIR PHOSPHATE 30 MG CAPSULE PO ×2 (05:44→17:51)
[2025-01-22 06:53] LABS: Potassium 3.9 mmol/L (3.4-5.0)
[2025-01-22] MEDS: IPRATROPIUM 0.5 MG/ALBUTEROL SULFATE 2.5 MG AMPUL.NEB 3 ML INHALATION ×3 (07:34→19:58)
[2025-01-22] MEDS: FLUTICASONE/SALMETEROL 115-21 MCG INHALER 1 PUFF 2 PUFF INHALATION ×2 (07:34→20:00)
--- NOTE | 2025-01-22 08:48 | PM.IMPN ---
Progress Note: A&P Assessment and Plan (1) CHF (congestive heart failure): Qualifiers: Heart failure chronicity: chronic Heart failure type: diastolic Qualified Code(s): I50.32 - Chronic diastolic (congestive) heart failure Code(s): I50.9 - Heart failure, unspecified Status: Acute Assessment and Plan: - BNP 48914 - most recent echo (2021): Severe concentric increased left ventricular wall thickness, systolic function hyperdynamic, estimated EF greater than 70%, grade 2 diastolic dysfunction. See report for details. - currently on Lasix 20 daily will transition the patient to Lasix 40 mg IV daily - monitor I&Os and daily weights - trend renal function -improved- monitor- ct1/bun18 (2) Influenza A: Code(s): J10.1 - Influenza due to other identified influenza virus with other respiratory manifestations Status: Acute Assessment and Plan: - tested positive for influenza A on 01/20 - CXR: Globular heart enlargement, may reflect cardiomegaly and/or pericardial effusion. - CTA: No CT evidence of acute pulmonary embolus. Mild interstitial edema versus respiratory bronchiolitis. Lingular tubular opacities may represent mucoid impaction or infection such as ABPA. 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 No large pericardial effusion, prior radiograph findings related to cardiomegaly. Large hiatal hernia with a dilated debris-filled esophagus may be related to esophageal dysmotility or prior pull-through procedure. Thyroid goiter. - Tamiflu 75 mg BID-started inED but stopped per pulm. - supportive care: Tylenol p.r.n. Mucinex adriana DuoNeb p.r.n. Tessalon Perles p.r.n. Lozenge p.r.n. - monitor WBC/CBC - currently not requiring increased supplemental O2 pulm was consulted- notes reviewed. pt is stable- on ra. continue ambulation, up to the chair TID for meals (3) COVID-19: Code(s): U07.1 - COVID-19 Status: Acute Assessment and Plan: - symptom onset: 01/17 - tested positive for COVID on: 01/20 - complicating comorbidities: concurrent Flu A, COPD - remdesivir was started in ed but stopped per pulm. - see CXR/CTA results above - supportive care - monitor VS/O2 - monitor daily labs (4) COPD (chronic obstructive pulmonary disease): Qualifiers: COPD type: emphysema Emphysema type: unspecified Qualified Code(s): J43.9 - Emphysema, unspecified Code(s): J44.9 - Chronic obstructive pulmonary disease, unspecified Status: Acute Assessment and Plan: - DuoNebs [facility] - start steroids: Initially given with prednisone, will transition to oral prednisone x5 days - continue Symbicort (5) Hyperthyroidism: Code(s): E05.90 - Thyrotoxicosis, unspecified without thyrotoxic crisis or storm Status: Acute Assessment and Plan: Patient has a history of hyperthyroidism and follows with [facility] for her endocrine care. Denies having ever undergone a thyroidectomy. Last saw her on 09/12/2024 and the patient's methimazole was increased from 7.5-10 mg. Patient then had follow-up with her primary who checked a TSH on 01/10/2025 which showed a TSH of 8.24 with a T4 of 0.9. Patient was prescribed Synthroid. The patient denies any history of thyroid surgery. Synthroid and Methimazole have been held. The patient plans to reach out to her liturgical music director to alert her to the change in thyroid levels/review plan. (6) Essential (primary) hypertension: Code(s): I10 - Essential (primary) hypertension Status: Chronic Assessment and Plan: - chronic, 141/88 - continue home medications: Lisinopril, metoprolol - monitor Plan The patient was started on azithromycin outpatient due to concerns for pneumonia/bronchitis. She reports she has taken 4 pills (3 doses), will continue this course inpatient. Patient also had Lingular tubular opacities on CT which may represent mucoid impaction or infection such as ABPA. Will consult pulmonology for their review/recommendations. Diet: Heart healthy GI Prophylaxis: Not currently indicated DVT Prophylaxis: Eliquis Lines: Peripheral Code Status: DNR Time Spent With Patient Time with patient: 25 - 35 minutes Subjective Date/time seen: 01/22/25 08:48 Interval history: 89 y/o F presents here with shortness of breath with PMH of interstitial lung disease, diastolic dysfunction grade 2, osteopenia, Graves disease, hyperthyroidism, sinus arrhythmia, psoriasis, GERD, and HTN admitted with shortness of breath. She was prescribed and completed Z-Jayme on 03/13. She reports she has taken doses x3 days without relief and patient tolerated the medication poorly. The shortness of breath is also accompanied by lower extremity swelling, congestion, wheezing, diarrhea and mild nausea. She denies fever, chills, body aches, or vomiting. Denies sick contacts. The patient is on 20 mg of Lasix daily, she increased this dose to 40 mg (3 doses) in attempts to treat the swelling with minimal relief. Last echo done in 2021 which showed hyperdynamic systolic function, estimated EF greater than 70%, and grade 2 diastolic dysfunction (see report for full details). Initial VS at presentation: 97.8? F, HR 85, R 24, 136/90, and 96% on RA. ED workup showed: WBC 10.8, no anemia, INR 1.8, sodium 131, potassium 3.3, creatinine 0.93 and GFR 57, magnesium 1.5, BNP 54403, initial troponin 0.034. Patient tested positive for Influenza A and COVID. CXR showed globular heart and large mint may reflect cardiomegaly and/or pericardial effusion. Chest CTA showed no evidence of PE, mild interstitial edema versus respiratory bronchiolitis, lingular tubular opacities, chronic interstitial change, cardiomegaly, large hiatal hernia, and thyroid goiter. Pt is seen and examined. she is on RA, still sob with activities. Legs get swollen at times. 01/22 care coordination working on possible placement for rehab. Pt is stable overnight, vs reviewed. still on RA 01/22 working with pt/ot. care coordination helping with possible placement. if doing too well, may be ok to go home with home health. remains on RA. Review of Systems Review of Systems: All systems reviewed & are unremarkable except as noted in HPI and below Exam Narrative: 1+ pittin g edema, SYM. Const: General: comfortable and no acute distress Other: , female, nontoxic appearance, elderly HENMT: Face/Nose/Sinus: Normal nares present Mouth: Yes moist mucous membranes Eyes: General: appearance normal, both eyes and all related structures Sclera: sclerae normal Pupils: Equal, round and reactive pupils present EOM: EOMs intact bilaterally Resp: Effort & Inspection: normal respiratory effort Other: No wheezing. Bibasilar crackles. Cardio: Rate: regular rate Rhythm: regular rhythm Other: S1-S2 present without murmur, rub, ectopy GI: Other: Abdomen soft, nondistended, nontender. Skin: General skin exam: normal color and no rashes or lesions noted Wounds: no wounds Neuro: Cranial nerves: Yes Equal, round and reactive pupils present Speech: normal speech Motor exam (neuro): 5/5 motor strength present throughout Sensory Exam: normal sensation Other: A&O x4 Extrem: Other: 1 to 2 +pitting edema to bilateral lower extremities, symmetric Psych: Mental Status: mental status grossly normal Affect: normal affect Other: Good insight and judgment, very pleasant Objective Data Vital Signs Vital Signs: Vital Signs - 24 hr 01/21/25 13:27 01/21/25 13:27 01/21/25 13:34 Temperature Pulse Rate 80 84 Respiratory Rate 20 20 Blood Pressure Pulse Oximetry 98 Oxygen Delivery Room Air Fraction of Inspired Oxygen 21 01/21/25 14:00 01/21/25 20:00 01/21/25 21:07 Temperature 97.2 F L Pulse Rate 65 83 86 Respiratory Rate 16 20 20 Blood Pressure 127/60 Pulse Oximetry 91 92 Oxygen Delivery Room Air Fraction of Inspired Oxygen 21 01/21/25 21:10 01/21/25 21:10 01/21/25 21:20 Temperature 97.6 F Pulse Rate 86 77 83 Respiratory Rate 18 20 Blood Pressure 133/67 Pulse Oximetry 95 92 Oxygen Delivery Room Air Fraction of Inspired Oxygen 01/22/25 05:44 01/22/25 07:35 01/22/25 07:45 Temperature 97 F L Pulse Rate 105 H 84 83 Respiratory Rate 18 18 18 Blood Pressure 143/69 H Pulse Oximetry 98 Oxygen Delivery Fraction of Inspired Oxygen Intake/Output Intake/Output: Intake & Output 01/19/25 01/20/25 01/21/25 01/22/25 23:59 23:59 23:59 23:59 Intake Total 300 840 240 Output Total 900 300 300 Balance -600 540 -60 Meds/Results Medications: Active Medications Generic Name Dose Route Start Last Admin Trade Name Freq PRN Reason Stop Dose Admin Acetaminophen 650 mg 01/20/25 20:31 Acetaminophen 325 Mg Tablet PO Q4H PRN Mild Pain (1-3) or Fever Albuterol/Ipratropium 3 ml 01/20/25 20:00 01/22/25 07:34 Ipratropium 0.5 Mg/Albuterol Sulfate 2.5 Mg Ampul.Neb 3 Ml INHALATION 3 ml Q6HRT ADRIANA Administration Alprazolam 0.25 mg 01/21/25 09:00 01/21/25 19:35 Alprazolam (*Crx) 0.25 Mg Tablet PO Not Given TID ADRIANA Apixaban 10 mg 01/20/25 21:00 01/21/25 21:25 Apixaban 5 Mg Tablet PO 10 mg Q12HR ADRIANA Administration Azithromycin 250 mg 01/21/25 09:00 01/21/25 09:46 Azithromycin 250 Mg Tablet PO 01/22/25 09:01 250 mg DAILY ADRIANA Administration Benzocaine 1 lozenge 01/20/25 20:31 Benzocaine/Menthol (*Bkc) 18 Ea Lozenge PO PRN PRN Sore Throat Benzonatate 100 mg 01/21/25 09:00 01/21/25 17:47 Benzonatate 100 Mg Capsule PO 100 mg TID ADRIANA Administration Calcium Carbonate 500 mg 01/21/25 09:00 01/21/25 16:56 Calcium Carbonate (Oscal) 500 Mg Tablet PO 500 mg BID ADRIANA Administration Docusate Sodium 100 mg 01/20/25 21:00 01/21/25 21:25 Docusate Sodium 100 Mg Capsule PO 100 mg QHS ADRIANA Administration Furosemide 40 mg 01/21/25 09:00 01/21/25 09:47 Furosemide Inj 40 Mg/4 Ml Vial IV PUSH 40 mg DAILY ADRIANA Administration Guaifenesin 600 mg 01/20/25 21:00 01/21/25 21:25 Guaifenesin 12 Hr 600 Mg Tabcr PO 600 mg Q12HR ADRIANA Administration Lisinopril 20 mg 01/21/25 09:00 01/21/25 09:40 Lisinopril 20 Mg Tablet PO 20 mg DAILY ADRIANA Administration Metoprolol Succinate 50 mg 01/21/25 09:00 01/21/25 09:40 Metoprolol Succinate Ext Rel 50 Mg Tabcr PO 50 mg DAILY ADRIANA Administration Oseltamivir Phosphate 30 mg 01/21/25 06:00 01/22/25 05:44 Oseltamivir Phosphate 30 Mg Capsule PO 01/26/25 05:59 30 mg Q12H ADRIANA Administration Pantoprazole Sodium 40 mg 01/21/25 09:00 01/21/25 16:56 Pantoprazole 40 Mg Tablet PO 40 mg BID ADRIANA Administration Potassium Chloride 10 meq 01/21/25 09:00 01/21/25 09:46 Potassium Chloride 10 Meq Er Tablet PO 10 meq DAILY ADRIANA Administration Prednisone 40 mg 01/21/25 08:00 01/21/25 09:47 Prednisone 20 Mg Tablet PO 01/26/25 07:59 40 mg DAILY@0800 ADRIANA Administration Fluticasone/Salmeterol 2 puff 01/21/25 08:00 01/22/25 07:34 Fluticasone/Salmeterol 115-21 Mcg Inhaler 1 Puff INHALATION 2 puff Q12HRT ADRIANA Administration Sodium Chloride 1 drop 01/20/25 21:25 01/21/25 21:25 Sodium Chloride 5% Op Soln 15 Ml Btl EACH EYE 1 drop Q12HR ADRIANA Administration Vitamin D 2,000 units 01/21/25 09:00 01/21/25 09:40 Cholecalciferol 1,000 Units Tablet PO 2,000 units DAILY ADRIANA Administration Radiology Results: ITS Impressions Chest X-Ray 01/20/25 15:28 IMPRESSION: Globular heart enlargement, may reflect cardiomegaly and/or pericardial effusion. Chest CTA 01/20/25 16:52 IMPRESSION: No CT evidence of acute pulmonary embolus. Mild interstitial edema versus respiratory bronchiolitis. Lingular tubular opacities may represent mucoid impaction or infection such as ABPA. 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 No large pericardial effusion, prior radiograph findings related to cardiomegaly. Large hiatal hernia with a dilated debris-filled esophagus may be related to esophageal dysmotility or prior pull-through procedure. Thyroid goiter. Labs Labs: Laboratory Results - last 24 hr 01/22/25 05:43 Potassium 3.9 Quality VTE Prophylaxis VTE prophylaxis: pharmacologic ordered
[2025-01-22] MEDS: CALCIUM CARBONATE (OSCAL) 500 MG TABLET PO ×2 (08:58→17:51)
[2025-01-22] MEDS: APIXABAN 5 MG TABLET 10 MG PO ×2 (08:58→20:59)
[2025-01-22] MEDS: lisinopriL 20 MG TABLET PO (08:58)
[2025-01-22] MEDS: AZITHROMYCIN 250 MG TABLET PO (08:58)
[2025-01-22] MEDS: BENZONATATE 100 MG CAPSULE PO ×3 (08:58→17:51)
[2025-01-22] MEDS: CHOLECALCIFEROL 1,000 UNITS TABLET 2000 UNITS PO (08:58)
[2025-01-22] MEDS: POTASSIUM CHLORIDE 10 MEQ ER TABLET PO (08:58)
[2025-01-22] MEDS: guaiFENesin 12 HR 600 MG TABCR PO ×2 (08:58→20:59)
[2025-01-22] MEDS: predniSONE 20 MG TABLET 40 MG PO (08:58)
[2025-01-22] MEDS: ALPRAZolam (*CRX) 0.25 MG TABLET PO ×3 (08:58→17:51)
[2025-01-22] MEDS: FUROSEMIDE INJ 40 MG/4 ML VIAL IV PUSH (08:58)
[2025-01-22] MEDS: PANTOPRAZOLE 40 MG TABLET PO ×2 (08:58→17:51)
[2025-01-22] MEDS: METOPROLOL SUCCINATE EXT REL 50 MG TABCR PO (08:59)
[2025-01-22] MEDS: SODIUM CHLORIDE 5% OP SOLN 15 ML BTL 1 DROP EACH EYE ×2 (08:59→20:59)
[2025-01-22] MEDS: MAGNESIUM OXIDE 400 MG TABLET PO (09:01)
--- NOTE | 2025-01-22 09:16 | PM.PNPUL ---
Progress Note: A&P Assessment and Plan (1) CHF (congestive heart failure): Qualifiers: Heart failure chronicity: chronic Heart failure type: diastolic Qualified Code(s): I50.32 - Chronic diastolic (congestive) heart failure Code(s): I50.9 - Heart failure, unspecified Status: Acute (2) CHF exacerbation: Qualifiers: Heart failure type: unspecified Qualified Code(s): I50.9 - Heart failure, unspecified Code(s): I50.9 - Heart failure, unspecified Status: Acute (3) Influenza A: Code(s): J10.1 - Influenza due to other identified influenza virus with other respiratory manifestations Status: Acute (4) COVID-19: Code(s): U07.1 - COVID-19 Status: Acute (5) Abnormal CT of the chest: Code(s): R93.89 - Abnormal findings on diagnostic imaging of other specified body structures Status: Acute Assessment and Plan: This 89-year-old female has a history of heart failure with preserved ejection fraction, for which she has been receiving treatment. Her clinical history and diagnostic studies suggest an exacerbation of her congestive heart failure, likely triggered by viral infections such as influenza A and/or COVID-19. She is currently on Tamiflu and received treatment for a COVID-[address] reveals some nonspecific changes described in the radiology report, including mild bronchial wall thickening, mild patchy scattered ground-glass opacities, and tubular opacities in the peripheral lingula. Additionally, it shows very mild localized honeycombing changes and very mild peripheral reticulation, especially in the left lower lung, which are not typical for UIP but rather suggest nonspecific interstitial lung disease changes. As noted, pulmonary function testing shows no clear evidence of COPD or restrictive respiratory disease. In the past 24 hours, the patient's respiratory status has remained stable or shown some improvement. On physical examination, rhonchi are present. Plan: Discontinue prednisone at this time. Continue using short-acting bronchodilators as needed. The patient should schedule a follow-up appointment at [facility] to monitor her lung disease. Repeat pulmonary function testing will be necessary to evaluate for possible underlying obstructive airway disease. Meanwhile, she should continue using her maintenance bronchodilator and have a rescue albuterol inhaler available for use as needed. I will conclude my involvement at this point. Please feel free to contact me with any questions. Subjective Date/time seen: 01/22/25 09:16 Interval history: Patient has no new respiratory symptoms. She stated she is doing better. Remains on room air. Exam Narrative: GENERAL APPEARANCE: Well developed, well nourished, alert and cooperative, and appears to be in no acute distress while breathing room air in bed SKIN: Inspection of the skin reveals no rashes, ulcerations or petechiae. HEENT: Sclerae anicteric and conjunctivae pink and moist. Extraocular movements were intact and pupils were equal, round. Moist mucosa NECK: Supple. There was no thyroid enlargement, and no tenderness, or masses were felt. LUNGS: Crackles at bases posteriorly, rare bronchi bilaterally CARDIAC: There was a regular rate and rhythm without any murmurs, gallops, rubs. ABDOMEN: Soft and nontender with normal bowel sounds. There was no organomegaly. LYMPH NODES: No lymphadenopathy was appreciated in the neck. EXTREMITIES: No cyanosis, clubbing; 1+ edema. NEUROLOGIC: Alert and oriented x 3. Normal affect. Objective Data Vital Signs Vital Signs: Vital Signs - 24 hr 01/21/25 13:27 01/21/25 13:27 01/21/25 13:34 Temperature Pulse Rate 80 84 Respiratory Rate 20 20 Blood Pressure Pulse Oximetry 98 Oxygen Delivery Room Air Fraction of Inspired Oxygen 01/21/25 14:00 01/21/25 20:00 01/21/25 21:07 Temperature 36.2 C L Pulse Rate 65 83 86 Respiratory Rate 16 20 20 Blood Pressure 127/60 Pulse Oximetry 91 92 Oxygen Delivery Room Air Fraction of Inspired Oxygen 01/21/25 21:10 01/21/25 21:10 01/21/25 21:20 Temperature 36.4 C Pulse Rate 86 77 83 Respiratory Rate 18 20 Blood Pressure 133/67 Pulse Oximetry 95 92 Oxygen Delivery Room Air Fraction of Inspired Oxygen 01/22/25 05:44 01/22/25 07:35 01/22/25 07:45 Temperature 36.1 C L Pulse Rate 105 H 84 83 Respiratory Rate 18 18 18 Blood Pressure 143/69 H Pulse Oximetry 98 Oxygen Delivery Fraction of Inspired Oxygen 01/22/25 08:59 Temperature Pulse Rate 100 Respiratory Rate Blood Pressure Pulse Oximetry Oxygen Delivery Fraction of Inspired Oxygen Intake/Output Intake/Output: Intake & Output 03/15/25 01/20/25 01/21/25 01/22/25 23:59 23:59 23:59 23:59 Intake Total 300 840 240 Output Total 900 300 300 Balance -600 540 -60 Meds/Results Medications: Active Medications Generic Name Dose Route Start Last Admin Trade Name Freq PRN Reason Stop Dose Admin Acetaminophen 650 mg 01/20/25 20:31 Acetaminophen 325 Mg Tablet PO Q4H PRN Mild Pain (1-3) or Fever Albuterol/Ipratropium 3 ml 01/20/25 20:00 01/22/25 07:34 Ipratropium 0.5 Mg/Albuterol Sulfate 2.5 Mg Ampul.Neb 3 Ml INHALATION 3 ml Q6HRT BANG Administration Alprazolam 0.25 mg 01/21/25 09:00 01/22/25 08:58 Alprazolam (*Crx) 0.25 Mg Tablet PO 0.25 mg TID BANG Administration Apixaban 10 mg 01/20/25 21:00 01/22/25 08:58 Apixaban 5 Mg Tablet PO 10 mg Q12HR BANG Administration Benzocaine 1 lozenge 01/20/25 20:31 Benzocaine/Menthol (*Bkc) 18 Ea Lozenge PO PRN PRN Sore Throat Benzonatate 100 mg 01/21/25 09:00 01/22/25 08:58 Benzonatate 100 Mg Capsule PO 100 mg TID BANG Administration Calcium Carbonate 500 mg 01/21/25 09:00 01/22/25 08:58 Calcium Carbonate (Oscal) 500 Mg Tablet PO 500 mg BID BANG Administration Docusate Sodium 100 mg 01/20/25 21:00 01/21/25 21:25 Docusate Sodium 100 Mg Capsule PO 100 mg QHS BANG Administration Furosemide 40 mg 01/21/25 09:00 01/22/25 08:58 Furosemide Inj 40 Mg/4 Ml Vial IV PUSH 40 mg DAILY BANG Administration Guaifenesin 600 mg 01/20/25 21:00 01/22/25 08:58 Guaifenesin 12 Hr 600 Mg Tabcr PO 600 mg Q12HR BANG Administration Lisinopril 20 mg 01/21/25 09:00 01/22/25 08:58 Lisinopril 20 Mg Tablet PO 20 mg DAILY BANG Administration Magnesium Oxide 400 mg 01/22/25 09:00 01/22/25 09:01 Magnesium Oxide 400 Mg Tablet PO 400 mg DAILY BANG Administration Metoprolol Succinate 50 mg 01/21/25 09:00 01/22/25 08:59 Metoprolol Succinate Ext Rel 50 Mg Tabcr PO 50 mg DAILY BANG Administration Oseltamivir Phosphate 30 mg 01/21/25 06:00 01/22/25 05:44 Oseltamivir Phosphate 30 Mg Capsule PO 01/26/25 05:59 30 mg Q12H BANG Administration Pantoprazole Sodium 40 mg 01/21/25 09:00 01/22/25 08:58 Pantoprazole 40 Mg Tablet PO 40 mg BID BANG Administration Potassium Chloride 10 meq 01/21/25 09:00 01/22/25 08:58 Potassium Chloride 10 Meq Er Tablet PO 10 meq DAILY BANG Administration Prednisone 40 mg 01/21/25 08:00 01/22/25 08:58 Prednisone 20 Mg Tablet PO 01/26/25 07:59 40 mg DAILY@0800 BANG Administration Fluticasone/Salmeterol 2 puff 01/21/25 08:00 01/22/25 07:34 Fluticasone/Salmeterol 115-21 Mcg Inhaler 1 Puff INHALATION 2 puff Q12HRT BANG Administration Sodium Chloride 1 drop 01/20/25 21:25 01/22/25 08:59 Sodium Chloride 5% Op Soln 15 Ml Btl EACH EYE 1 drop Q12HR BANG Administration Vitamin D 2,000 units 01/21/25 09:00 01/22/25 08:58 Cholecalciferol 1,000 Units Tablet PO 2,000 units DAILY BANG Administration Radiology Results: ITS Impressions Chest X-Ray 01/20/25 15:28 IMPRESSION: Globular heart enlargement, may reflect cardiomegaly and/or pericardial effusion. Chest CTA 01/20/25 16:52 IMPRESSION: No CT evidence of acute pulmonary embolus. Mild interstitial edema versus respiratory bronchiolitis. Lingular tubular opacities may represent mucoid impaction or infection such as ABPA. 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 No large pericardial effusion, prior radiograph findings related to cardiomegaly. Large hiatal hernia with a dilated debris-filled esophagus may be related to esophageal dysmotility or prior pull-through procedure. Thyroid goiter. Labs Labs: Laboratory Results - last 24 hr 01/22/25 05:43 Potassium 3.9
--- NOTE | 2025-01-22 09:32 | P.CDI_ITS ---
CDI Query Clarification Request CHF has been documented Please specify acuity of heart failure if known. * Acute * Chronic * Acute on Chronic * Unknown The chart reflects the following: one provider documentd: Assessment and Plan (1) CHF (congestive heart failure): Qualifiers: Heart failure chronicity: chronic Heart failure type: diastolic Qualified Code(s): I50.32 - Chronic diastolic (congestive) heart failure Code(s): I50.9 - Heart failure, unspecified Status: Acute (2) CHF exacerbation: Qualifiers: Heart failure type: unspecified Qualified Code(s): I50.9 - Heart failure, unspecified The other provider documented: (1) CHF (congestive heart failure): Qualifiers: Heart failure chronicity: chronic Heart failure type: diastolic Qualified Code(s): I50.32 - Chronic diastolic (congestive) heart failure Code(s): I50.9 - Heart failure, unspecified Status: Acute Assessment and Plan: This is a 89 year old female that presents to the ER for shortness of breath. Reports she has been experiencing cold symptoms the last several days. She was started on a Z pack by her PCP. She has had worsening congestion, wheezing, swelling in her legs. She attempted to increase her lasix at home with little relief. She then contacted them 3 days ago and was prescribed a Z-Jayme on 01/17. She reports she has taken doses x3 days without relief and patient tolerated the medication poorly. The shortness of breath is also accompanied by lower extremity swelling, congestion, wheezing, diarrhea and mild nausea. She denies fever, chills, body aches, or vomiting. Denies sick contacts. The patient is on 20 mg of Lasix daily, she increased this dose to 40 mg (3 doses) in attempts to treat the swelling with minimal relief. - BNP 29717 - most recent echo (2021): Severe concentric increased left ventricular wall thickness, systolic function hyperdynamic, estimated EF greater than 70%, grade 2 diastolic dysfunction. See report for details. - currently on Lasix 20 daily will transition the patient to Lasix 40 mg IV daily <An Booth RN - Last Filed: 01/22/25 09:38> CHF has been documented Please specify acuity of heart failure if known. * Acute * Chronic * Acute on Chronic * Unknown The chart reflects the following: one provider documentd: Assessment and Plan (1) CHF (congestive heart failure): Qualifiers: Heart failure chronicity: chronic Heart failure type: diastolic Qualified Code(s): I50.32 - Chronic diastolic (congestive) heart failure Code(s): I50.9 - Heart failure, unspecified Status: Acute (2) CHF exacerbation: Qualifiers: Heart failure type: unspecified Qualified Code(s): I50.9 - Heart failure, unspecified The other provider documented: (1) CHF (congestive heart failure): Qualifiers: Heart failure chronicity: chronic Heart failure type: diastolic Qualified Code(s): I50.32 - Chronic diastolic (congestive) heart failure Code(s): I50.9 - Heart failure, unspecified Status: Acute Assessment and Plan: This is a 89 year old female that presents to the ER for shortness of breath. Reports she has been experiencing cold symptoms the last several days. She was started on a Z pack by her PCP. She has had worsening congestion, wheezing, swelling in her legs. She attempted to increase her lasix at home with little relief. She then contacted them 3 days ago and was prescribed a Z-Jayme on 01/17. She reports she has taken doses x3 days without relief and patient tolerated the medication poorly. The shortness of breath is also accompanied by lower extremity swelling, congestion, wheezing, diarrhea and mild nausea. She denies fever, chills, body aches, or vomiting. Denies sick contacts. The patient is on 20 mg of Lasix daily, she increased this dose to 40 mg (3 doses) in attempts to treat the swelling with minimal relief. - BNP 14579 - most recent echo (2021): Severe concentric increased left ventricular wall thickness, systolic function hyperdynamic, estimated EF greater than 70%, grade 2 diastolic dysfunction. See report for details. - currently on Lasix 20 daily will transition the patient to Lasix 40 mg IV daily <Rebeka Argueta APRN - Last Filed: 01/22/25 11:36> Provider Comments acute <Rebeka Argueta APRN - Last Filed: 01/22/25 11:36>
[2025-01-22] MEDS: DOCUSATE SODIUM 100 MG CAPSULE PO (20:59)
[2025-01-23] VITALS (12 sets, daily range): BP systolic 115–139; BP diastolic 57–72; PULSE 87–106; RESP 14–18; TEMP 36.2–36.4; O2SAT 95–99
--- NOTE | 2025-01-23 | ECHO_ITS ---
Patient Info Name: Nestor Carter Age: 89 years : 1935 Gender: Female Ht: 61 in Wt: 143 lbs BSA: 1.69 m2 HR: 105 bpm BP: 115 / 57 mmHg Technical Quality: Fair Exam Date: 01/23/2025 2:28 PM Exam Location: Echo Lab Patient Status: Inpatient Admit Date: 01/21/2025 Staff Ordering Physician: Lindsey Winkler PA-C [employer] Welder: Yaneth Kaye RDCS Attending Provider: Lindsey Winkler PA-C Referring Physician: Peterson AHUJA; Exam Type: CA echo doppler color flow Study Info Indications - CHF EXACERBATION Complete two-dimensional, color flow and Doppler transthoracic echocardiogram is performed. Summary 1. Complete two-dimensional, color flow and Doppler transthoracic echocardiogram is performed. 2. Left ventricular chamber dimension is normal. 3. Left ventricular systolic function is normal, estimated at 60-65%. 4. There is mild concentric increased left ventricular wall thickness. 5. The left ventricular diastolic function is abnormal. 6. E/e' 22 is elevated. 7. Right ventricular chamber dimension is moderately enlarged. 8. Right ventricular systolic function is mildly reduced and with borderline TAPSE 1.7 cm. 9. Left atrial chamber dimension is severely enlarged. 10. Right atrial chamber dimension is severely enlarged. 11. There is moderate aortic valve sclerosis. 12. There is mild aortic valve stenosis by planimetry at 1.5 cm2 and mean gradient 7 mmHg. 13. The mitral valve has severely calcified annulus. 14. There is mild mitral valve regurgitation. 15. There is trace tricuspid valve regurgitation. 16. Severe pulmonary hypertension, estimated pulmonary arterial systolic pressure is 71 mmHg. 17. There is trace pulmonic regurgitation. 18. Dilated inferior vena cava with <50% collapse upon inspiration consistent with significantly elevated right atrial pressure, 15 mmHg. Left Ventricle E/e' 22 is elevated. Left ventricular chamber dimension is normal. Left ventricular systolic function is normal, estimated at 60-65%. There is mild concentric increased left ventricular wall thickness. The left ventricular diastolic function is abnormal. Right Ventricle Right ventricular systolic function is mildly reduced and with borderline TAPSE 1.7 cm. Right ventricular chamber dimension is moderately enlarged. Left Atria Left atrial chamber dimension is severely enlarged. Right Atria Right atrial chamber dimension is severely enlarged. Aortic Valve There is mild aortic valve stenosis by planimetry at 1.5 cm2 and mean gradient 7 mmHg. The aortic valve is trileaflet. There is moderate aortic valve sclerosis. There is no aortic valve regurgitation. Pulmonic Valve There is trace pulmonic regurgitation. Mitral Valve The mitral valve has severely calcified annulus. There is no mitral valve stenosis. There is mild mitral valve regurgitation. Tricuspid Valve There is trace tricuspid valve regurgitation. Severe pulmonary hypertension, estimated pulmonary arterial systolic pressure is 71 mmHg. Pericardium/Pleural There is no pericardial effusion. Inferior Vena Cava Dilated inferior vena cava with <50% collapse upon inspiration consistent with significantly elevated right atrial pressure, 15 mmHg. Aorta The aortic root size at the sinus of Valsalva is normal. Left Ventricular Outflow Tract Name Value Normal LVOT Doppler LVOT Peak Gradient 3 mmHg LVOT Mean Gradient 2 mmHg LVOT VTI 18 cm LVOT VTI/AV VTI Ratio 0.7 Pulmonic Valve Name Value Normal RVOT Doppler RVOT Peak Gradient 1 mmHg PV Doppler PV Peak Gradient 2 mmHg Mitral Valve Name Value Normal MV Doppler MV Decel [place] 967 cm/s2 MV PHT 44 ms MV Area (PHT) 5.0 cm2 4.0-5.0 MV Diastolic Function MV E Peak Velocity 148 cm/s MV A Peak Velocity 1 cm/s MV E/A 204.2 MV Decel Time 153 ms Tricuspid Valve Name Value Normal TV Regurgitation Doppler TR Peak Velocity 373 cm/s TR Peak Gradient 27 mmHg Estimated PAP/RSVP RA Pressure 15 mmHg <=5 PA Systolic Pressure 71 mmHg <36 RV Systolic Pressure 71 mmHg <36 Aortic Valve Name Value Normal AV 2D/MM AV Area (Planimetry) 1.5 cm2 AV Doppler AV Peak Velocity 143 cm/s AV Peak Gradient 7 mmHg AV Mean Gradient 4 mmHg AV VTI 24 cm Ventricles Name Value Normal LV Dimensions 2D/MM IVS Diastolic Thickness (2D) 1.2 cm 0.6-1.0 LVID Diastole (2D) 3.3 cm 3.8-5.2 LVIW Diastolic Thickness (2D) 1.1 cm 0.6-0.9 LVID Systole (2D) 2.1 cm 2.2-3.5 LV Mass (2D Cubed) 123.35 g 67.00-162.00 LV Mass Index (2D Cubed) 73 g/m2 43-95 Relative Wall Thickness (2D) 0.67 LV Fractional Shortening/Ejection Fraction 2D/MM LV Fractional Shortening (2D) 38 % 27-45 LV EF (2D Teicholz) 70 % 54-74 LV Diastolic Volume (4C MOD) 21 ml LV EF (4C MOD) 54 % LV Diastolic Volume (2C MOD) 26 ml LV EF (2C MOD) 51 % LV Diastolic Volume (BP MOD) 24 ml 46-106 LV Diastolic Volume Index (BP MOD) 14 ml/m2 29-61 LV Systolic Volume (BP MOD) 11 ml 14-42 LV Systolic Volume Index (BP MOD) 7 ml/m2 8-24 LV EF (BP MOD) 53 % 54-74 LV Diastolic Length (4C) 6.0 cm LV Systolic Length (4C) 5.4 cm LV Stroke Volume (4C MOD) 11 ml Report Signatures
[2025-01-23] MEDS: IPRATROPIUM 0.5 MG/ALBUTEROL SULFATE 2.5 MG AMPUL.NEB 3 ML INHALATION ×4 (01:59→20:56)
[2025-01-23] MEDS: OSELTAMIVIR PHOSPHATE 30 MG CAPSULE PO ×2 (05:29→16:56)
[2025-01-23] MEDS: FLUTICASONE/SALMETEROL 115-21 MCG INHALER 1 PUFF 2 PUFF INHALATION ×2 (07:20→20:58)
[2025-01-23] MEDS: FUROSEMIDE INJ 40 MG/4 ML VIAL IV PUSH (09:07)
[2025-01-23] MEDS: lisinopriL 20 MG TABLET PO (09:07)
[2025-01-23] MEDS: METOPROLOL SUCCINATE EXT REL 50 MG TABCR PO (09:07)
[2025-01-23] MEDS: CHOLECALCIFEROL 1,000 UNITS TABLET 2000 UNITS PO (09:07)
[2025-01-23] MEDS: MAGNESIUM OXIDE 400 MG TABLET PO (09:07)
[2025-01-23] MEDS: CALCIUM CARBONATE (OSCAL) 500 MG TABLET PO ×2 (09:07→16:55)
[2025-01-23] MEDS: POTASSIUM CHLORIDE 10 MEQ ER TABLET PO (09:07)
[2025-01-23] MEDS: guaiFENesin 12 HR 600 MG TABCR PO ×2 (09:07→20:28)
[2025-01-23] MEDS: predniSONE 20 MG TABLET 40 MG PO (09:07)
[2025-01-23] MEDS: BENZONATATE 100 MG CAPSULE PO ×3 (09:07→16:55)
[2025-01-23] MEDS: APIXABAN 5 MG TABLET 10 MG PO ×2 (09:07→20:28)
[2025-01-23] MEDS: PANTOPRAZOLE 40 MG TABLET PO ×2 (09:08→16:55)
[2025-01-23] MEDS: ALPRAZolam (*CRX) 0.25 MG TABLET PO ×3 (09:08→16:56)
[2025-01-23] MEDS: SODIUM CHLORIDE 5% OP SOLN 15 ML BTL 1 DROP EACH EYE ×2 (09:08→20:33)
--- NOTE | 2025-01-23 10:30 | PM.IMPN ---
Progress Note: A&P Assessment and Plan (1) CHF (congestive heart failure): Qualifiers: Heart failure chronicity: chronic Heart failure type: diastolic Qualified Code(s): I50.32 - Chronic diastolic (congestive) heart failure Code(s): I50.9 - Heart failure, unspecified Status: Acute Assessment and Plan: - Symptoms: SOB and lower extremity swelling - Current medications: lasix 40 mg IV daily (home lasix 20 mg daily), metoprolol 50 mg daily, lisinopril 20 mg daily - BNP 99151 - EKG afib rate controlled with HR 84 - most recent echo (2021): Severe concentric increased left ventricular wall thickness, systolic function hyperdynamic, estimated EF greater than 70%, grade 2 diastolic dysfunction. See report for details. - echo ordered - Monitor vital signs, I&Os, BUN/creatinine, daily weights, neuro status and patient is a fall risk - Monitor serum electrolytes, Keep serum Potassium>4 and serum Magnesium>2 and CBC (2) Influenza A: Code(s): J10.1 - Influenza due to other identified influenza virus with other respiratory manifestations Status: Acute Assessment and Plan: - tested positive for influenza A on 01/20 - CXR: Globular heart enlargement, may reflect cardiomegaly and/or pericardial effusion. - CTA: No CT evidence of acute pulmonary embolus. Mild interstitial edema versus respiratory bronchiolitis. Lingular tubular opacities may represent mucoid impaction or infection such as ABPA. 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 No large pericardial effusion, prior radiograph findings related to cardiomegaly. Large hiatal hernia with a dilated debris-filled esophagus may be related to esophageal dysmotility or prior pull-through procedure. Thyroid goiter. - Tamiflu 75 mg BID-started in ED but stopped per pulm. - monitor WBC/CBC - currently not requiring increased supplemental O2 - pulm was consulted Continue using short-acting bronchodilators as needed. Schedule a follow-up appointment at [facility] to monitor her lung disease. Repeat pulmonary function testing will be necessary to evaluate for possible underlying obstructive airway disease. Continue using her maintenance bronchodilator and have a rescue albuterol inhaler available for use as needed. Patient remains stable on room air. She continues to endorse shortness of breath, worse with ambulation. (3) COVID-19: Code(s): U07.1 - COVID-19 Status: Acute Assessment and Plan: - symptom onset: 01/17 - tested positive for COVID on: 01/20 - complicating comorbidities: concurrent Flu A, COPD - see imaging above - remdesivir was started in ed but stopped per pulm. - supportive care - monitor VS/O2 - monitor daily labs (4) COPD (chronic obstructive pulmonary disease): Qualifiers: COPD type: emphysema Emphysema type: unspecified Qualified Code(s): J43.9 - Emphysema, unspecified Code(s): J44.9 - Chronic obstructive pulmonary disease, unspecified Status: Acute Assessment and Plan: - DuoNebs [facility] - start steroids: Initially given with prednisone, will transition to oral prednisone x5 days likely the reason for new leukocytosis on cbc - continue Symbicort (5) Hyperthyroidism: Code(s): E05.90 - Thyrotoxicosis, unspecified without thyrotoxic crisis or storm Status: Acute Assessment and Plan: Patient has a history of hyperthyroidism and follows with [facility] for her endocrine care. Last seen on 09/12/2024 and the patient's methimazole was increased from 7.5-10 mg. Patient then had follow-up with her primary who checked a TSH on 01/10/2025 which showed a TSH of 8.24 with a T4 of 0.9. Patient was prescribed Synthroid. The patient denies any history of thyroid surgery. Synthroid and Methimazole have been held. 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 (6) Essential (primary) hypertension: Code(s): I10 - Essential (primary) hypertension Status: Chronic Assessment and Plan: - chronic - continue home medications: Lisinopril, metoprolol - blood pressures remain stable, continue to monitor Plan Diet: Heart healthy GI Prophylaxis: Not currently indicated DVT Prophylaxis: Eliquis Lines: Peripheral Code Status: DNR Time Spent With Patient Time with patient: 25 - 35 minutes Subjective Date/time seen: 01/23/25 10:30 Interval history: 89 y/o F presents here with shortness of breath with PMH of interstitial lung disease, diastolic dysfunction grade 2, osteopenia, Graves disease, hyperthyroidism, sinus arrhythmia, psoriasis, GERD, and HTN admitted with shortness of breath. Patient is pleasant sitting up in her chair. She continues to endorse shortness of breath but notes that her lower extremity edema has much improved. She has no other complaints denies chest pain, palpitations, nausea/vomiting, and abdominal pain. Review of Systems Review of Systems: All systems reviewed & are unremarkable except as noted in HPI and below Exam Narrative: AF HR 98 RR 18 Spo2 99 BP 139/72 General: female in no acute respiratory distress who is nontoxic appearing, sitting up in chair HEENT: Normocephalic. Atraumatic. Extraocular movement intact. Sclera clear and anicteric. No facial asymmetry. Chest: Lungs clear to the left upper with slight coarseness to the right upper and rhonchi to the bases on auscultation bilaterally. CV: Heart was regular rate and rhythm. S1-S2. No murmurs, gallops, or rubs. Abd: Abdomen was soft. Nontender. Nondistended. Positive bowel sounds. Ext: No clubbing, cyanosis. DP pulses bilaterally. Bilateral lower extremity edema. Moose hose in place. Neuro: Patient is alert and oriented x3. Speech is clear. Objective Data Vital Signs Vital Signs: Vital Signs - 24 hr 01/22/25 11:23 01/22/25 12:55 01/22/25 13:51 Temperature Pulse Rate 82 Respiratory Rate 18 Blood Pressure Pulse Oximetry Oxygen Delivery Room Air Room Air Fraction of Inspired Oxygen 01/22/25 13:59 01/22/25 14:00 01/22/25 20:00 Temperature 96.4 F L Pulse Rate 84 83 95 Respiratory Rate 18 14 16 Blood Pressure 128/58 L Pulse Oximetry 97 Oxygen Delivery Fraction of Inspired Oxygen 01/22/25 20:00 01/22/25 20:01 01/22/25 20:09 Temperature Pulse Rate 89 90 Respiratory Rate 18 16 Blood Pressure Pulse Oximetry 94 93 Oxygen Delivery Room Air Room Air Fraction of Inspired Oxygen 21 01/22/25 20:26 01/23/25 01:59 01/23/25 02:07 Temperature 97.2 F L Pulse Rate 89 101 H 106 H Respiratory Rate 18 16 16 Blood Pressure 128/62 Pulse Oximetry 94 Oxygen Delivery Fraction of Inspired Oxygen 01/23/25 05:45 01/23/25 07:20 01/23/25 07:28 Temperature 97.6 F Pulse Rate 100 97 95 Respiratory Rate 18 18 18 Blood Pressure 115/57 L Pulse Oximetry 95 Oxygen Delivery Fraction of Inspired Oxygen 01/23/25 09:07 Temperature Pulse Rate 96 Respiratory Rate Blood Pressure Pulse Oximetry Oxygen Delivery Fraction of Inspired Oxygen Intake/Output Intake/Output: Intake & Output 01/20/25 01/21/25 01/22/25 01/23/25 23:59 23:59 23:59 23:59 Intake Total 518 097 8244 1280 Output Total 900 300 300 0 Balance -600 313 893 6841 Meds/Results Medications: Active Medications Generic Name Dose Route Start Last Admin Trade Name Freq PRN Reason Stop Dose Admin Acetaminophen 650 mg 01/20/25 20:31 Acetaminophen 325 Mg Tablet PO Q4H PRN Mild Pain (1-3) or Fever Albuterol/Ipratropium 3 ml 01/20/25 20:00 01/23/25 07:20 Ipratropium 0.5 Mg/Albuterol Sulfate 2.5 Mg Ampul.Neb 3 Ml INHALATION 3 ml Q6HRT BANG Administration Alprazolam 0.25 mg 01/21/25 09:00 01/23/25 09:08 Alprazolam (*Crx) 0.25 Mg Tablet PO 0.25 mg TID BANG Administration Apixaban 10 mg 01/20/25 21:00 01/23/25 09:07 Apixaban 5 Mg Tablet PO 10 mg Q12HR BANG Administration Benzocaine 1 lozenge 01/20/25 20:31 Benzocaine/Menthol (*Bkc) 18 Ea Lozenge PO PRN PRN Sore Throat Benzonatate 100 mg 01/21/25 09:00 01/23/25 09:07 Benzonatate 100 Mg Capsule PO 100 mg TID BANG Administration Calcium Carbonate 500 mg 01/21/25 09:00 01/23/25 09:07 Calcium Carbonate (Oscal) 500 Mg Tablet PO 500 mg BID BANG Administration Docusate Sodium 100 mg 01/20/25 21:00 01/22/25 20:59 Docusate Sodium 100 Mg Capsule PO 100 mg QHS BANG Administration Furosemide 40 mg 01/21/25 09:00 01/23/25 09:07 Furosemide Inj 40 Mg/4 Ml Vial IV PUSH 40 mg DAILY BANG Administration Guaifenesin 600 mg 01/20/25 21:00 01/23/25 09:07 Guaifenesin 12 Hr 600 Mg Tabcr PO 600 mg Q12HR BANG Administration Lisinopril 20 mg 01/21/25 09:00 01/23/25 09:07 Lisinopril 20 Mg Tablet PO 20 mg DAILY BANG Administration Magnesium Oxide 400 mg 01/22/25 09:00 01/23/25 09:07 Magnesium Oxide 400 Mg Tablet PO 400 mg DAILY BANG Administration Metoprolol Succinate 50 mg 01/21/25 09:00 01/23/25 09:07 Metoprolol Succinate Ext Rel 50 Mg Tabcr PO 50 mg DAILY BANG Administration Oseltamivir Phosphate 30 mg 01/21/25 06:00 01/23/25 05:29 Oseltamivir Phosphate 30 Mg Capsule PO 01/26/25 05:59 30 mg Q12H BANG Administration Pantoprazole Sodium 40 mg 01/21/25 09:00 01/23/25 09:08 Pantoprazole 40 Mg Tablet PO 40 mg BID BANG Administration Potassium Chloride 10 meq 01/21/25 09:00 01/23/25 09:07 Potassium Chloride 10 Meq Er Tablet PO 10 meq DAILY BANG Administration Prednisone 40 mg 01/21/25 08:00 01/23/25 09:07 Prednisone 20 Mg Tablet PO 01/26/25 07:59 40 mg DAILY@0800 BANG Administration Fluticasone/Salmeterol 2 puff 01/21/25 08:00 01/23/25 07:20 Fluticasone/Salmeterol 115-21 Mcg Inhaler 1 Puff INHALATION 2 puff Q12HRT BANG Administration Sodium Chloride 1 drop 01/20/25 21:25 01/23/25 09:08 Sodium Chloride 5% Op Soln 15 Ml Btl EACH EYE 1 drop Q12HR BANG Administration Vitamin D 2,000 units 01/21/25 09:00 01/23/25 09:07 Cholecalciferol 1,000 Units Tablet PO 2,000 units DAILY BANG Administration Radiology Results: ITS Impressions Chest X-Ray 01/20/25 15:28 IMPRESSION: Globular heart enlargement, may reflect cardiomegaly and/or pericardial effusion. Chest CTA 01/20/25 16:52 IMPRESSION: No CT evidence of acute pulmonary embolus. Mild interstitial edema versus respiratory bronchiolitis. Lingular tubular opacities may represent mucoid impaction or infection such as ABPA. 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 No large pericardial effusion, prior radiograph findings related to cardiomegaly. Large hiatal hernia with a dilated debris-filled esophagus may be related to esophageal dysmotility or prior pull-through procedure. Thyroid goiter. Quality VTE Prophylaxis VTE prophylaxis: pharmacologic ordered
[2025-01-23 11:27] LABS: Hematocrit 34.9 % (37.0-47.0); Hemoglobin 10.4 g/dL (12.0-15.0); Mean Corpuscular HGB Conc 29.8 g/dl (32-36); Mean Corpuscular Hemoglobin 26.1 pg (26-34); Mean Corpuscular Volume 87.5 fl (80-100); Mean Platelet Volume 10.3 fl (7.4-10.4); Platelet Count Result 286 k/mm3 (150-375); Red Blood Count 3.99 M/mm3 (4.2-5.4); Red Cell Distribution Width 15.3 % (11.5-14.5); White Blood Count 12.8 K/mm3 (4.5-10.0)
[2025-01-23 11:43] LABS: Alanine Aminotransferase 21 U/L (6-35); Albumin Level 3.6 g/dL (3.5-5.1); Alkaline Phosphatase 50 U/L (38-126); Anion Gap 7 mmol/L (4-12); Aspartate Amino Transferase 27 U/L (14-36); Bilirubin,Total 0.6 mg/dL (0.2-1.3); Blood Urea Nitrogen 24 mg/dL (7-17); Calcium 8.3 mg/dL (8.4-10.2); Carbon Dioxide 34 mmol/L (22-30); Chloride 89 mmol/L (98-107); Estimated CRCL calculation 31 ml/min; Estimated Glomerular Filt Rate 56; Glucose 121 mg/dL (65-110); Potassium 4.2 mmol/L (3.4-5.0); Sodium 130 mmol/L (137-145)
[2025-01-23] MEDS: DOCUSATE SODIUM 100 MG CAPSULE PO (20:28)
[2025-01-24] VITALS (8 sets, daily range): BP systolic 121–130; BP diastolic 57–64; PULSE 71–100; RESP 14–18; TEMP 36.3–36.6; O2SAT 94–98
[2025-01-24 06:56] LABS: Hematocrit 35.9 % (37.0-47.0); Hemoglobin 10.8 g/dL (12.0-15.0); Mean Corpuscular HGB Conc 30.1 g/dl (32-36); Mean Corpuscular Hemoglobin 25.9 pg (26-34); Mean Corpuscular Volume 86.1 fl (80-100); Mean Platelet Volume 10.2 fl (7.4-10.4); Platelet Count Result 295 k/mm3 (150-375); Red Blood Count 4.17 M/mm3 (4.2-5.4); Red Cell Distribution Width 15.2 % (11.5-14.5); White Blood Count 10.8 K/mm3 (4.5-10.0)
[2025-01-24 07:08] LABS: Alanine Aminotransferase 21 U/L (6-35); Albumin Level 3.6 g/dL (3.5-5.1); Alkaline Phosphatase 51 U/L (38-126); Anion Gap 6 mmol/L (4-12); Aspartate Amino Transferase 27 U/L (14-36); Bilirubin,Total 0.7 mg/dL (0.2-1.3); Blood Urea Nitrogen 26 mg/dL (7-17); Calcium 8.9 mg/dL (8.4-10.2); Carbon Dioxide 36 mmol/L (22-30); Chloride 91 mmol/L (98-107); Estimated CRCL calculation 27 ml/min; Estimated Glomerular Filt Rate 48; Glucose 102 mg/dL (65-110); Potassium 4.1 mmol/L (3.4-5.0); Sodium 133 mmol/L (137-145)
[2025-01-24] MEDS: lisinopriL 20 MG TABLET PO (08:44)
[2025-01-24] MEDS: BENZONATATE 100 MG CAPSULE PO ×2 (08:44→13:09)
[2025-01-24] MEDS: CHOLECALCIFEROL 1,000 UNITS TABLET 2000 UNITS PO (08:44)
[2025-01-24] MEDS: ALPRAZolam (*CRX) 0.25 MG TABLET PO ×2 (08:44→13:09)
[2025-01-24] MEDS: APIXABAN 5 MG TABLET 10 MG PO (08:44)
[2025-01-24] MEDS: MAGNESIUM OXIDE 400 MG TABLET PO (08:44)
[2025-01-24] MEDS: PANTOPRAZOLE 40 MG TABLET PO (08:44)
[2025-01-24] MEDS: POTASSIUM CHLORIDE 10 MEQ ER TABLET PO (08:45)
[2025-01-24] MEDS: guaiFENesin 12 HR 600 MG TABCR PO (08:45)
[2025-01-24] MEDS: METOPROLOL SUCCINATE EXT REL 50 MG TABCR PO (08:45)
[2025-01-24] MEDS: OSELTAMIVIR PHOSPHATE 30 MG CAPSULE PO (08:46)
[2025-01-24] MEDS: FUROSEMIDE INJ 40 MG/4 ML VIAL IV PUSH (08:46)
[2025-01-24] MEDS: predniSONE 20 MG TABLET 40 MG PO (08:46)
[2025-01-24] MEDS: CALCIUM CARBONATE (OSCAL) 500 MG TABLET PO (08:46)
[2025-01-24] MEDS: FLUTICASONE/SALMETEROL 115-21 MCG INHALER 1 PUFF 2 PUFF INHALATION (08:57)
[2025-01-24] MEDS: IPRATROPIUM 0.5 MG/ALBUTEROL SULFATE 2.5 MG AMPUL.NEB 3 ML INHALATION ×2 (09:01→14:30)
[2025-01-24] MEDS: SODIUM CHLORIDE 5% OP SOLN 15 ML BTL 1 DROP EACH EYE (09:10)
[2025-01-24 10:01] LABS: T4 Thyroxine 5.93 ug/dL (5.53-11.0)
[2025-01-24 10:15] LABS: Total Triiodothyronine (T3) 0.79 NG/ML (0.97-1.69)
--- NOTE | 2025-01-24 14:42 | P.DS_ITS ---
DS: Admitting Diagnosis Discharge Date 01/24/2025 Admitting Diagnosis Congestive heart failure Influenza a covid COPD Hyperthyroidism Hypertension DS: Discharge Diagnosis Discharge Diagnosis (1) CHF (congestive heart failure): Qualifiers: Heart failure chronicity: chronic Heart failure type: diastolic Qualified Code(s): I50.32 - Chronic diastolic (congestive) heart failure Code(s): I50.9 - Heart failure, unspecified Status: Acute (2) Influenza A: Code(s): J10.1 - Influenza due to other identified influenza virus with other respiratory manifestations Status: Acute (3) COVID-19: Code(s): U07.1 - COVID-19 Status: Acute (4) COPD (chronic obstructive pulmonary disease): Qualifiers: COPD type: emphysema Emphysema type: unspecified Qualified Code(s): J43.9 - Emphysema, unspecified Code(s): J44.9 - Chronic obstructive pulmonary disease, unspecified Status: Acute (5) Hyperthyroidism: Code(s): E05.90 - Thyrotoxicosis, unspecified without thyrotoxic crisis or storm Status: Acute (6) Essential (primary) hypertension: Code(s): I10 - Essential (primary) hypertension Status: Chronic DS: Summary Hospital Course Reason for hospitalization: Congestive heart failure Influenza a covid COPD Hyperthyroidism Hypertension Hospital Course: 89 y/o F presents here with shortness of breath with PMH of interstitial lung disease, diastolic dysfunction grade 2, osteopenia, Graves disease, hyperthyroidism, sinus arrhythmia, psoriasis, GERD, and HTN admitted with shortness of breath. Vitals remained stable. Patient positive for covid and flu. Started on tamiflu and remdesivir however these were stopped by pulmonology following their consult. CXR showed globular heart enlargement, may reflect cardiomegaly and/or pericardial effusion. CTA showed no CT evidence of acute pulmonary embolus. However there was mild interstitial edema versus respiratory bronchiolitis, lingular tubular opacities may represent mucoid impaction or infection such as ABPA, chronic interstitial change, likely UIP, no large pericardial effusion, prior radiograph findings related to cardiomegaly, and a large hiatal hernia with a dilated debris-filled esophagus may be related to esophageal dysmotility or prior pull-through procedure. Pulmonology was consulted. Per pulmonology patient is to remain on short acting bronchodilators as needed and continue her maintenance bronchodilator and rescue inhaler. She is to follow up in the office in 3 weeks and will need PFTs performed. During admission patient was also treated for CHF due to the shortness of breath with lower extremity edema and imaging. Echo obtained and showed LVEF 60-65% and severe pulmonary hypertension. She remains on her home medications for heart failure. Patient has a history of hyperthyroidism and follows with [facility] for her endocrine care. Last seen on 09/12/2024 and the patient's methimazole was increased from 7.5-10 mg. Patient then had follow-up with her primary who checked a TSH on 01/10/2025 and prescribed Synthroid. Medications were held during her admission. 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 Wing who states that patient is to continue holding both the Synthroid and the methimazole for 2 weeks and obtain a thyroid panel after that time. Patient has follow-up with Dr. Wing in the office following this blood draw for further medication changes. Prior discharge return to patient's room to discuss these with her and she states understanding. At time of discharge patient has no complaints denying chest pain, shortness a breath, palpitations, nausea/vomiting, abdominal pain, and dizziness/lightheadedness. Patient discharged home with home health in a stable condition. She has a follow-up with her primary care provider in 1 week, pulmonology in 3 weeks, and endocrinology as scheduled. Status at Discharge Functional status at discharge: uses cane/walker Time Spent with Patient Time attestation: Total time spent providing and/or coordinating discharge services: Time spent: Greater than 30 minutes Exam Narrative: AF HR 90 RR 18 SPO2 98 BP 121/57 General: female in no acute respiratory distress who is nontoxic appearing, sitting up in chair HEENT: Normocephalic. Atraumatic. Extraocular movement intact. Sclera clear and anicteric. No facial asymmetry. Chest: Lungs clear to the uppers with slight rhonchi to the bases on auscultation bilaterally. CV: Heart was regular rate and rhythm. S1-S2. No murmurs, gallops, or rubs. Abd: Abdomen was soft. Nontender. Nondistended. Positive bowel sounds. Ext: No clubbing, cyanosis. DP pulses bilaterally. Bilateral lower extremity edema. Moose hose in place. Neuro: Patient is alert and oriented x3. Speech is clear. DS: Data Data Completed and Pending Completed studies during hospitalization: chest cta chest xr Labs on day of discharge: Labs from last 24 hours 01/24/25 05:46 WBC 10.8 H RBC 4.17 L Hgb 10.8 L Hct 35.9 L MCV 86.1 MCH 25.9 L MCHC 30.1 L RDW 15.2 H Plt Count 295 MPV 10.2 Sodium 133 L Potassium 4.1 Chloride 91 L Carbon Dioxide 36 H Anion Gap 6 BUN 26 H Creatinine 1.07 H Estim Creat Clear Calc 27 Estimated GFR 48 L Glucose 102 Calcium 8.9 Total Bilirubin 0.7 AST 27 ALT 21 Alkaline Phosphatase 51 Total Protein 7.0 Albumin 3.6 TSH (Reflex) 2.340 Thyroxine (T4) 5.93 Total T3 0.79 L Discharge Plan Discharge Attending physician on discharge: Mary Dominguez Consulting providers: Ady Fofana Discharging Clinician: Lindsey Winkler Anticipated Discharge Date/Time: 01/24/25 14:22 Patient Disposition: Home Health Service Activity: as tolerated Diet: as tolerated and heart healthy Discharge Instructions: Discharge disposition: Patient admitted to the hospital for CHF exacerbation Take home medications as prescribed Maintain a cardiac diet, 2 g sodium, do not over hydrate Remain active Monitor urine output Daily weights, if you gain more than 3 lb within 1 day or 5 lb in 1 week notify your primary care provider Discussed thyroid panel and medications with your endocrinologists Dr. Wing Hold Synthroid and methimazole at this time Dr. Wing has ordered thyroid panel for 2 weeks at [facility] Follow up with Dr. Wing in the office following these results Patient diagnosed with influenza A and Covid during admission Evaluated by pulmonology Continue using short-acting bronchodilators as needed. Schedule a follow-up appointment at the [facility] to monitor her lung disease. Repeat pulmonary function testing will be necessary to evaluate for possible underlying obstructive airway disease. Continue using her maintenance bronchodilator and have a rescue albuterol inhaler available for use as needed. Take medications as prescribed Monitor blood pressures Take caution while standing, rising, or moving Change positions slowly taking a break between each position change If you standing feel dizzy sit back down and take a break Encouraged to continue with yearly vaccinations Return to the emergency department if he developed sudden shortness of breath, chest pain, nausea, vomiting, upset stomach or intractable diarrhea Return to the emergency department if you develop fever greater than 101.5 Follow-up with the primary care physician within 1-2 weeks Per Care Coordination: Patient to be discharged with [facility]. # [phone]. Office will call patient to arrange first visit. Thank you for choosing [facility] for your healthcare needs Patient Instructions: Apixaban (By mouth), Heart Failure (GEN), COVID-19 (Coronavirus Disease 2019) (DC), RSV (Respiratory Syncytial Virus) Infection (DC) Patient Language: [place] Stand Alone Forms: General Discharge Information Follow-up/Referrals: Oliverio Nelson MD [Primary Care Provider] - 1 Week Ady Fofana MD [Physician] - Call for Appointment Discharge Medications: New magnesium oxide 400 mg (241.3 mg magnesium) Tablet 400 mg PO DAILY Qty: 30 0RF Continued calcium carbonate 600 mg calcium (1,500 mg) tablet 600 mg PO BID Patient Comments: 1200, HS cholecalciferol (vitamin D3) 50 mcg (2,000 unit) capsule 50 mcg PO DAILY sodium chloride 5 % drops 1 drp EACH EYE BID docusate sodium [Stool Softener] 100 mg capsule 100 mg PO QHS Eliquis 5 mg tablet 10 mg PO BID metoprolol succinate 50 mg tablet extended release 24 hr 50 mg PO DAILY Qty: 90 0RF potassium chloride 10 mEq capsule, extended release 10 meq PO DAILY Qty: 30 0RF budesonide-formoterol [Symbicort] 160-4.5 mcg/actuation HFA aerosol inhaler 2 puff inhalation Q12H albuterol sulfate [Ventolin HFA] 90 mcg/actuation HFA aerosol inhaler 1 inh inhalation Q4H PRN (Reason: shortness of breath or wheezing) Qty: 8.5 3RF alprazolam [Xanax] 0.25 mg tablet 0.25 mg PO TID Qty: 90 1RF lisinopril 20 mg tablet See Rx Instructions .ROUTE .COMPLEX Qty: 90 1RF Dose Instruction: TAKE 1 TABLET BY MOUTH DAILY Rx Instructions: TAKE 1 TABLET BY MOUTH DAILY furosemide 20 mg tablet 20 mg PO QAM Qty: 30 3RF omeprazole 20 mg capsule,delayed release(DR/EC) 20 mg PO BID Qty: 180 0RF Held methimazole 10 mg tablet 10 mg PO DAILY Qty: 90 1RF Hold Instructions: Resume on 03/06/25. Hold until follow up with Endocrinology Discontinued azithromycin 250 mg tablet See Rx Instructions PO .COMPLEX Qty: 6 0RF Rx Instructions: take 500 mg today (day 1), then 250 mg for 4 days (days 2-5) PO Date of admission: 01/21/25 08:07 Primary Care Provider: Oliverio Nelson Admitting Provider: Cecy Villafana Attending physician on admission: Lindsey Winkler Condition: Stable Hospitalist MIPS Heart Failure (Exclusion) Patient has history of Heart Transplant or Left Ventricular Assistive Device?: No IF YES, STOP HERE Heart Failure (Qualifier) Patient has current or prior documentation of LVEF less than or equal to 40%, or mod/servere depressed LVSF?: No IF NO, STOP HERE
== END 2025-01-24 16:55 | disposition home health service (06) | DRG 177 ==
LOC: ANHED 14:07 → ANH3MEDSUR 17:56
PROVIDERS: Emergency Medicine; Student in an Organized Health Care Education/Training Program; Admitting Provider Family Medicine; Emergency Provider Physician Assistant; PCP Family Medicine; Visit Provider Student in an Organized Health Care Education/Training Program
DX: U07.1 COVID-19 (principal); I50.31 Acute diastolic (congestive) heart failure; I11.0 Hypertensive heart disease with heart failure; J10.1 Influenza due to other identified influenza virus with other respiratory manifestations; E83.42 Hypomagnesemia; E87.6 Hypokalemia; J44.9 Chronic obstructive pulmonary disease, unspecified; I48.91 Unspecified atrial fibrillation; L40.9 Psoriasis, unspecified; M85.80 Other specified disorders of bone density and structure, unspecified site; K21.9 Gastro-esophageal reflux disease without esophagitis; M47.816 Spondylosis without myelopathy or radiculopathy, lumbar region; Z66 Do not resuscitate; E05.90 Thyrotoxicosis, unspecified without thyrotoxic crisis or storm
CPT/HCPCS: 36415; 71046; 71275; 80048; 80053; 83735; 83880; 84132; 84436; 84443; 84480; 84484; 85025; 85027; 85610; 85730; 87637; 93005; 93306; 94640; 96365; 96366; 96367; 96375; 97161; 97165; 99285; A9270; G0378; J0248; J1940; J2919; J3475; J7512; Q9967